=== PATIENT | female | born 1960 | race Caucasian/White ===

== ENCOUNTER 2024-07-17 12:40 | Inpatient (IN) ==
[2024-07-17 14:30] LABS: Basophils # (auto) 0.03 K/uL (0.00-0.20); Basophils % (auto) 0.3 %; Hemoglobin 14.8 g/dl (12.0-16.0); Immature Granulocytes # (auto) 0.02 K/uL (0.01-0.20); Immature Granulocytes % (auto) 0.2 %; Lymphocytes # (auto) 1.39 K/uL (1.20-3.40); Lymphocytes % (auto) 16.1 %; Mean Corpuscular Hemoglobin 29.5 pg (25.0-34.0); Mean Corpuscular Hgb Conc 34.4 g/dL (32.0-36.0); Mean Corpuscular Volume 85.8 fL (80.0-100.0); Mean Platelet Volume 9.4 fL (9.4-12.4); Monocytes # (auto) 0.54 K/uL (0.11-0.59); Monocytes % (auto) 6.3 %; Neutrophils # (auto) 6.66 K/uL (1.40-6.50); Neutrophils % (auto) 77.1 %; Platelet Count 350 K/uL (130-400); RDW Coefficient of Variation 13.4 % (11.5-14.5); RDW Standard Deviation 41.5 fL (36.4-46.3); Red Blood Count 5.01 M/uL (4.20-5.40); White Blood Count 8.64 K/ul (4.8-10.8)
[2024-07-17 14:49] LABS: Albumin Globulin Ratio 1.5 (0.9-2); Albumin Level 4.5 gm/dl (3.4-5.0); BUN Creatinine Ratio 22.4 (10-20); Bilirubin,Total 0.5 mg/dl (0.2-1.0); Calcium 9.6 mg/dl (8.6-10.3); Creatinine Clr Calc Pharmacy 56.3 ml/min; Total Protein 7.5 gm/dl (6.0-8.3)
[2024-07-17] MEDS: cefTRIAXone SODIUM 2,000 MG/50 ML BAG IV STA (14:57)
--- NOTE | 2024-07-17 15:07 | History & Physical Report ---
Date of Service July 17, 2024 Assessment & Plan (1) Confusion: (2) UTI (urinary tract infection): Plan: Ester Khalil is 63y/o F with PMHx significant for mild intellectual disability, hypothyroidism, HLD, intermittent asthma, osteoarthritis of R knee, GERD without esophagitis and allergic rhinitis who is being admitted under our service due to confusion which is likely secondary to her acute underlying UTI with preliminary urine culture growing Citrobacter koseri. Check head CT given increasing confusion/altered mentation level. Underlying intellectual disability however patient is typically A&Ox4. Now mostly A&O to self. S/p dose of IV Rocephin in the ED. Continue IV Rocephin pending urine culture sensitivities. Obtain PT/OT evaluations. (3) Hypothyroidism: Plan: Continue levothyroxine. Other Chronic Medical Conditions: Asthma - Continue Singulair. DVT Prophylaxis: SCDs/TEDs for now pending head CT results. Code Status: FULL CODE PCP: KRAIG Floyd Disposition: Admit to med/surg for further inpatient evaluation and management. Patient seen in collaboration with Dr. Alvarez. Please see addendum. I spent a total of 40 minutes coordinating, documenting, and providing care for this patient excluding time spent in the performance of separately billed services or time spent by another provider/QHP. This included personally reviewing all current laboratories and imaging studies, medical reconciliation, outpatient chart review and discussion with specialists. This chart was completed in part utilizing Speech Voice Recognition Software. Grammatical errors, random word insertions, pronoun errors, and incomplete sentences are an occasional consequence of this system due to software limitations, ambient noise, and hardware issues. Any formal questions or concerns about the content, text, or information contained within the body of this dictation should be directly addressed to the provider for clarification. History of Present Illness Chief Complaint: Confusion Primary Care Provider: KRAIG Floyd Ester Khalil is 63y/o F with PMHx significant for mild intellectual disability, hypothyroidism, HLD, intermittent asthma, GERD without esophagitis and allergic rhinitis who presented to the ED via EMS from home as her caregivers were concerned about increased confusion. Majority of history obtained from discussion with patient's caregiver through [facility]. Additional history obtained via chart review. Patient previously seen and evaluated in the ED yesterday due to confusion. Diagnosed with a UTI and discharged home on a course of Keflex. Preliminary urine culture growing Citrobacter koseri, sensitivities pending. Patient initially quite somnolent upon entry into her room in the ED however she was able to be aroused with tactile stimulation. Patient mostly A&O to self however does respond appropriately to direct questioning. Per her caregivers at bedside, patient is usually A&Ox4. She lives at home alone however is visited daily by her caregivers through [facility]. Yesterday patient would not allow her caregivers to enter her apartment which is very unusual. Patient was reportedly experiencing visual hallucinations yesterday. Upon caregiver arrival at her apartment today, patient was found sitting in a room with the lights off. Patient again was visually hallucinating and believed that her apartment was on fire. This has never happened before per discussion with her caregivers. Patient usually handles her own medications and performs ADLs independently. She does not drive. Patient's brother lives locally per her caregivers and he was the one who brought her into the ED yesterday. Patient did not take any of her prescribed Keflex from yesterday. Patient offers no complaints. Denies any SOB, chest pain, abdominal pain, dysuria, hematuria or increased urinary frequency with direct questioning. Endorses that she is feeling hungry. Did reportedly breakfast this morning. Patient is not oriented to time or place however is able to recall her caregivers' names whom are at bedside. Home Medications Medication Instructions Recorded Confirmed Type levothyroxine 125 mcg tablet 125 mcg PO DAILY #0 tabs 04/15/13 07/17/24 History olopatadine 0.1 % eye drops 1 drp OPB UD PRN Dry Eyes #0 BTLS 04/15/13 07/17/24 History cephalexin 500 mg capsule 500 mg PO TID 7 days #21 caps 07/16/24 07/17/24 Rx montelukast 10 mg tablet 10 mg PO DAILY 07/16/24 07/17/24 History omeprazole 20 mg capsule,delayed 20 mg PO DAILY 07/16/24 07/17/24 History release Past Med/Surg History Problem List Hypothyroidism Confusion UTI (urinary tract infection) (Acute) Thyroid dysfunction (Chronic) Syncope (Acute) Syncope (Acute) Social History Smoking Status: Never smoker Preferred Language: Yemeni Feels Safe at Home: Yes Review of Systems Review of Systems: Patient does well with direct yes/no questioning. At least ten systems reviewed and negative, except as noted in the HPI. Physical Exam Physical Exam: General/Neurologic: F. Nontoxic appearance. NAD. Sitting up in bed. Caregivers from [facility] at bedside. Initially somnolent however easily aroused with both tactile and verbal stimulation. A&O mostly to self however does well with direct questioning. HEENT: Normocephalic, atraumatic. Conjunctivae normal. External ear and nose normal. Moist mucous membranes. Respiratory: Normal respiratory effort. Decreased lung sounds throughout. On RA. No accessory muscle use. Cardiovascular: Regular rate and rhythm. Normal peripheral pulses. + BLE edema. Abdomen/GI: Normal bowel sounds, soft, nondistended, nontender to palpation in all quadrants. Extremities/Musculoskeletal: No cyanosis or clubbing. Actively moves all extremities. + chronic R-sided limp. Results & Data Results & Data Vital Signs (Past 12 Hours) Vital Signs Temp Pulse Resp BP Pulse Ox O2 Del Method 07/17/24 14:30 137/62 07/17/24 14:20 59 L 12 98 07/17/24 14:02 62 13 07/17/24 14:01 125/54 L 07/17/24 13:30 114/60 07/17/24 13:12 73 16 95 07/17/24 13:06 83 18 96 07/17/24 13:01 112/51 L 07/17/24 12:58 65 07/17/24 12:55 36.1 C L 68 18 109/62 97 Room Air 07/17/24 12:54 62 18 97 07/17/24 12:49 109/62 Laboratory Results Short CBC 07/17/24 Range/Units 14:15 WBC 8.64 (4.8-10.8) K/ul Hgb 14.8 (12.0-16.0) g/dl Hct 43.0 (37.0-47.0) % Plt Count 350 (130-400) K/uL BMP 07/17/24 14:15 Sodium 141 Potassium 4.0 Chloride 104 Carbon Dioxide 30 BUN 22 Creatinine 0.98 Glucose 107 H Calcium 9.6 Liver Function 07/17/24 Range/Units 14:15 Total Bilirubin 0.5 (0.2-1.0) mg/dl AST 14 (13-39) U/L ALT 16 (7-52) U/L Alkaline Phosphatase 87 (34-104) U/L Albumin 4.5 (3.4-5.0) gm/dl Medications Administered Ceftriaxone Sodium (Rocephin) 2,000 mg in 50 mls @ 100 mls/hr IV NOW STA Stop: 07/17/24 15:14 Last Admin: 07/17/24 14:57 Dose: 100 mls/hr Documented By: VME Code Status & VTE Plan Code Status FULL CODE Supervising Physician Co-Signing Physician Notes Attending addendum: The patient was seen and examined in the emergency room in presence of the caregivers She was brought in with increasing confusion and hallucination likely secondary to ongoing UTI She was in the ER yesterday and was noted to have a UTI was given Keflex and was sent home She was noted to be very confused this morning by the caregivers and she was hallucinating at the point she was brought into emergency room No documented fever, nausea vomiting fall or loss of consciousness On examination Has been feeling much better and communicating normally Remains hemodynamically stable and is afebrile Chestoccasional crackles at the bases HeartS1-S2, regular Abdomenbenign Extremities- has 1+ bilateral leg edema CNSalert, awake and oriented x 3, generally weak but no focal neurodeficit Her admission labs and medications reviewed Urine culture is growing Citrobacter koseri , sensitivities pending Started on intravenous ceftriaxone and will be continued Advised to drink more fluid Will get PT OT evaluation prior to discharge Agree with assessment and plan as outlined above by dilan Harvey PA-C and take the full responsible care in the hospital Total time taken to document all this was [address] Carey Alvarez (2) UTI (urinary tract infection) Hematuria presence: without hematuria Urinary tract infection type: site unspecified Qualified Code(s): N39.0 - Urinary tract infection, site not specified (3) Hypothyroidism Hypothyroidism type: unspecified Qualified Code(s): E03.9 - Hypothyroidism, unspecified
--- NOTE | 2024-07-17 15:23 | Emergency Department Note ---
Impression & Plan UTI (urinary tract infection), Confusion, Delirium due to general medical condition ED Provider Note NAME: KALEE RYAN AGE: 63 SEX: F : 1960 ARRIVES VIA: Ambulance INFORMANT: [Patient], ED PROVIDER(S): Francy Rivas MD CHIEF COMPLAINT: Hallucinations, confusion HPI: This is a 63-year-old female presenting for confusion. Patient is with 2 staff members from the [facility] who state that patient was seen here yesterday. Brother said it was okay for her to be discharged at this morning when they arrived to help her she was hallucinating. She thought that the house was on fire. Yesterday she would not let anyone into the house. Today she seems to be smiling /waving to people that are not there . ROS: See above HPI for pertinent positives & negatives. A total of 10 systems reviewed and were otherwise negative. PAST MEDICAL HISTORY: See Below PAST SURGICAL HISTORY: See Below FAMILY HISTORY: See Below SOCIAL HISTORY: See Below HOME MEDICATIONS: See Below ALLERGIES: See Below VITALS: See Below PHYSICAL EXAMINATION: General: resting comfortably in no acute distress Head: Normocephalic and atraumatic Eyes: Normal inspection, extraocular muscles intact Ear, nose, throat: Normal external exam Neck: Normal range of motion Respiratory: lungs clear to auscultation bilaterally Cardiovascular: Regular rate/rhythm, no murmur GI: soft, nontender, no guarding or rebound Extremities: nontender, moves all extremities Neuro: The patient awake and alert, appropriately conversive, no focal deficits, symmetric faces, no motor dysfunction Skin: Warm, dry, and intact, MEDICAL DECISION MAKING: This is a 63-year-old female presenting for confusion. Patient seen here yesterday basic blood work, urinalysis. Does reveal signs of UTI without other abnormalities. Patient sent home and returns due to confusion persistent. - Will admit for UTI, given ceftriaxone IV here. - Urine culture positive for Citrobacter Differential diagnosis: UTI, cystitis, pyelonephritis, stroke Independent History obtained from: Staff members at [facility] Diagnostics interpreted by me: ECG: None Cardiac Monitoring: An order was placed for continuous cardiac monitoring. The monitor shows a rate of 78 with sinus rhythm. Past Med/Surg History Problem List (Updated 07/17/24 @ 18:59 by Francy Rivas MD) Delirium due to general medical condition (Acute) Hypothyroidism Confusion (Acute) UTI (urinary tract infection) (Acute) Thyroid dysfunction (Chronic) Syncope (Acute) Syncope (Acute) Social History Smoking Status: Never smoker Preferred Language: [place] Feels Safe at Home: Yes Allergies Allergies Allergy/AdvReac Type Severity Reaction Status Date / Time No Known Allergies Allergy Unverified 07/17/24 17:49 Home Meds Home Medications Medication Instructions Recorded Confirmed levothyroxine 125 mcg tablet 125 mcg PO DAILY #0 tabs 04/15/13 07/17/24 olopatadine 0.1 % eye drops 1 drp OPB UD PRN Dry Eyes #0 BTLS 04/15/13 07/17/24 montelukast 10 mg tablet 10 mg PO DAILY 07/16/24 07/17/24 omeprazole 20 mg capsule,delayed 20 mg PO DAILY 07/16/24 07/17/24 release Previous Rx's Medication Instructions Recorded cephalexin 500 mg capsule 500 mg PO TID 7 days #21 caps 07/16/24 Results & Data (ED) Vital Signs Vital Signs - 24 hr 07/17/24 12:49 07/17/24 12:54 07/17/24 12:55 Temperature 36.1 C L Temperature Source Oral Pulse Rate 62 68 Pulse Rate from SpO2 Sensor 63 Pulse Rhythm Regular Pulse Strength Normal Respiratory Rate 18 18 Respiratory Effort / Characteristics Non-Labored Respiratory Depth Normal Respiratory Pattern Regular Blood Pressure 109/62 109/62 Blood Pressure Mean 90 77 Blood Pressure Position Lying Pulse Oximetry 97 97 Oxygen Delivery Method Room Air Sepsis Recent Fever Within 48 Hours No Sepsis New/Unexplained Change in Mental Status No Sepsis Action Taken by Nursing No Action Required 07/17/24 12:58 07/17/24 13:01 07/17/24 13:06 Temperature Temperature Source Pulse Rate 65 83 Pulse Rate from SpO2 Sensor 82 Pulse Rhythm Pulse Strength Respiratory Rate 18 Respiratory Effort / Characteristics Respiratory Depth Respiratory Pattern Blood Pressure 112/51 L Blood Pressure Mean 92 Blood Pressure Position Pulse Oximetry 96 Oxygen Delivery Method Sepsis Recent Fever Within 48 Hours Sepsis New/Unexplained Change in Mental Status Sepsis Action Taken by Nursing 07/17/24 13:12 07/17/24 13:30 07/17/24 14:01 Temperature Temperature Source Pulse Rate 73 Pulse Rate from SpO2 Sensor 72 Pulse Rhythm Pulse Strength Respiratory Rate 16 Respiratory Effort / Characteristics Respiratory Depth Respiratory Pattern Blood Pressure 114/60 125/54 L Blood Pressure Mean 83 78 Blood Pressure Position Pulse Oximetry 95 Oxygen Delivery Method Sepsis Recent Fever Within 48 Hours Sepsis New/Unexplained Change in Mental Status Sepsis Action Taken by Nursing 07/17/24 14:02 07/17/24 14:20 07/17/24 14:30 Temperature Temperature Source Pulse Rate 62 59 L Pulse Rate from SpO2 Sensor 59 L Pulse Rhythm Pulse Strength Respiratory Rate 13 12 Respiratory Effort / Characteristics Respiratory Depth Respiratory Pattern Blood Pressure 137/62 Blood Pressure Mean 98 Blood Pressure Position Pulse Oximetry 98 Oxygen Delivery Method Sepsis Recent Fever Within 48 Hours Sepsis New/Unexplained Change in Mental Status Sepsis Action Taken by Nursing Laboratory Data 07/17/24 14:15 07/17/24 14:15 Lab Results 07/17/24 Range/Units 14:15 WBC 8.64 (4.8-10.8) K/ul RBC 5.01 (4.20-5.40) M/uL Hgb 14.8 (12.0-16.0) g/dl Hct 43.0 (37.0-47.0) % MCV 85.8 (80.0-100.0) fL MCH 29.5 (25.0-34.0) pg MCHC 34.4 (32.0-36.0) g/dL RDW Std Deviation 41.5 (36.4-46.3) fL RDW Coeff of Yann 13.4 (11.5-14.5) % Plt Count 350 (130-400) K/uL MPV 9.4 (9.4-12.4) fL Immature Gran % (Auto) 0.2 % Neut % (Auto) 77.1 % Lymph % (Auto) 16.1 % [place] % (Auto) 6.3 % Eos % (Auto) 0.0 % Baso % (Auto) 0.3 % Neut # (Auto) 6.66 H (1.40-6.50) K/uL Lymph # (Auto) 1.39 (1.20-3.40) K/uL [place] # (Auto) 0.54 (0.11-0.59) K/uL Eos # (Auto) 0.00 (0.00-0.50) K/uL Baso # (Auto) 0.03 (0.00-0.20) K/uL Immature Gran # (Auto) 0.02 (0.01-0.20) K/uL Sodium 141 (136-145) mmol/L Potassium 4.0 (3.5-5.1) mmol/L Chloride 104 (98-107) mmol/L Carbon Dioxide 30 (21-32) mmol/L Anion Gap 7 (3-11) BUN 22 (6-23) mg/dl Creatinine 0.98 (0.6-1.2) mg/dl Est Cr Clr Drug Dosing 56.3 ml/min eGFR 65.67 BUN/Creatinine Ratio 22.4 H (10-20) Glucose 107 H (70-99(Fasting)) mg/dl Calcium 9.6 (8.6-10.3) mg/dl Total Bilirubin 0.5 (0.2-1.0) mg/dl AST 14 (13-39) U/L ALT 16 (7-52) U/L Alkaline Phosphatase 87 (34-104) U/L Total Protein 7.5 (6.0-8.3) gm/dl Albumin 4.5 (3.4-5.0) gm/dl Globulin 3.0 (2.5-4.0) gm/dl Albumin/Globulin Ratio 1.5 (0.9-2) Administered Medications Discontinued Medications Ceftriaxone Sodium (Rocephin) 2,000 mg in 50 mls @ 100 mls/hr IV NOW STA Stop: 07/17/24 15:14 Last Infusion: 07/17/24 15:20 Dose: Infused Documented By: Admin: 07/17/24 14:57 Dose: 100 mls/hr Documented By: NANETTE Miscellaneous Information (Patient's Allergy Info Needs Entered) 1 each N/A Q10M [facility] Stop: 08/16/24 17:44 Last Admin: 07/17/24 18:47 Dose: Not Given Documented By: NICOLASA Discharge Plan Visit Data Chief Complaint: Confusion ED Provider: Francy Rivas Discharge Problem: UTI (urinary tract infection), Confusion, Delirium due to general medical condition Patient Disposition: Admitted As Inpatient Discharge Instructions Interventions: ED Discharge Assessment Last Done: 07/17/24 17:34
--- NOTE | 2024-07-17 17:00 | CT Scan Report ---
Clinical History: Altered mental status Technique: Axial computed tomography images were obtained of the brain from the vertex to the skull base without intravenous contrast. Findings: There is no sign of intracranial hemorrhage. There is normal hansen-white matter differentiation with no sign of acute or old infarction. No midline shift or other form of herniation is identified. There is no hydrocephalus. No obvious mass lesion is seen on this noncontrast examination. The visualized portions of the orbits and paranasal sinuses appear unremarkable. The mastoid air cells appear clear Impression: Unremarkable noncontrast CT of the brain Electronically signed by Krunal Tariq 07-17-2024 5:00 PM
[2024-07-17] MEDS ORDERED: ONDANSETRON INJ 2 MG/ML 2 ML VIAL IV PRN (17:34)
[2024-07-17] MEDS ORDERED: POLYETHYLENE (MIRALAX) 17 GM PACK PO PRN (17:34)
[2024-07-17] MEDS ORDERED: MAGNESIUM HYDROXIDE SUSP 30 ML UDC PO PRN (17:34)
[2024-07-17] MEDS ORDERED: ARTIFICIAL TEARS OP PRN (17:51)
[2024-07-17] MEDS: Patient's ALLERGY Info needs ENTERED SCH (18:47)
[2024-07-18] MEDS: LEVOTHYROXINE SODIUM 125 MCG TABLET PO SCH (05:45)
[2024-07-18 06:57] LABS: Hematocrit (blood only) 41.7 % (37.0-47.0); Hemoglobin 14.2 g/dl (12.0-16.0); Mean Corpuscular Hemoglobin 29.3 pg (25.0-34.0); Mean Corpuscular Hgb Conc 34.1 g/dL (32.0-36.0); Mean Corpuscular Volume 86.2 fL (80.0-100.0); Platelet Count 310 K/uL (130-400); RDW Coefficient of Variation 13.2 % (11.5-14.5); RDW Standard Deviation 41.1 fL (36.4-46.3); Red Blood Count 4.84 M/uL (4.20-5.40); White Blood Count 6.36 K/ul (4.8-10.8)
[2024-07-18 07:17] LABS: BUN Creatinine Ratio 30.1 (10-20); Calcium 8.8 mg/dl (8.6-10.3); Creatinine Clr Calc Pharmacy 68.5 ml/min; Magnesium 2.1 mg/dl (1.7-2.4); Potassium 3.7 mmol/L (3.5-5.1)
--- NOTE | 2024-07-18 07:50 | Hospitalist Progress Note ---
Date of Service July 18, 2024 Assessment & Plan (1) Confusion: (2) UTI (urinary tract infection): Plan: Ester Khalil is 63y/o F with PMHx significant for mild intellectual disability, hypothyroidism, HLD, intermittent asthma, osteoarthritis of R knee, GERD without esophagitis and allergic rhinitis who is being admitted under our service due to confusion which is likely secondary to her acute underlying UTI with preliminary urine culture growing Citrobacter koseri. -Head CT obtained 07/17; unremarkable and no signs of ICH, SDH, or midline shift. -IV Rocephin started in the ED; culture and sensitivities have returned and sensitive to Rocephin; will continue for now. -Underlying intellectual disability; however patient is AO x 3 ; however, now reliable regarding her medical ailments and not able to participate in a meaningful conversation regarding her hospital stay.; -Lengthy conversation held with Joe who is the director at [facility] who indicated that this is not her baseline and he anticipates that at her baseline she would be able to answer these questions. -She, at baseline, is relatively sharp cognitively and is able to live independently for the past numerous years. She does have people check in on her from [facility] numerous times throughout the week and they drive her to appointments. -Suspect patient will return more to baseline functional cognitive status over next 24 to 48 hours with IV antibiotic infusing. -Anticipate patient to be hospitalized throughout the weekend. -PT OT evals pending. (3) Hypothyroidism: Plan: Continue levothyroxine. Other Chronic Medical Conditions: Asthma - Continue Singulair. Disposition: DVT Prophylaxis: SCDs/TEDs for now pending head CT results. Code Status: FULL CODE PCP: KRAIG Floyd I spent a total of 56 minutes coordinating, documenting, and providing care for this patient excluding time spent in the performance of separately billed services or time spent by another provider/QHP. This included personally rev iewing all current laboratories and imaging studies, medical reconciliation, outpatient chart review and discussion with specialists. Admission and Anticipated Discharge Date Admission Date: July 17, 2024 Supervising Physician Co-Signing Physician Notes I have reviewed the advanced practitioner's documentation, and I agree with, and take responsibility for the plan of care Subjective Patient sitting in her hospital bed in no apparent distress - she is focal and able to answer simple questions; AAO x 2. She is able to state her birthday, what year it is and that she is in the hospital however is unsure of why she is in the hospital. I asked her directly a few specific questions including what kind of animal Cira and [place] are from [employer] and she was unable to answer this. Lengthy conversation held with Joe who is the director at [facility] who indicated that this is not her baseline and he anticipates that at her baseline she would be able to answer these questions. She, at baseline, is relatively sharp cognitively and is able to live independently for the past numerous years. She does have people check in on her from [facility] numerous times throughout the week and they drive her to appointments. Limited ROS due to intellectual disability. See A/P for further details. Review of Systems Review of Systems: Unobtainable due to cognitive status Limited ROS due to intellectual disability. Patient denies pain, shortness of breath, chest pain. Physical Exam Physical Exam: Neuro: AAOx4, PERRLA, no aphagia, memory changes, CNII-XII grossly intact HEENT: head normocephalic, moist mucus membranes CV: S1/S2, (-) M/G/R, (-) edema, cap refill < 3 seconds Resp: Lungs CTA in all [place]. On RA GI: Abdomen S/NT/ND, Ax4 bowel sounds, (-) CVA tenderness Musculoskeletal: 5/5 B/L UE strength, 5/5 B/L LE strength. No gait disturbance Skin: (-) rashes , (-) erythema. Psych: euthymic mood Results & Data Results & Data Vital Signs (Past 12 Hours) Vital Signs Temp Pulse Resp BP Pulse Ox O2 Del Method 07/18/24 07:42 36.5 C 70 16 113/72 97 Room Air 07/17/24 20:45 36.3 C L 86 16 128/81 95 Room Air Laboratory Results Short CBC 07/17/24 07/18/24 Range/Units 14:15 05:59 WBC 8.64 6.36 (4.8-10.8) K/ul Hgb 14.8 14.2 (12.0-16.0) g/dl Hct 43.0 41.7 (37.0-47.0) % Plt Count 350 310 (130-400) K/uL BMP 07/17/24 07/18/24 14:15 05:59 Sodium 141 139 Potassium 4.0 3.7 Chloride 104 105 Carbon Dioxide 30 28 BUN 22 25 H Creatinine 0.98 0.83 Glucose 107 H 90 Calcium 9.6 8.8 Liver Function 07/17/24 Range/Units 14:15 Total Bilirubin 0.5 (0.2-1.0) mg/dl AST 14 (13-39) U/L ALT 16 (7-52) U/L Alkaline Phosphatase 87 (34-104) U/L Albumin 4.5 (3.4-5.0) gm/dl (3) Hypothyroidism Hypothyroidism type: unspecified Qualified Code(s): E03.9 - Hypothyroidism, unspecified
[2024-07-18] MEDS: ADVANCED PROBIOTIC 625 MG CAPSULE PO SCH (08:31)
[2024-07-18] MEDS: MONTELUKAST SODIUM 10 MG TABLET PO SCH (08:31)
[2024-07-18] MEDS: PANTOprazole 40 MG TAB PO SCH (08:31)
[2024-07-18] MEDS: cefTRIAXone SODIUM 2,000 MG/50 ML BAG IV SCH (14:58)
[2024-07-19 06:25] LABS: Hematocrit (blood only) 40.2 % (37.0-47.0); Hemoglobin 13.7 g/dl (12.0-16.0); Mean Corpuscular Hemoglobin 29.5 pg (25.0-34.0); Mean Corpuscular Hgb Conc 34.1 g/dL (32.0-36.0); Mean Corpuscular Volume 86.5 fL (80.0-100.0); Mean Platelet Volume 9.6 fL (9.4-12.4); Platelet Count 310 K/uL (130-400); RDW Coefficient of Variation 13.3 % (11.5-14.5); RDW Standard Deviation 41.4 fL (36.4-46.3); Red Blood Count 4.65 M/uL (4.20-5.40); White Blood Count 6.49 K/ul (4.8-10.8)
[2024-07-19 06:54] LABS: BUN Creatinine Ratio 32.1 (10-20); Calcium 8.9 mg/dl (8.6-10.3); Creatinine Clr Calc Pharmacy 72.8 ml/min; Potassium 3.9 mmol/L (3.5-5.1)
--- NOTE | 2024-07-19 07:49 | Hospitalist Progress Note ---
Date of Service July 19, 2024 Assessment & Plan (1) Confusion: (2) UTI (urinary tract infection): Plan: Ester Khalil is 63y/o F with PMHx significant for mild intellectual disability, hypothyroidism, HLD, intermittent asthma, osteoarthritis of R knee, GERD without esophagitis and allergic rhinitis who is being admitted under our service due to confusion which is likely secondary to her acute underlying UTI with preliminary urine culture growing Citrobacter koseri. -Head CT 07/17; unremarkable -IV Rocephin started in the ED; culture and sensitivities have returned and sensitive to Rocephin; continue -Underlying intellectual disability; however patient is AO x 3 ; improving and able to participate in a meaningful conversation regarding her hospital stay. -07/18 s/w Joe, director at [facility], who indicated that this is not her baseline and he anticipates that at her baseline she would be able to answer these questions. -She, at baseline, is relatively sharp cognitively and is able to live independently for the past numerous years. She does have people check in on her from [facility] numerous times throughout the week and they drive her to appointments. -Suspect pt is reaching baseline functional cognitive status -Anticipate patient can possibly be discharged tomorrow 07/20 with transition to PO abx -PT OT evals recc return home with assistance from caregivers throughout the week (3) Hypothyroidism: Plan: Continue levothyroxine. Other Chronic Medical Conditions: Asthma - Continue Singulair. Disposition: DVT Prophylaxis: SCDs/TEDs for now pending head CT results. Code Status: FULL CODE PCP: KRAIG Floyd Anticipate return to [facility] independent living 07/20 I spent a total of 55 minutes coordinating, documenting, and providing care for this patient excluding time spent in the performance of separately billed services or time spent by another provider/QHP. This included personally reviewing all current laboratories and imaging studies, medical reconciliation, outpatient chart review and discussion with specialists. Admission and Anticipated Discharge Date Admission Date: July 17, 2024 Supervising Physician Co-Signing Physician Notes Attending addendum The patient was seen and examined in medical floor She has been feeling much better today and seems to be mentally lot clear Denies any significant symptoms On examination Lying in bed without any apparent distress Remains hemodynamically stable Physical examination remains unremarkable Her labs and medications reviewed Has Citrobacter Koseri UTI which is pansensitive and has been getting intraveno us antibiotic with ceftriaxone Her confusion with history of mild intellectual impairment has improved a lot Agree with assessment and plan as outlined above by KRAIG Hill and take the full responsibility of care in the hospital Total time taken to document all this was [address] Carey Alvarez Subjective Patient sitting in her hospital bed in no apparent distress - her mental status has significantly improved from yesterday. She is able to answer all questions appropriately; AO x 3. Per discussion with Joe who is the director of [facility] yesterday her baseline is relatively sharp which appears that she is entering more near her baseline. She is able to deny chest pain, dizziness, shortness of breath. Appreciate Limited ROS due to intellectual disability but does appear pretty appropriate. Patient on day 3 of IV antibiotics; anticipate possible discharge for Thursday 07/20 with transition to oral. See A/P for further details. Review of Systems Review of Systems: Limited ROS due to intellectual disability. Patient denies pain, shortness of breath, chest pain, abdominal pain. Physical Exam Physical Exam: Neuro: AAOx4, PERRLA, no aphagia, memory changes, CNII-XII grossly intact HEENT: head normocephalic, moist mucus membranes CV: S1/S2, (-) M/G/R, (-) edema, cap refill < 3 seconds Resp: Lungs CTA in all hidalgo. On RA GI: Abdomen S/NT/ND, Ax4 bowel sounds, (-) CVA tenderness Musculoskeletal: 5/5 B/L UE strength, 5/5 B/L LE strength. No gait disturbance Skin: (-) rashes , (-) erythema. Psych: euthymic mood Results & Data Results & Data Laboratory Results Short CBC 07/19/24 Range/Units 06:02 WBC 6.49 (4.8-10.8) K/ul Hgb 13.7 (12.0-16.0) g/dl Hct 40.2 (37.0-47.0) % Plt Count 310 (130-400) K/uL BMP 07/19/24 06:02 Sodium 140 Potassium 3.9 Chloride 108 H Carbon Dioxide 26 BUN 25 H Creatinine 0.78 Glucose 103 H Calcium 8.9 (3) Hypothyroidism Hypothyroidism type: unspecified Qualified Code(s): E03.9 - Hypothyroidism, unspecified
[2024-07-19] MEDS: ACETAMINOPHEN 325 MG TAB PO PRN (08:31)
[2024-07-19 15:21] VITALS: RESP 16
[2024-07-20 07:29] VITALS: BP 137/77; PULSE 60; TEMP 97.7; O2SAT 96
[2024-07-20 07:35] LABS: Hematocrit (blood only) 40.9 % (37.0-47.0); Hemoglobin 13.6 g/dl (12.0-16.0); Mean Corpuscular Hgb Conc 33.3 g/dL (32.0-36.0); Mean Corpuscular Volume 87.2 fL (80.0-100.0); Mean Platelet Volume 9.8 fL (9.4-12.4); Platelet Count 303 K/uL (130-400); RDW Coefficient of Variation 13.3 % (11.5-14.5); RDW Standard Deviation 41.4 fL (36.4-46.3); Red Blood Count 4.69 M/uL (4.20-5.40); White Blood Count 7.45 K/ul (4.8-10.8)
[2024-07-20 07:56] LABS: BUN Creatinine Ratio 22.7 (10-20); Calcium 8.8 mg/dl (8.6-10.3); Creatinine Clr Calc Pharmacy 64.6 ml/min; Potassium 4.2 mmol/L (3.5-5.1)
--- NOTE | 2024-07-20 13:30 | Discharge Summary ---
Date of Service July 20, 2024 Admission HPI Per Admitting Provider Ester Khalil is 63y/o F with PMHx significant for mild intellectual disability, hypothyroidism, HLD, intermittent asthma, GERD without esophagitis and allergic rhinitis who presented to the ED via EMS from home as her caregivers were concerned about increased confusion. Majority of history obtained from discussion with patient's caregiver through [facility]. Additional history obtained via chart review. Patient previously seen and evaluated in the ED yesterday due to confusion. Diagnosed with a UTI and discharged home on a course of Keflex. Preliminary urine culture growing Citrobacter koseri, sensitivities pending. Patient initially quite somnolent upon entry into her room in the ED however she was able to be aroused with tactile stimulation. Patient mostly A&O to self however does respond appropriately to direct questioning. Per her caregivers at bedside, patient is usually A&Ox4. She lives at home alone however is visited daily by her caregivers through [facility]. Yesterday patient would not allow her caregivers to enter her apartment which is very unusual. Patient was reportedly experiencing visual hallucinations yesterday. Upon caregiver arrival at her apartment today, patient was found sitting in a room with the lights off. Patient again was visually hallucinating and believed that her apartment was on fire. This has never happened before per discussion with her caregivers. Patient usually handles her own medications and performs ADLs independently. She does not drive. Patient's brother lives locally per her caregivers and he was the one who brought her into the ED yesterday. Patient did not take any of her prescribed Keflex from yesterday. Patient offers no complaints. Denies any SOB, chest pain, abdominal pain, dysuria, hematuria or increased urinary frequency with direct questioning. Endorses that she is feeling hungry. Did reportedly breakfast this morning. Patient is not oriented to time or place however is able to recall her caregivers' names whom are at bedside. Admission Exam Per Admitting Provider General/Neurologic: F. Nontoxic appearance. NAD. Sitting up in bed. Caregivers from [facility] at bedside. Initially somnolent however easily aroused with both tactile and verbal stimulation. A&O mostly to self however does well with direct questioning. HEENT: Normocephalic, atraumatic. Conjunctivae normal. External ear and nose normal. Moist mucous membranes. Respiratory: Normal respiratory effort. Decreased lung sounds throughout. On RA. No accessory muscle use. Cardiovascular: Regular rate and rhythm. Normal peripheral pulses. + BLE edema. Abdomen/GI: Normal bowel sounds, soft, nondistended, nontender to palpation in all quadrants. Extremities/Musculoskeletal: No cyanosis or clubbing. Actively moves all extremities. + chronic R-sided limp. Principal Diagnosis complicated UTI Discharge Exam Neuro: AAOx3 (back to baseline), PERRLA, no aphagia, memory changes, CNII-XII grossly intact HEENT: head normocephalic, moist mucus membranes CV: S1/S2, (-) M/G/R, (-) edema, cap refill < 3 seconds Resp: Lungs CTA in all hidalgo. On RA GI: Abdomen S/NT/ND, Ax4 bowel sounds, (-) CVA tenderness (+) some incontinence Musculoskeletal: 5/5 B/L UE strength, 5/5 B/L LE strength. has a light limp on left side Skin: (-) rashes , (-) erythema. Psych: euthymic mood Discharge Data Allergies Allergy/AdvReac Type Severity Reaction Status Date / Time No Known Allergies Allergy Unverified 07/17/24 17:49 Consultations 07/17/24 15:11 ED Decision to Admit Stat Ordered Studies 07/17/24: Head CT: Findings: There is no sign of intracranial hemorrhage. There is normal hansen-white matter differentiation with no sign of acute or old infarction. No midline shift or other form of herniation is identified. There is no hydrocephalus. No obvious mass lesion is seen on this noncontrast examination. The visualized portions of the orbits and paranasal sinuses appear unremarkable. The mastoid air cells appear clear Impression: Unremarkable noncontrast CT of the brain Hospital Course (1) Delirium due to general medical condition: (2) Hypothyroidism: Continue levothyroxine. Other Chronic Medical Conditions: Asthma - Continue Singulair. Disposition: DVT Prophylaxis: SCDs/TEDs for now pending head CT results. Code Status: FULL CODE PCP: KRAIG Floyd Anticipate return to [facility] independent living 07/20 I spent a total of 55 minutes coordinating, documenting, and providing care for this patient excluding time spent in the performance of separately billed services or time spent by another provider/QHP. This included personally reviewing all current laboratories and imaging studies, medical reconciliation, outpatient chart review and discussion with specialists. (3) Confusion: (4) UTI (urinary tract infection): Ester Khalil is 63y/o F with PMHx significant for mild intellectual disability, hypothyroidism, HLD, intermittent asthma, osteoarthritis of R knee, GERD without esophagitis and allergic rhinitis who is being admitted under our service due to confusion which is likely secondary to her acute underlying UTI with preliminary urine culture growing Citrobacter koseri. -Head CT 07/17; unremarkable -IV Rocephin started in the ED; culture and sensitivities have returned and sensitive to Rocephin; continue -Underlying intellectual disability; however patient is AO x 3 ; improving and able to participate in a meaningful conversation regarding her hospital stay. -07/18 s/w Joe, director at [facility], who indicated that this is not her baseline and he anticipates that at her baseline she would be able to answer these questions. -She, at baseline, is relatively sharp cognitively and is able to live independently for the past numerous years. She does have people check in on her from [facility] numerous times throughout the week and they drive her to appointments. -Suspect pt is reaching baseline functional cognitive status -Anticipate patient can possibly be discharged tomorrow 07/20 with transition to PO abx -[facility] with assistance from caregivers throughout the week Plan Ester Khalil is 63 year old female with a PMH that includes mild intellectual disability, hypothyroidism, HLD, intermittent asthma, osteoarthritis of R knee, GERD without esophagitis and allergic rhinitis who was admitted due to altered mental status which deemed secondary to her acute underlying UTI. A urine culture was obtained in the emergency room and grew Citrobacter koseri. A head CT was performed on 07/17 and unremarkable. She was started on IV antibiotics in the ED. Culture and sensitivities returned pansensitive to Rocephin. No leukocytosis was identified on labs. Otherwise her lab work was unremarkable. Each day over the weekend the patient continued to improve with her mental status and was able to participate in a meaningful conversation. I spoke with Joe the director at [facility] on Saturday and in person today, Thursday 07/20. Confirmed that she does live independently at baseline. Discussed that she does receive support regarding outpatient outings and staff does drive her to her appointments. There are concerns that she will not be able to keep track of her medications when she returns home. Her brother has recently returned home from [place] and is able to stay with her for a few days. [facility] will work on paperwork to increase the amount of supportive living that she has which can take a few days. Would support her receiving additional support at [facility] and even move towards a more personal-longterm setting within [facility] to meet her needs. OT did evaluate the patient and recommends that Returns home with extra support from caregivers. Patient did have a brief on and had an episode of incontinence. This was discussed with [facility] and they are receptive to her being discharged from the hospital and is in stable condition. She will receive 1 more dose of IV antibiotics prior to discharge today. Total Time Total Time Spent Total Time Spent (In Minutes): I spent a total of 46 minutes coordinating, documenting, and providing care for this patient excluding time spent inthe performance of separately billed services or time spent by another provider/QHP. Discharge Plan Discharge Items Patient Disposition: Home - Self-Care Reason For Visit: UTI, CONFUSION Discharge Diagnosis: complicated UTI Activity: Resume your previous activity Non-emergency contact: Primary Care Provider Call non-emergency contact if: your pain is unusual for you and your temperature is above 101.5 Follow-up/Referrals: Valorie Fowler CRNP [Primary Care Provider] - (Date & Time 07/24/2024 10:00 AM Provider: Valorie Fowler CRNP Family Practice [facility], [place] ) Diet: Regular Addtl Attending Provider Instructions: Ben Norman are a 63 year old presented to the [facility] with altered mental status which was deemed to be because you were having a urinary tract infection. We obtained a urine culture that was able to determine which bacteria you had in your urine. It is called "Citrobacter koseri" Blood work and a head CAT scan were obtained in the emergency room and normal. You were started on intravenous antibiotics. Each day over the weekend you continued to improve with her mental status and was able to participate in a meaningful conversation. Joe, from the [facility], has been involved with your improvement and we discussed that you have returned to your baseline cognitive status. Per Joe, your brother has recently returned home from [place] and is able to stay with you for a few days to ensure you are taking your medications. In the coming days, they will work on your getting additional support as well. We wish you well with your recovery. Please see below for medication changes and recommendations. MEDICATION CHANGES: 1. Please moss picker and take your oral antibiotic, Keflex 500 mg by mouth twice daily; starting on Friday 07/21 and continuing daily for four days, completing your antibiotic on SaturdayJuly 24. 2. Please take a daily probiotic while you are taking antibiotics and take them daily for one week after completing your antibiotics. SUMMARY OF TEST RESULTS: 1. 07/17/24: Head CT: FINDINGS: There is no sign of intracranial hemorrhage. There is normal hansen-white matter differentiation with no sign of acute or old infarction. No midline shift or other form of herniation is identified. There is no hydrocephalus. No obvious mass lesion is seen on this noncontrast examination. The visualized portions of the orbits and paranasal sinuses appear unremarkable. The mastoid air cells appear clear Impression: Unremarkable noncontrast CT of the brain RECOMMENDATIONS FOR FOLLOW-UP: 1. You have a follow up appointment for you to attend on SaturdayJuly 24 @ 10:00 AM with Valorie CORNELL at Family Practice in [facility], [place] OTHER INSTRUCTIONS: Seek medical attention if you have: * temperature above 101 * chest pain or trouble breathing * abdominal pain, nausea, vomiting * diarrhea, dark stools or bloody stools * any unanswered questions or concerns Call 911 if symptoms are severe. Please take good care of yourself. It has been a pleasure taking care of you. Please take care of yourself. If you have any questions regarding your recent hospitalization please contact [facility] and request Gonzalez Russoist @ [phone]. Pending Studies at Discharge: No Stand-Alone Forms: My [facility], Smoking Cessation Medications and DC Order Prescriptions: New Advanced Probiotic 625 mg (10 billion cell) Capsule 1 cap PO DAILY Qty: 30 0RF Continued levothyroxine 125 mcg Tablet 125 mcg PO DAILY Qty: 0 olopatadine 0.1 % Drops 1 drp OPB UD PRN (Reason: Dry Eyes) Qty: 0 Rx Instructions: 07/17-otc/no fill history unable to verify omeprazole 20 mg capsule,delayed release(DR/EC) 20 mg PO DAILY Rx Instructions: last filled 04/06/23 90 day supply montelukast 10 mg tablet 10 mg PO DAILY Changed cephalexin 500 mg capsule 500 mg PO BID 4 Days Qty: 8 0RF Admission Data Admit Date/Time: 07/17/24 15:11 Attending Provider: Migdalia Alvarez Admit Provider: Migdalia Alvarez Primary Care Provider: Valorie Fowler Other Providers: Migdalia Alvarez; Aric Pickett Supervising Physician Co-Signing Physician Notes Attending addendum The patient was seen and examined in medical floor She has been feeling much better today and seems to be mentally lot clear Denies any significant symptoms 07/12/2024 The patient was seen and examined in medical floor She has been feeling much better and seems to be at her baseline Denies any symptoms except noted to have incontinence of bowel this morning Has had physical therapy and recommended she can go back On examination Lying in bed without any apparent distress Remains hemodynamically stable Physical examination remains unremarkable Her labs and medications reviewed Has Citrobacter Koseri UTI which is pansensitive and she will be discharged on oral Keflex to finish the course of 7 days in total Her confusion with history of mild intellectual impairment has improved a lot Agree with assessment and plan as outlined above by KRAIG Hill and take the full responsibility of care in the hospital Total time taken to document all this was [address] Carey Alvarez
== END 2024-07-20 16:51 | disposition home or self-care (01) | DRG 690 ==
LOC: ED 12:40 → EDINP 15:11 → SUATTDRO 15:11 → 3W 17:34

== ENCOUNTER 2024-07-21 12:22 | Inpatient (IN) ==
--- NOTE | 2024-07-21 13:26 | Emergency Department Note ---
History of Present Illness General Chief complaint: Altered Mental Status Stated complaint: ALTERED MENTAL STATUS, HALLUCINATIONS Time Seen by Provider: 07/21/24 13:13 History of Present Illness This is a 63-year-old female who presents to the emergency department via private vehicle accompanied by 3 [employer] employees with complaints of "altered mental status, hallucinations". Majority of history obtained from [facility] employees at bedside. They note that the patient does live independently, alone. The [facility] does provide some services for the patient. Normally she is able to care for herself. However as of recent they note alteration in her mental status. She seems more confused. They note that today she did not know the present was, was confused about her pet, and did not know her birthdate. They also note auditory hallucinations. She went to picker/puller the antibiotics that was prescribed at time of discharge yesterday, however ran out of the store which is very unusual for her. She has been crying/emotionally labile. Staff at bedside is concerned about this change in her mental status and notes it has been ongoing now for about a week. No reported fevers but do note that she is currently on oral cephalexin for treatment of UTI. She had 1 dose thus far. [facility] employees at bedside note that the patient did stay at her brother's house last evening more from a safety standpoint as she had altered mental status, and they note that her brother was in agreement to have the patient present today for further evaluation and management. Home Medications Medication Instructions Recorded Confirmed Type levothyroxine 125 mcg tablet 125 mcg PO DAILY #0 tabs 04/15/13 07/21/24 History montelukast 10 mg tablet 10 mg PO DAILY 07/16/24 07/21/24 History omeprazole 20 mg capsule,delayed 20 mg PO DAILY 07/16/24 07/21/24 History release L.acidop,casei,lactis,rham-B.lact,moriah 1 cap PO DAILY #30 caps 07/20/24 07/21/24 Rx 625 mg (10 billion cell) capsule (Advanced Probiotic) cephalexin 500 mg capsule 500 mg PO BID 4 days #8 caps 07/20/24 07/21/24 Rx Allergies Allergy/AdvReac Type Severity Reaction Status Date / Time No Known Allergies Allergy Verified 07/21/24 15:11 Past Med/Surg History Problem List (Updated 07/21/24 @ 15:54 by KRAIG Angulo) History of UTI Altered mental status (Acute) Confusion (Acute) Medical History (Updated 07/21/24 @ 15:54 by KRAIG Angulo) Allergic rhinitis GERD (gastroesophageal reflux disease) Hypothyroidism Surgical History (Updated 07/21/24 @ 15:52 by KRAIG Angulo) No pertinent past surgical history Social History Smoking Status: Never smoker Tobacco Type: Declines Second Hand Exposure: No; Do You Dip or Chew Tobacco: No; Hx Alcohol Use: No Hx Substance Use: No Preferred Language: Bulgarian Communication Ability: Effective Fire Prevention Inspector Required: No Beliefs That Will Affect Care: None Current Living Situation: Alone Feels Safe at Home: Yes Assistive Devices: None Review of Systems A total of 10 systems reviewed and were otherwise negative Physical Exam Vital Signs Vital Signs - 24 hr 07/21/24 12:25 07/21/24 13:36 07/21/24 15:06 Temperature 36.7 C Temperature Source Temporal Artery Scan Pulse Rate 80 71 Pulse Rate [Apical] Pulse Rhythm Regular Pulse Rhythm [Apical] Pulse Strength Normal Respiratory Rate 20 Respiratory Effort / Characteristics Non-Labored Spontaneous Respiratory Depth Normal Respiratory Pattern Blood Pressure 125/82 Blood Pressure [Right Arm] Blood Pressure Mean 96 Blood Pressure Mean [Right Arm] Blood Pressure Position Sitting Blood Pressure Position [Right Arm] Pulse Oximetry 99 98 Oxygen Delivery Method Room Air Room Air Sepsis Recent Fever Within 48 Hours No Sepsis New/Unexplained Change in Mental Status N/A Sepsis Action Taken by Nursing No Action Required 07/21/24 15:06 Temperature Temperature Source Pulse Rate Pulse Rate [Apical] 63 Pulse Rhythm Pulse Rhythm [Apical] Regular Pulse Strength Respiratory Rate 18 Respiratory Effort / Characteristics Non-Labored Spontaneous Respiratory Depth Normal Respiratory Pattern Regular Blood Pressure Blood Pressure [Right Arm] 114/66 Blood Pressure Mean Blood Pressure Mean [Right Arm] 82 Blood Pressure Position Blood Pressure Position [Right Arm] Lying Pulse Oximetry 100 Oxygen Delivery Method Room Air Sepsis Recent Fever Within 48 Hours Sepsis New/Unexplained Change in Mental Status Sepsis Action Taken by Nursing VITAL SIGNS - Vital signs and nursing notes were reviewed. Stable and afebrile. GENERAL -[id number]-year-old female appearing her stated age who is in no acute distress. Communicates well with provider and answers questions appropriately. Patient is quite quiet in the exam room, has the eyes closed and unless I say her name, she does not respond to my questions. However, when I say her name and then asked the question she will respond. She is able to tell me her birthdate, where she is located today and her name. SKIN - Without rashes. No meningeal or petechial rash. HEAD - NC/AT. EYES - PERRL with EOMI bilaterally. Sclera anicteric. EARS - No deformities of external structures noted on gross examination bilaterally. External auditory canals without discharge or otorrhea. Tympanic membranes pearly harrell without retraction or bulging. No fluid or purulent material visualized behind the TM. Handle of malleus, umbo, cone of light, pars tensa/flaccid all easily visualized. NOSE - Midline and without cyanosis. No epistaxis or purulent drainage noted. Septum midline without deviation or septal hematoma noted. MOUTH/OROPHARYNX - Without perioral cyanosis. Buccal mucosa pink and moist and without leukoplakia. Tongue midline with equal elevation of palate bilaterally. No tonsillar hypertrophy, erythema, or exudates noted. Good dentition noted. NECK - Neck with FROM. Supple to palpation. No lymphadenopathy noted. No nuchal rigidity. LUNGS - Chest wall symmetric without accessory muscle use, intercostals retractions, or central cyanosis. Normal vesicular breath sounds CTA B/L. No wheezes, rales, or rhonchi appreciated. CARDIAC - RRR ABDOMEN - Abdominal contour normal without pulsations or visible masses. BS normoactive all four quadrants. No tenderness, palpable masses, hepatosplenomegaly, or ascites noted. EXTREMITIES - No clubbing or peripheral cyanosis. +5/5 strength noted in UE/LE bilaterally. NEUROLOGIC - Cranial nerves II through XII grossly intact. PSYCH -patient overall quiet, but is alert and somewhat oriented Course Administered Medications Discontinued Medications Ceftriaxone Sodium (Rocephin) 2,000 mg in 50 mls @ 100 mls/hr IV NOW STA Stop: 07/21/24 15:18 Last Infusion: 07/21/24 15:46 Dose: Infused Documented By: Admin: 07/21/24 15:11 Dose: 100 mls/hr Documented By: GUILLE Medical Decision Making Laboratory Data 07/21/24 13:20 07/21/24 13:20 Lab Results 07/21/24 07/21/2425 Range/Units 13:20 13:48 14:27 WBC 8.75 (4.8-10.8) K/ul RBC 5.05 (4.20-5.40) M/uL Hgb 14.8 (12.0-16.0) g/dl Hct 43.3 (37.0-47.0) % MCV 85.7 (80.0-100.0) fL MCH 29.3 (25.0-34.0) pg MCHC 34.2 (32.0-36.0) g/dL RDW Std Deviation 41.6 (36.4-46.3) fL RDW Coeff of Yann 13.5 (11.5-14.5) % Plt Count 290 (130-400) K/uL MPV 9.9 (9.4-12.4) fL Immature Gran % (Auto) 0.3 % Neut % (Auto) 72.2 % Lymph % (Auto) 15.7 % [place] % (Auto) 8.1 % Eos % (Auto) 2.9 % Baso % (Auto) 0.8 % Neut # (Auto) 6.32 (1.40-6.50) K/uL Lymph # (Auto) 1.37 (1.20-3.40) K/uL [place] # (Auto) 0.71 H (0.11-0.59) K/uL Eos # (Auto) 0.25 (0.00-0.50) K/uL Baso # (Auto) 0.07 (0.00-0.20) K/uL Immature Gran # (Auto) 0.03 (0.01-0.20) K/uL PT 10.4 (9.0-12.0) Seconds INR 1.0 (0.9-1.1) APTT 26 (21-31) Seconds PTT Ratio 1.0 Sodium 139 (136-145) mmol/L Potassium 3.8 (3.5-5.1) mmol/L Chloride 104 (98-107) mmol/L Carbon Dioxide 27 (21-32) mmol/L Anion Gap 8 (3-11) BUN 16 (6-23) mg/dl Creatinine 0.79 (0.6-1.2) mg/dl Est Cr Clr Drug Dosing 71.5 ml/min eGFR 85.05 BUN/Creatinine Ratio 20.3 H (10-20) Glucose 85 (70-99(Fasting)) mg/dl Lactate 1.1 (0.4-2.0) mmol/L Calcium 9.3 (8.6-10.3) mg/dl Magnesium 2.1 (1.7-2.4) mg/dl Total Bilirubin 0.4 (0.2-1.0) mg/dl AST 13 (13-39) U/L ALT 12 (7-52) U/L Alkaline Phosphatase 85 (34-104) U/L Troponin I High Sens 2.8 (0-14) pg/ml Total Protein 7.2 (6.0-8.3) gm/dl Albumin 4.3 (3.4-5.0) gm/dl Globulin 2.9 (2.5-4.0) gm/dl Albumin/Globulin Ratio 1.5 (0.9-2) Procalcitonin 0.02 (0-0.5) ng/ml TSH 17.437 H (0.300-4.500) uIu/ml Free T4 1.15 (0.61-1.60) ng/dl Adenovirus (PCR) (NotDetected) B. pertussis DNA (PCR) (NotDetected) B.parapertussis DNA PCR (NotDetected) Lyme Disease Screen Positive H (Negative) Lyme Tier 2 IgG Confirm Negative (Negative) Lyme Tier 2 IgM Confirm Negative (Negative) C. pneumoniae DNA (PCR) (NotDetected) Coronavirus OC43 (PCR) (NotDetected) Coronavirus HKU1 (PCR) (NotDetected) Coronavirus 229E (PCR) (NotDetected) SARS-CoV-2 (PCR) (NotDetected) Coronavirus NL63 (PCR) (NotDetected) Human Metapneumovir PCR (NotDetected) Influenza Type A (PCR) (NotDetected) Influenza Type B (PCR) (NotDetected) M. pneumoniae (PCR) (NotDetected) Parainfluenza 1 (PCR) (NotDetected) Parainfluenza 2 (PCR) (NotDetected) Parainfluenza 3 (PCR) (NotDetected) Parainfluenza 4 (PCR) (NotDetected) RSV (PCR) (NotDetected) Entero/Rhino (PCR) (NotDetected) 07/21/24 Range/Units 15:13 WBC (4.8-10.8) K/ul RBC (4.20-5.40) M/uL Hgb (12.0-16.0) g/dl Hct (37.0-47.0) % MCV (80.0-100.0) fL MCH (25.0-34.0) pg MCHC (32.0-36.0) g/dL RDW Std Deviation (36.4-46.3) fL RDW Coeff of Yann (11.5-14.5) % Plt Count (130-400) K/uL MPV (9.4-12.4) fL Immature Gran % (Auto) % Neut % (Auto) % Lymph % (Auto) % [place] % (Auto) % Eos % (Auto) % Baso % (Auto) % Neut # (Auto) (1.40-6.50) K/uL Lymph # (Auto) (1.20-3.40) K/uL [place] # (Auto) (0.11-0.59) K/uL Eos # (Auto) (0.00-0.50) K/uL Baso # (Auto) (0.00-0.20) K/uL Immature Gran # (Auto) (0.01-0.20) K/uL PT (9.0-12.0) Seconds INR (0.9-1.1) APTT (21-31) Seconds PTT Ratio Sodium (136-145) mmol/L Potassium (3.5-5.1) mmol/L Chloride (98-107) mmol/L Carbon Dioxide (21-32) mmol/L Anion Gap (3-11) BUN (6-23) mg/dl Creatinine (0.6-1.2) mg/dl Est Cr Clr Drug Dosing ml/min eGFR BUN/Creatinine Ratio (10-20) Glucose (70-99(Fasting)) mg/dl Lactate (0.4-2.0) mmol/L Calcium (8.6-10.3) mg/dl Magnesium (1.7-2.4) mg/dl Total Bilirubin (0.2-1.0) mg/dl AST (13-39) U/L ALT (7-52) U/L Alkaline Phosphatase (34-104) U/L Troponin I High Sens (0-14) pg/ml Total Protein (6.0-8.3) gm/dl Albumin (3.4-5.0) gm/dl Globulin (2.5-4.0) gm/dl Albumin/Globulin Ratio (0.9-2) Procalcitonin (0-0.5) ng/ml TSH (0.300-4.500) uIu/ml Free T4 (0.61-1.60) ng/dl Adenovirus (PCR) Not Detected (NotDetected) B. pertussis DNA (PCR) Not Detected (NotDetected) B.parapertussis DNA PCR Not Detected (NotDetected) Lyme Disease Screen (Negative) Lyme Tier 2 IgG Confirm (Negative) Lyme Tier 2 IgM Confirm (Negative) C. pneumoniae DNA (PCR) Not Detected (NotDetected) Coronavirus OC43 (PCR) Not Detected (NotDetected) Coronavirus HKU1 (PCR) Not Detected (NotDetected) Coronavirus 229E (PCR) Not Detected (NotDetected) SARS-CoV-2 (PCR) Not Detected (NotDetected) Coronavirus NL63 (PCR) Not Detected (NotDetected) Human Metapneumovir PCR Not Detected (NotDetected) Influenza Type A (PCR) Not Detected (NotDetected) Influenza Type B (PCR) Not Detected (NotDetected) M. pneumoniae (PCR) Not Detected (NotDetected) Parainfluenza 1 (PCR) Not Detected (NotDetected) Parainfluenza 2 (PCR) Not Detected (NotDetected) Parainfluenza 3 (PCR) Not Detected (NotDetected) Parainfluenza 4 (PCR) Not Detected (NotDetected) RSV (PCR) Not Detected (NotDetected) Entero/Rhino (PCR) Not Detected (NotDetected) Imaging Data Radiologist's Impression: Chest X-Ray 07/21/24 13:22 XR chest 1V portable CLINICAL HISTORY: altered mental status COMPARISON STUDY: Chest radiograph April 15, 2013. FINDINGS: Lung volumes are unchanged. There is no pneumothorax or pleural effusion opacity at the right cardiophrenic angle is likely due to epicardial fat pad.. Cardiomegaly is unchanged. There is no evidence for overt pulmonary edema. IMPRESSION: Hypoventilatory study. Low lung findings, unchanged. No definite acute cardiopulmonary findings. ACT 112: Negative or not required by law. Electronically signed by: Sanford Menon M.D. 07/21/2024 2:[address] 07/21/24 13:22 CT SCAN OF THE BRAIN WITHOUT IV CONTRAST CLINICAL HISTORY: Altered mental status. COMPARISON STUDY: Head CT July 17, 2024. TECHNIQUE: Unenhanced axial CT scan of the brain was performed from the vertex to the skull base. A dose lowering technique was utilized adhering to the principles of ALARA. CT DOSE: 625.8 mGy.cm FINDINGS: Brain parenchyma: No acute intracranial hemorrhage, midline shift or mass effect is present. Harrell-white matter differentiation is preserved. There are no extra- axial fluid collections. There are no findings to suggest acute dural sinus thrombosis or acute territorial infarct. White matter hypodensities suggest mild small vessel disease. Ventricles, sulci, cisterns: There is no hydrocephalus. The basal cisterns are patent. Calvarium: Unremarkable. Sinuses and mastoids: The visualized paranasal sinuses are clear. The mastoid air cells are well pneumatized. Orbits: The bony orbits are grossly intact. IMPRESSION: No acute intracranial findings. ACT 112: Negative or not required by law. Electronically signed by: Sanford Menon M.D. 07/21/2024 2:13 PM MDM Narrative Patient was seen and evaluated as above in room B06. Review was performed of triage nursing notes and vital signs. I did review pertinent previous visits and patient history. After obtaining a thorough history and physical examination the above work up was performed. Patient presents to us today for continuation of altered mental status. She is accompanied by 3 [employer] [employer] employees. On my examination she does answer questions but only if I say her name first. She will move her head in all directions. No nuchal rigidity. There is no fever. No focal neurologic deficit. No extremity weakness. EKG per my interpretation reveals normal sinus rhythm at a rate of 66 bpm. QTc 413. QRS 66. No ST elevation Options of care were discussed with the patient/ [facility] employees at bedside. IV access was established. Labs were drawn. No leukocytosis or concerning anemia. No emergent metabolic disturbance. Lyme screen positive. TSH elevated with free T4 pending. Procalcitonin detectable but within normal range at 0.02. Lactate is within normal range. IV ceftriaxone was ordered for coverage of Lyme plus suspected UTI noted on previous visit. I do believe that further evaluation and management in the inpatient setting is warranted. Case discussed with the hospitalist service. Please refer to further documentation regarding her stay. GCS: 15 In the evaluation and treatment of this patient the following differential diagnoses were entertained: UTI, bacteremia, sepsis, meningitis, encephalitis, electrolyte disturbance, CVA/TIA, among others Impression & Plan Altered mental status Discharge Plan Visit Data Chief Complaint: Altered Mental Status Stated Complaint: ALTERED MENTAL STATUS, HALLUCINATIONS ED Provider: Francy Rivas ED Midlevel Provider: Rj Villasenor Discharge Problem: Altered mental status Patient Disposition: Admitted As Inpatient Condition: Good Forms Stand Alone Forms: My [facility] [place] [facility] Prescriptions Prescriptions: No Action levothyroxine 125 mcg Tablet 125 mcg PO DAILY Qty: 0 omeprazole 20 mg capsule,delayed release(DR/EC) 20 mg PO DAILY montelukast 10 mg tablet 10 mg PO DAILY Advanced Probiotic 625 mg (10 billion cell) Capsule 1 cap PO DAILY Qty: 30 0RF Rx Instructions: NEVER STARTED PER FAMILY cephalexin 500 mg capsule 500 mg PO BID 4 Days Qty: 8 0RF Rx Instructions: STARTED 07/20/24 FOR 4 DAYS Referrals Referrals: Valorie Fowler CRNP [Primary Care Provider] -
[2024-07-21 13:36] LABS: Basophils # (auto) 0.07 K/uL (0.00-0.20); Basophils % (auto) 0.8 %; Eosinophils # (auto) 0.25 K/uL (0.00-0.50); Eosinophils % (auto) 2.9 %; Hematocrit (blood only) 43.3 % (37.0-47.0); Hemoglobin 14.8 g/dl (12.0-16.0); Immature Granulocytes # (auto) 0.03 K/uL (0.01-0.20); Immature Granulocytes % (auto) 0.3 %; Lymphocytes # (auto) 1.37 K/uL (1.20-3.40); Lymphocytes % (auto) 15.7 %; Mean Corpuscular Hemoglobin 29.3 pg (25.0-34.0); Mean Corpuscular Hgb Conc 34.2 g/dL (32.0-36.0); Mean Corpuscular Volume 85.7 fL (80.0-100.0); Mean Platelet Volume 9.9 fL (9.4-12.4); Monocytes # (auto) 0.71 K/uL (0.11-0.59); Monocytes % (auto) 8.1 %; Neutrophils # (auto) 6.32 K/uL (1.40-6.50); Neutrophils % (auto) 72.2 %; Platelet Count 290 K/uL (130-400); RDW Coefficient of Variation 13.5 % (11.5-14.5); RDW Standard Deviation 41.6 fL (36.4-46.3); Red Blood Count 5.05 M/uL (4.20-5.40); White Blood Count 8.75 K/ul (4.8-10.8)
[2024-07-21 13:59] LABS: Procalcitonin 0.02 ng/ml (0-0.5)
--- NOTE | 2024-07-21 14:14 | CT Scan Report ---
CT SCAN OF THE BRAIN WITHOUT IV CONTRAST CLINICAL HISTORY: Altered mental status. COMPARISON STUDY: Head CT July 17, 2024. TECHNIQUE: Unenhanced axial CT scan of the brain was performed from the vertex to the skull base. A dose lowering technique was utilized adhering to the principles of ALARA. CT DOSE: 625.8 mGy.cm FINDINGS: Brain parenchyma: No acute intracranial hemorrhage, midline shift or mass effect is present. Harrell-whi te matter differentiation is preserved. There are no extra-axial fluid collections. There are no find ings to suggest acute dural sinus thrombosis or acute territorial infarct. White matter hypodensities suggest mild small vessel disease. Ventricles, sulci, cisterns: There is no hydrocephalus. The basal cisterns are patent. Calvarium: Unremarkable. Sinuses and mastoids: The visualized paranasal sinuses are clear. The mastoid air cells are well pneu matized. Orbits: The bony orbits are grossly intact. IMPRESSION: No acute intracranial findings. ACT 112: Negative or not required by law. Electronically signed by: Sanford Menon M.D. 07/21/2024 2:13 PM
[2024-07-21 14:24] LABS: Lyme Screen Rflx Confirmation Positive (Negative)
[2024-07-21 14:36] LABS: Albumin Level 4.3 gm/dl (3.4-5.0); Bilirubin,Total 0.4 mg/dl (0.2-1.0); Calcium 9.3 mg/dl (8.6-10.3); Magnesium 2.1 mg/dl (1.7-2.4); Potassium 3.8 mmol/L (3.5-5.1)
--- NOTE | 2024-07-21 14:39 | XRay Report ---
XR chest 1V portable CLINICAL HISTORY: altered mental status COMPARISON STUDY: Chest radiograph April 15, 2013. FINDINGS: Lung volumes are unchanged. There is no pneumothorax or pleural effusion opacity at the rig ht cardiophrenic angle is likely due to epicardial fat pad.. Cardiomegaly is unchanged. There is no e vidence for overt pulmonary edema. IMPRESSION: Hypoventilatory study. Low lung findings, unchanged. No definite acute cardiopulmonary fi ndings. ACT 112: Negative or not required by law. Electronically signed by: Sanford Menon M.D. 07/21/2024 2:38 PM
[2024-07-21 14:40] LABS: Troponin I High Sensitivity 2.8 pg/ml (0-14)
[2024-07-21 14:42] LABS: Albumin Globulin Ratio 1.5 (0.9-2); BUN Creatinine Ratio 20.3 (10-20); Creatinine Clr Calc Pharmacy 71.5 ml/min; Globulin 2.9 gm/dl (2.5-4.0); Total Protein 7.2 gm/dl (6.0-8.3)
[2024-07-21 14:49] LABS: Thyroid Stimulating Hormone 17.437 uIu/ml (0.300-4.500)
[2024-07-21] MEDS: cefTRIAXone SODIUM 2,000 MG/50 ML BAG IV STA (15:11)
[2024-07-21 15:13] LABS: Lyme Ab IgG 2nd Tier Confirm Negative (Negative)
[2024-07-21 15:14] LABS: Lyme Ab IgM 2nd Tier Confirm Negative (Negative)
[2024-07-21 15:14] LABS: Partial Thromboplastin Time 26 Seconds (21-31); Prothrombin Time 10.4 Seconds (9.0-12.0)
[2024-07-21 15:22] LABS: T4 Free Thyroxine 1.15 ng/dl (0.61-1.60)
--- NOTE | 2024-07-21 16:07 | History & Physical Report ---
Date of Service July 21, 2024 Assessment & Plan (1) History of UTI: (2) Altered mental status: (3) Confusion: Plan: Admit to med/surg with tele Patient presenting from home for evaluation of altered mental status. Patient recently admitted to [facility] 07/17 - 07/20 for UTI. Urine culture grew pansensitive Citrobacter. Patient received IV ceftriaxone while admitted and was discharged on a course of cephalexin. Patient returning for evaluation of altered mental status including confusion and hallucinations. Etiology not entirely clear however may be due to ongoing delirium from recent UTI Lyme screen positive however IgG and IgM negative TSH is 17.4 however with normal free T4 Head CT negative for acute findings IV ceftriaxone for continued treatment of UTI Psychiatry consult due to hallucinations. Noted no prior psych history. 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 At baseline, patient is fairly independent and lives alone in an apartment. (4) Hypothyroidism: Plan: TSH 14 with normal free T4 Continue [employer] levothyroxine (5) GERD (gastroesophageal reflux disease): Plan: Continue [employer] PPI (6) Allergic rhinitis: Plan: Continue [employer] Singulair DVT PROPHYLAXIS SQ Lovenox Patient seen in collaboration with Dr. Pickett. I spent a total of 75 minutes coordinating, documenting, and providing care for this patient excluding time spent in the performance of separately billed services. This included personally reviewing all current laboratories and imaging studies, medication reconciliation, outpatient chart review, and discussion with specialists. History of Present Illness Chief Complaint: Altered mental status Primary Care Provider: KRAIG Floyd 63-year-old female with PMH mild intellectual disability, hypothyroidism, GERD, allergic rhinitis, and other problem listed below who presents to the ED for evaluation of altered mental status. Patient recently admitted to [facility] 07/17 through 07/20 for UTI. Urine culture grew pansensitive Citrobacter. Patient received IV ceftriaxone while admitted and was discharged on a course of cephalexin. Patient receives services through the [facility]. 4 staff members are present at the bedside along with patient's brother. Staff members report that patient was not at her previous baseline at the time she was discharged from the hospital yesterday. Patient was taken to [facility] [employer] to picking tech her prescriptions and was having auditory hallucinations of sirens and stated that the police were coming to get her. There were several attempts to take the patient into [facility] [employer] to picking tech her prescriptions however she kept running out of the store. Patient stayed at her brother's house last night and he said that throughout the night she was saying there were people outside in his yard. When patient was taken back to her apartment, she did not recognize her cat which is very unusual for her. At baseline, patient is fairly independent in her apartment living alone. She receives about 20 hours/week of support from [facility], mostly for transportation to appointments and shopping. At the time of my exam, patient is resting in bed. She is able to identify all [facility] staff members and her brother who are at the bedside. She states that she is at [facility] however is unsure of why she is here. Patient complains of left knee pain which has been present for some time. Staff state that they have noticed some increased difficulty walking over the past couple of weeks. Patient is hemodynamically stable And without leukocytosis. Lyme screen is positive however IgG and IgM are negative. TSH 17.4 with normal free T4 1.15. Head CT unremarkable for acute findings. Patient was given IV ceftriaxone. Allergies Allergy/AdvReac Type Severity Reaction Status Date / Time No Known Allergies Allergy Verified 07/21/24 15:11 Home Medications Medication Instructions Recorded Confirmed Type levothyroxine 125 mcg tablet 125 mcg PO DAILY #0 tabs 04/15/13 07/21/24 History montelukast 10 mg tablet 10 mg PO DAILY 07/16/24 07/21/24 History omeprazole 20 mg capsule,delayed 20 mg PO DAILY 07/16/24 07/21/24 History release L.acidop,casei,lactis,rham-B.lact,moriah 1 cap PO DAILY #30 caps 07/20/24 07/21/24 Rx 625 mg (10 billion cell) capsule (Advanced Probiotic) cephalexin 500 mg capsule 500 mg PO BID 4 days #8 caps 07/20/24 07/21/24 Rx Past Med/Surg History Problem List (Updated 07/21/24 @ 15:54 by KRAIG Angulo) History of UTI Altered mental status (Acute) Confusion (Acute) Medical History (Updated 07/21/24 @ 15:54 by KRAIG Angulo) Allergic rhinitis GERD (gastroesophageal reflux disease) Hypothyroidism Surgical History (Updated 07/21/24 @ 15:52 by KRAIG Angulo) No pertinent past surgical history Social History Smoking Status: Never smoker Tobacco Type: Declines Second Hand Exposure: No; Do You Dip or Chew Tobacco: No; Hx Alcohol Use: No Hx Substance Use: No Preferred Language: Romansh Communication Ability: Effective Family Services Assistant Required: No Beliefs That Will Affect Care: None Current Living Situation: Alone Current Living Situation Comment: [facility] helps at home Other Information That Helps Us Care for You: No Feels Safe at Home: Yes Safety Concerns: Feels Safe At This Time Assistive Devices: Glasses Review of Systems Review of Systems: ROS per HPI, all other systems reviewed and negative Physical Exam Constitutional: WD/WN, vitals as above no acute distress ENMT: external ear and nose normal, oropharynx normal Respiratory: normal respiratory effort, lungs clear to auscultation Cardiovascular: Rate/Rhythm: regular rate and regular rhythm Vessels: normal peripheral pulses Extremities: no edema Gastrointestinal (Abdomen): normal bowel sounds, soft, nontender, no hepatosplenomegaly Skin: no rashes, warm and dry Neurologic: no focal motor deficits Psychiatric: Orientation: alert, oriented to person and oriented to place follows commands but does not seem to be oriented to situation Results & Data Results & Data Vital Signs (Past 12 Hours) Vital Signs Temp Pulse Pulse Resp BP BP Pulse Ox 07/21/24 15:06 63 18 114/66 100 07/21/24 15:06 98 07/21/24 13:36 71 07/21/24 12:25 36.7 C 80 20 125/82 99 O2 Del Method 07/21/24 15:06 Room Air 07/21/24 15:06 Room Air 07/21/24 13:36 07/21/24 12:25 Room Air Laboratory Results Short CBC 07/21/24 Range/Units 13:20 WBC 8.75 (4.8-10.8) K/ul Hgb 14.8 (12.0-16.0) g/dl Hct 43.3 (37.0-47.0) % Plt Count 290 (130-400) K/uL BMP 07/21/24 13:20 Sodium 139 Potassium 3.8 Chloride 104 Carbon Dioxide 27 BUN 16 Creatinine 0.79 Glucose 85 Calcium 9.3 Liver Function 07/21/24 Range/Units 13:20 Total Bilirubin 0.4 (0.2-1.0) mg/dl AST 13 (13-39) U/L ALT 12 (7-52) U/L Alkaline Phosphatase 85 (34-104) U/L Albumin 4.3 (3.4-5.0) gm/dl Diagnostic Findings Short CBC 07/21/24 Range/Units 13:20 WBC 8.75 (4.8-10.8) K/ul Hgb 14.8 (12.0-16.0) g/dl Hct 43.3 (37.0-47.0) % Plt Count 290 (130-400) K/uL BMP 07/21/24 13:20 Sodium 139 Potassium 3.8 Chloride 104 Carbon Dioxide 27 BUN 16 Creatinine 0.79 Glucose 85 Calcium 9.3 Liver Function 07/21/24 Range/Units 13:20 Total Bilirubin 0.4 (0.2-1.0) mg/dl AST 13 (13-39) U/L ALT 12 (7-52) U/L Alkaline Phosphatase 85 (34-104) U/L Albumin 4.3 (3.4-5.0) gm/dl Supervising Physician Co-Signing Physician Notes Patient seen and examined independently. Discussed with above provider. Patient presents to the hospital with concern for altered mentation; recently hospitalized for UTI. Will continue treatment for UTI with ceftriaxone. Continue ceftriaxone; psychiatry consulted for hallucinations. Delirium precautions. I have reviewed the advanced practitioner's documentation, and I agree with, and take responsibility for the plan of care I spent a total of 30 minutes coordinating, documenting, and providing care for this patient excluding time spent in the performance of separately billed services. All of the aforementioned completed while collaborating with the assigned advanced practitioner for a full treatment plan (4) Hypothyroidism Hypothyroidism type: unspecified Qualified Code(s): E03.9 - Hypothyroidism, unspecified
[2024-07-21 16:09] LABS: Adenovirus PCR Not Detected (NotDetected); Bordetella parapertussis PCR Not Detected (NotDetected); Bordetella pertussis PCR Not Detected (NotDetected); Chlamydia pneumoniae PCR Not Detected (NotDetected); Coronavirus 229E PCR Not Detected (NotDetected); Coronavirus CoV-2 (COVID19)PCR Not Detected (NotDetected); Coronavirus HKU1 PCR Not Detected (NotDetected); Coronavirus NL63 PCR Not Detected (NotDetected); Coronavirus OC43PCR Not Detected (NotDetected); Human Metapneumovirus PCR Not Detected (NotDetected); Influenza A PCR Not Detected (NotDetected); Influenza B PCR Not Detected (NotDetected); Mycoplasma pneumoniae PCR Not Detected (NotDetected); Parainfluenza Virus 1 PCR Not Detected (NotDetected); Parainfluenza Virus 2 PCR Not Detected (NotDetected); Parainfluenza Virus 3 PCR Not Detected (NotDetected); Parainfluenza Virus 4 PCR Not Detected (NotDetected); Respiratory Syncytial VirusPCR Not Detected (NotDetected); Rhinovirus/Enterovirus PCR Not Detected (NotDetected)
[2024-07-21] MEDS: ENOXAPARIN INJ 40 MG/0.4 ML SYR SQ SCH (20:55)
[2024-07-22] MEDS: LEVOTHYROXINE SODIUM 125 MCG TABLET PO SCH (05:38)
[2024-07-22 06:13] LABS: Appearance Urine Clear (Clear); Bilirubin Urine Negative (Negative); Blood Urine Negative (Negative); Color Urine Yellow; Glucose Urine UA Negative (Negative); Ketones Urine Negative (Negative); Leukocyte Esterase Urine Negative (Negative); Nitrite Urine Negative (Negative); Protein Urine Negative (Negative); Specific Gravity Urine 1.011 (1.000-1.030); Urobilinogen Urine Negative (Negative); pH Urine 5.5 (4.5-7.5)
[2024-07-22 07:17] LABS: Amphetamines+Metham, Urine Neg (Neg); Barbiturates, Urine Neg (Neg); Benzodiazepine, Urine Neg (Neg); Cocaine, Urine Neg (Neg); Fentanyl, Urine Neg (Neg); MDMA (Ecstacy), Urine Neg (Neg); Marijuana, Urine Neg (Neg); Methadone, Urine Neg (Neg); Opiate, Urine Neg (Neg); Phencyclidine, Urine Neg (Neg)
[2024-07-22] MEDS: MONTELUKAST SODIUM 10 MG TABLET PO SCH (08:55)
[2024-07-22] MEDS: PANTOprazole 40 MG TAB PO SCH (08:55)
[2024-07-22 09:13] LABS: Hematocrit (blood only) 42.7 % (37.0-47.0); Hemoglobin 14.5 g/dl (12.0-16.0); Mean Corpuscular Hemoglobin 29.7 pg (25.0-34.0); Mean Corpuscular Volume 87.3 fL (80.0-100.0); Mean Platelet Volume 9.7 fL (9.4-12.4); Platelet Count 271 K/uL (130-400); RDW Coefficient of Variation 13.5 % (11.5-14.5); RDW Standard Deviation 42.5 fL (36.4-46.3); Red Blood Count 4.89 M/uL (4.20-5.40); White Blood Count 7.01 K/ul (4.8-10.8)
[2024-07-22 09:31] LABS: BUN Creatinine Ratio 20.9 (10-20); Calcium 9.1 mg/dl (8.6-10.3); Creatinine Clr Calc Pharmacy 84.7 ml/min; Potassium 4.4 mmol/L (3.5-5.1)
--- NOTE | 2024-07-22 10:32 | Hospitalist Progress Note ---
Date of Service July 22, 2024 Assessment & Plan (1) Delirium due to another medical condition: (2) Hypothyroidism: (3) UTI (urinary tract infection): Plan: Completed treatment Plan Suspect patient is having acute delirium due to recent treatment of UTI, possibly antibiotics, possibly due to subtherapeutic treatment of her hypothyroidism with an increased TSH. Patient has completed a full course of antibiotics for her UTI, discontinue all antibiotics at this time Increase Synthroid dose, recheck TSH in approximate 4 to 6 weeks Discontinue telemetry Encourage activity and ambulation Continue to monitor mental status throughout the day Anticipated no recurrent hallucinations or delirium anticipate discharge tomorrow. Discontinue psych consultation, patient's hallucinations due to delirium associated with medical condition. Phone conversation with patient's brother, updated Admission and Anticipated Discharge Date Admission Date: July 21, 2024 Subjective No acute issues overnight. Nursing reports no signs that the patient is having hallucinations. Patient declined hallucinations this morning. Physical Exam Physical Exam: Constitutional: Alert HEENT: Mucous membranes moist. Lungs: Clear to auscultation, decreased, no wheezes rales or rhonchi CV: S1-S2, regular Abdomen: Soft, nontender, nondistended Extremities: No significant edema Neuro: No focal deficits, baseline deficits Psych: Cooperative, normal mood Results & Data Results & Data Vital Signs (Past 12 Hours) Vital Signs Temp Pulse Pulse Resp BP Pulse Ox O2 Del Method 07/22/24 07:29 36.4 C L 55 L 18 125/75 99 Room Air 07/22/24 04:31 36.4 C L 65 18 153/82 H 99 Room Air 07/21/24 23:26 36.6 C 68 18 149/84 H 97 Room Air Diagnostic Findings Reviewed imaging, laboratory and diagnostic studies. Pertinent findings as below. Glucose reviewed, 114 CBC BMP within normal ranges (2) Hypothyroidism Hypothyroidism type: unspecified Qualified Code(s): E03.9 - Hypothyroidism, unspecified
[2024-07-22] MEDS: ACETAMINOPHEN 325 MG TAB PO PRN (14:13)
[2024-07-22] MEDS ORDERED: cefTRIAXone SODIUM 1,000 MG/50 ML BAG IV SCH (15:00)
--- NOTE | 2024-07-22 22:44 | Electrocardiogram Report ---
Test Reason : Blood Pressure : */* mmHG Vent. Rate : 66 BPM Atrial Rate : 66 BPM P-R Int : 164 ms QRS Dur : 66 ms QT Int : 394 ms P-R-T Axes : 23 3 17 degrees QTcB Int : 413 ms Normal sinus rhythm Poor R wave progression, consider anterior AR vs. lead placement vs. LVH T wave abnormality, consider anterior ischemia Abnormal ECG When compared with ECG of 15-Apr-2013 15:25, T wave inversion now evident in Anterior leads Confirmed by Sinan Otero ([id number]) on 07/22/2024 10:44:16 PM Referred By: Confirmed By: Sinan Otero
[2024-07-23] MEDS: LEVOTHYROXINE SODIUM 150 MCG TABLET PO SCH (06:05)
--- NOTE | 2024-07-23 15:16 | Discharge Summary ---
Discharge Summary Date of Service July 23, 2024 Principal Dx & Hospital Course #1 = Principal Diagnosis (1) Delirium due to another medical condition: (2) Hypothyroidism: (3) UTI (urinary tract infection): Completed treatment Plan Patient 63-year-old female with known cognitive disability. Was just recently discharged from the hospital after being treated for UTI. During that hospitalization there was some delirium noted. She was discharged on Keflex. She was brought back to the hospital by her caregivers concerned that she was having ongoing delirium with reported hallucinations. Evaluation in the emergency room was unremarkable for significant laboratory or imaging findings. She was mated to the hospital for ongoing observation. She was given additional Rocephin in the ED. On review of her antibiotic treatment she has received at minimum 5 days of treatment for her UTI. This is more than adequate and subsequently all antibiotics were discontinued. There is concern that the antibiotic some cells may have been causing some of her delirium and confusion. Patient continued to be observed. Her TSH was elevated even though she had a normal free T4 concerned that may be undertreated hypothyroidism was contributing to her confusion and her dose was increased. Through the course of the rest of her hospitalization there was no reports of hallucinations. She seemed back to her usual mental status. And on the day of discharge patient felt that she was ready to return home. Staff reported no significant concerns or alterations in her mental status. Patient will be discharged home to resume her usual home care. Her brother was notified of the day of discharge of the plan of care. She will continue the higher dose Synthroid with recommendation of outpatient TSH monitoring through her PCP. Continue her other home care. Notes For Next Care Provider Recommend checking TSH in approximate 4 to 6 weeks Medication Changes From Visit Synthroid dose increased to 150 mcg Admission HPI Per Admitting Provider 63-year-old female with PMH mild intellectual disability, hypothyroidism, GERD, allergic rhinitis, and other problem listed below who presents to the ED for evaluation of altered mental status. Patient recently admitted to [facility] 07/17 through 07/20 for UTI. Urine culture grew pansensitive Citrobacter. Patient received IV ceftriaxone while admitted and was discharged on a course of cepha lexin. Patient receives services through the [facility]. 4 staff members are present at the bedside along with patient's brother. Staff members report that patient was not at her previous baseline at the time she was discharged from the hospital yesterday. Patient was taken to [facility] to crab picker her prescriptions and was having auditory hallucinations of sirens and stated that the police were coming to get her. There were several attempts to take the patient into [facility] to crab picker her prescriptions however she kept running out of the store. Patient stayed at her brother's house last night and he said that throughout the night she was saying there were people outside in his yard. When patient was taken back to her apartment, she did not recognize her cat which is very unusual for her. At baseline, patient is fairly independent in her apartment living alone. She receives about 20 hours/week of support from [facility], mostly for transportation to appointments and shopping. At the time of my exam, patient is resting in bed. She is able to identify all [facility] staff members and her brother who are at the bedside. She states that she is at [facility] however is unsure of why she is here. Patient complains of left knee pain which has been present for some time. Staff state that they have noticed some increased difficulty walking over the past couple of weeks. Patient is hemodynamically stable And without leukocytosis. Lyme screen is positive however IgG and IgM are negative. TSH 17.4 with normal free T4 1.15. Head CT unremarkable for acute findings. Patient was given IV ceftriaxone. Admission Exam Per Admitting Provider See H&P Discharge Exam Constitutional: Alert, nontoxic HEENT: Mucous membranes moist. Lungs: Clear to auscultation, decreased, no wheezes rales or rhonchi CV: S1-S2, regular Abdomen: Soft, nontender, nondistended Extremities: No significant edema Neuro: No focal deficits, Psych: Cooperative, normal mood, baseline cognitive abilities Updated Medication List Medication Instructions Recorded Confirmed Type levothyroxine 125 mcg tablet 125 mcg PO DAILY #0 tabs 04/15/13 07/21/24 History montelukast 10 mg tablet 10 mg PO DAILY 07/16/24 07/21/24 History omeprazole 20 mg capsule,delayed 20 mg PO DAILY 07/16/24 07/21/24 History release L.acidop,casei,lactis,rham-B.lact,moriah 1 cap PO DAILY #30 caps 07/20/24 07/21/24 Rx 625 mg (10 billion cell) capsule (Advanced Probiotic) cephalexin 500 mg capsule 500 mg PO BID 4 days #8 caps 07/20/24 07/21/24 Rx levothyroxine 150 mcg tablet 150 mcg PO DAILYBB #30 tabs 07/23/24 Rx (Synthroid) Hospital Stay Data Consultations 07/21/24 15:01 ED Decision to Admit Stat Diagnostic Imagining Performed 07/21/24 13:22 CT head/brain wo con Stat Reviewed imaging, laboratory and diagnostic studies. Pertinent findings as belo w. CBC completely within normal range BMP within normal range TSH 17.43 Free T41.5 Urinalysis completely normal Urine drug screen negative Screen for Lyme was positive however confirmation testing negative, low suspicion for any type of tickborne disease Pending Results Patient Have Any Pending Studies at Discharge: No Discharge Instructions Given to Patient (Per Discharging Provider) Continue with your home care as previous You received all the antibiotics you need for your urinary tract infection here in the hospital Home Health Attestation I certify that this patient is under my care and that I, or a physicians assistant clinical nurse manager working with me, had a face to-face encounter that meets the home health [id number] encounter requirements with this patient. The encounter with the patient was in whole, or in part, for the following medical condition, which is the primary reason for home health care (list medical condition): I certify that, based on my findings, the following services are medically necessary home health services: My clinical findings support the need for the above services because: Further, I certify that my clinical findings support that this patient is homebound (i.e. absences from home require considerable and taxing effort and are for medical reasons or baptism services or infrequently or of short dura tion when for other reasons) because: Certification for Home Health Services: Based on the above findings, I certify that this patient is confined to the home and needs intermittent half-way care, physical therapy and/or speech therapy or continues to need occupational therapy. The patient is under my care, and I have initiated the establishment of the plan of care. This patient will be followed by a physician who will periodically review the plan of care. Total Time Total Time Spent Total Time Spent (In Minutes): 36
--- NOTE | 2024-07-23 15:31 | Hospitalist Progress Note ---
Date of Service July 23, 2024 Assessment & Plan (1) Delirium due to another medical condition: (2) Hypothyroidism: (3) UTI (urinary tract infection): Plan: Completed treatment Plan Patient appears to be at her baseline. Phone conversation with patient's brother. Agreeable to plans for discharge today. Updated by rn case mgr, apparently patient's home health caregivers unable to arrange transportation or care today and patient unable to be discharged today due to coordination of care on their side. Will attempt to coordinate discharge and transportation early tomorrow morning. Admission and Anticipated Discharge Date Admission Date: July 21, 2024 Subjective No hallucinations, no acute issues. Physical Exam Physical Exam: Constitutional: Alert, nontoxic HEENT: Mucous membranes moist. Lungs: Clear to auscultation, decreased, no wheezes rales or rhonchi CV: S1-S2, regular Abdomen: Soft, nontender, nondistended Extremities: No significant edema Neuro: No focal deficits, Psych: Cooperative, normal mood, baseline cognitive abilities Results & Data Results & Data Vital Signs (Past 12 Hours) Vital Signs Temp Pulse Pulse Resp BP BP Pulse Ox 07/23/24 15:15 36.6 C 68 63 16 126/71 132/84 92 07/23/24 07:09 36.6 C 63 126/71 92 O2 Del Method 07/23/24 15:15 07/23/24 07:09 Room Air Diagnostic Findings Reviewed imaging, laboratory and diagnostic studies. Pertinent findings as below. (2) Hypothyroidism Hypothyroidism type: unspecified Qualified Code(s): E03.9 - Hypothyroidism, unspecified
[2024-07-23 23:58] VITALS: RESP 18
[2024-07-24 08:05] VITALS: BP 151/80; PULSE 60; TEMP 97.5; O2SAT 96
== END 2024-07-24 08:49 | disposition home or self-care (01) | DRG 644 ==
LOC: ED 12:22 → 2N 15:13 → SUATTDRO 15:13 → 2N 16:39

== ENCOUNTER 2024-10-09 10:32 | Inpatient (IN) ==
--- NOTE | 2024-10-09 11:07 | Emergency Department Note ---
Impression & Plan Hallucinations, Leg swelling ED Provider Note Provider: Carmelo Morrissey MD CHIEF COMPLAINT: Increased confusion fatigue HISTORY OF PRESENT ILLNESS: Patient is a 63-year-old female past medical history of UTIs and some cognitive impairment presenting here today via ambulance from [place]. Went over with her caregiver today and caregiver noted the patient was increasingly confused and fatigued. Did have a UTI several weeks ago and completed antibiotics for this. No falls or trauma reported. Patient herself denies pain to me. Does report some fatigue. Denies urinary burning or frequency with me. No new focal numbness or weakness. Does have a little bit of tenderness with bilateral leg swelling which she is unable to tell me if it is new or old. Keenly alert to time and place. PAST MEDICAL HISTORY: As noted above MEDICATIONS: Reviewed home medications SOCIAL HISTORY: Resides at home PHYSICAL EXAM: GENERAL: alert and oriented in no acute distress on stretcher resting on bed Head: normocephalic and atraumatic EYES: No injection, discharge or icterus. PERRL, EOMI. NECK: Trachea midline. Supple. ENT: Mucous membranes pink and moist. Pharynx without erythema or exudate. LUNGS: Airway patent. No retractions. Breath sounds clear with good air entry bilaterally. HEART: Regular rate and rhythm. No chest wall tenderness ABDOMEN: Soft and non-tender, without guarding or rebound. SKIN: Acyanotic, warm, dry, without rashes EXTREMITIES: Without deformity with 1-2+ edema the bilateral lower legs. Little bit erythema but no large open wounds noted. NEUROLOGICAL: No focal deficits. No aphasia. No facial droop or slurred speech. Ambulatory. EK beats per minute. Sinus rhythm. No PVC or PAC. No acute ST segment elevation or depression with a QTc of 430. CONTINUOUS CARDIAC MONITORING: was ordered and showed a heart rate of 50s to 70s bpm in normal sinus rhythm to sinus bradycardia Patient's laboratory studies and imaging reviewed. Differential includes Infection, dehydration, metabolic abnormality, hypo/hyperglycemia, electrolyte disturbance, anemia, hypoxia, cardiac sources, intracerebral event, toxicologic, neurologic, as well as other pathologies. IMPRESSION/MEDICAL DECISION MAKING: Patient awake and alert and fully knows where she is at what day and year it is. Does not appear altered at this time maybe a little bit fatigued. No focal numbness or weakness and low suspicion for CVA. Doubt meningitis. Denies significant pain and no traumas reported. Does have some swelling of the bilateral lower legs with mild tenderness. History of UTI. Will check urine and basic labs. Will obtain head CT exclude occult intracranial abnormality given the fatigue report. Benign abdomen on exam and I doubt acute intra- abdominal pathology. Not hypoxic or febrile and lower suspicion for sepsis or pneumonia. Blood work here today without significant anemia or leukocytosis. No skin electrolyte abnormality signs of renal dysfunction. No transaminitis. Normal BNP and troponin. Negative COVID testing. TSH somewhat low but free T4 is normal. Negative COVID testing. CT of the head and chest x-ray per radiology without acute findings. On reassessment patient's brother as well as caregiver are present. States since 2 months ago when she had a UTI she is never totally recovered is been having increasing loose [place] over the last 2 weeks. They have noticed in the past week increased work of the lower legs. They are concerned that she does not drink so well. Discussed with him and she reported she was sleeping on the couch and that there were visitors in her home. They report that she lives by herself and she has been sleeping on the couch and that the visitors are actually hallucinations. They have concerns about ability to function well at home and are unsure if she is taken to complete course of oral antibiotics for her UTI. They question if UTI still be present. Discussed the patient and will try to avoid additional fluids given her swelling but we will see if she can provide me a urine sample. With loose nations and new significant increase of lower extremity swelling, discussed further care here at the hospital. Hospitalist team was consulted. Urinalysis later returns without evidence of infection or blood. DIAGNOSIS: Hallucinations, lower extremity swelling DISPOSITION: Hospitalist will evaluate Patient was agreeable with this plan. Past Med/Surg History Problem List (Updated 10/09/24 @ 14:35 by Carmelo Morrissey M.D.) Leg swelling (Acute) Hallucinations (Acute) Delirium due to another medical condition History of UTI Altered mental status (Acute) Medical History (Updated 10/09/24 @ 14:35 by Carmelo Morrissey M.D.) Confusion Allergic rhinitis GERD (gastroesophageal reflux disease) Hypothyroidism Surgical History (Updated 07/21/24 @ 15:52 by KRAIG Angulo) No pertinent past surgical history Social History Smoking Status: Never smoker Tobacco Type: Declines Second Hand Exposure: No; Do You Dip or Chew Tobacco: No; Hx Alcohol Use: No Hx Substance Use: No Preferred Language: Stateless Communication Ability: Impaired Mastic Worker Required: No Beliefs That Will Affect Care: None Current Living Situation: Alone Current Living Situation Comment: [facility] helps at home Feels Safe at Home: Yes Assistive Devices: None Allergies Allergies Allergy/AdvReac Type Severity Reaction Status Date / Time No Known Allergies Allergy Verified 07/21/24 15:11 Home Meds Home Medications Medication Instructions Recorded Confirmed montelukast 10 mg tablet 10 mg PO DAILY 07/16/24 10/09/24 omeprazole 20 mg capsule,delayed 20 mg PO DAILY 07/16/24 10/09/24 release estradiol 0.01% (0.1 mg/gram) 1 applic vaginal DIRECTED 10/09/24 10/09/24 vaginal cream levothyroxine 150 mcg tablet 100 mcg PO DAILYBB 10/09/24 10/09/24 (Synthroid) Previous Rx's Medication Instructions Recorded L.acidop,casei,lactis,rham-B.lact,moriah 1 cap PO DAILY #30 caps 07/20/24 625 mg (10 billion cell) capsule (Advanced Probiotic) Results & Data (ED) Vital Signs Vital Signs - 24 hr 10/09/24 10:23 10/09/24 10:23 10/09/24 10:23 Temperature 36.8 C 36.8 C Temperature Source Oral Oral Pulse Rate 69 Pulse Rate [Apical] 69 Pulse Rhythm Regular Pulse Rhythm [Apical] Regular Pulse Strength Normal Pulse Strength [Apical] Normal Respiratory Rate 18 18 Respiratory Effort / Characteristics Non-Labored Spontaneous Non-Labored Spontaneous Respiratory Depth Normal Normal Respiratory Pattern Regular Regular Blood Pressure 122/98 Blood Pressure [Right Arm] 122/98 Blood Pressure Mean 106 Blood Pressure Mean [Right Arm] 106 Blood Pressure Position Sitting Blood Pressure Position [Right Arm] Sitting Pulse Oximetry 99 99 99 Oxygen Delivery Method Room Air Room Air Room Air Sepsis Recent Fever Within 48 Hours No Sepsis New/Unexplained Change in Mental Status Yes Sepsis Action Taken by Nursing No Action Required 10/09/24 10:46 10/09/24 10:49 10/09/24 12:23 Temperature Temperature Source Pulse Rate 83 69 Pulse Rate [Apical] 60 Pulse Rhythm Regular Pulse Rhythm [Apical] Regular Pulse Strength Pulse Strength [Apical] Normal Respiratory Rate 18 14 Respiratory Effort / Characteristics Non-Labored Spontaneous Respiratory Depth Normal Respiratory Pattern Regular Blood Pressure Blood Pressure [Right Arm] 112/56 L Blood Pressure Mean Blood Pressure Mean [Right Arm] 74 Blood Pressure Position Blood Pressure Position [Right Arm] Sitting Pulse Oximetry 99 99 Oxygen Delivery Method Room Air Room Air Sepsis Recent Fever Within 48 Hours Sepsis New/Unexplained Change in Mental Status Sepsis Action Taken by Nursing 10/09/24 14:00 Temperature Temperature Source Pulse Rate Pulse Rate [Apical] 61 Pulse Rhythm Pulse Rhythm [Apical] Pulse Strength Pulse Strength [Apical] Respiratory Rate 17 Respiratory Effort / Characteristics Non-Labored Spontaneous Respiratory Depth Normal Respiratory Pattern Regular Blood Pressure Blood Pressure [Right Arm] 107/59 L Blood Pressure Mean Blood Pressure Mean [Right Arm] 75 Blood Pressure Position Blood Pressure Position [Right Arm] Pulse Oximetry 98 Oxygen Delivery Method Room Air Sepsis Recent Fever Within 48 Hours Sepsis New/Unexplained Change in Mental Status Sepsis Action Taken by Nursing Laboratory Data 10/09/24 10:50 10/09/24 10:50 Lab Results 10/09/24 10/09/24 10/09/24 Range/Units 10:50 11:52 14:10 WBC 5.80 (4.8-10.8) K/ul RBC 4.94 (4.20-5.40) M/uL Hgb 14.2 (12.0-16.0) g/dl Hct 42.8 (37.0-47.0) % MCV 86.6 (80.0-100.0) fL MCH 28.7 (25.0-34.0) pg MCHC 33.2 (32.0-36.0) g/dL RDW Std Deviation 41.9 (36.4-46.3) fL RDW Coeff of Yann 13.5 (11.5-14.5) % Plt Count 290 (130-400) K/uL MPV 9.8 (9.4-12.4) fL Immature Gran % (Auto) 0.2 % Neut % (Auto) 62.2 % Lymph % (Auto) 24.0 % Stewart % (Auto) 8.3 % Eos % (Auto) 4.3 % Baso % (Auto) 1.0 % Neut # (Auto) 3.61 (1.40-6.50) K/uL Lymph # (Auto) 1.39 (1.20-3.40) K/uL Stewart # (Auto) 0.48 (0.11-0.59) K/uL Eos # (Auto) 0.25 (0.00-0.50) K/uL Baso # (Auto) 0.06 (0.00-0.20) K/uL Immature Gran # (Auto) 0.01 (0.01-0.20) K/uL Sodium 140 (136-145) mmol/L Potassium 4.1 (3.5-5.1) mmol/L Chloride 103 (98-107) mmol/L Carbon Dioxide 32 (21-32) mmol/L Anion Gap 5 (3-11) BUN 16 (6-23) mg/dl Creatinine 0.75 (0.6-1.2) mg/dl Est Cr Clr Drug Dosing 74.3 ml/min eGFR 90.52 BUN/Creatinine Ratio 21.3 H (10-20) Glucose 110 H (70-99(Fasting)) mg/dl Calcium 9.8 (8.6-10.3) mg/dl Magnesium 2.2 (1.7-2.4) mg/dl Total Bilirubin 0.4 (0.2-1.0) mg/dl AST 16 (13-39) U/L ALT 18 (7-52) U/L Alkaline Phosphatase 94 (34-104) U/L Troponin I High Sens 3.0 (0-14) pg/ml B-Natriuretic Peptide 17 (0-100) pg/ml Total Protein 7.2 (6.0-8.3) gm/dl Albumin 3.9 (3.4-5.0) gm/dl Globulin 3.3 (2.5-4.0) gm/dl Albumin/Globulin Ratio 1.2 (0.9-2) TSH 0.064 L (0.300-4.500) uIu/ml Free T4 1.49 (0.61-1.60) ng/dl Urine Color Yellow Urine Appearance Clear (Clear) Urine pH 8.0 H (4.5-7.5) Ur Specific [place] 1.007 (1.000-1.030) Urine Protein Negative (Negative) Urine Glucose (UA) Negative (Negative) Urine Ketones Negative (Negative) Urine Blood Negative (Negative) Urine Nitrite Negative (Negative) Urine Bilirubin Negative (Negative) Urine Urobilinogen Negative (Negative) Ur Leukocyte Esterase Negative (Negative) Urine Comment SARS-CoV-2, RNA, NAAT NEGATIVE (NEGATIVE) Imaging Data Radiologist's Impression: Chest X-Ray 10/09/24 10:49 XR chest 1V portable CLINICAL HISTORY: swelling COMPARISON STUDY: 07/21/2024 FINDINGS: Stable mild cardiomegaly without pulmonary vascular congestion. No consolidation or pleural effusion. No pneumothorax. IMPRESSION: No acute findings. ACT 112: Negative or not required by law. Electronically signed by: Ankit Stahl M.D. 10/09/2024 12:[address] 10/09/24 10:49 CT head/brain wo con CLINICAL HISTORY: confusion. TECHNIQUE: Multiple axial CT images of the head were obtained without contrast. A dose lowering technique was utilized adhering to the principles of ALARA. CT DOSE: 580.53 mGy.cm COMPARISON: 07/21/2024 FINDINGS: No intracranial hemorrhage seen. No mass effect, midline shift, or hydrocephalus. No skull fracture seen. There are mild chronic small vessel ischemic changes. IMPRESSION: No acute findings. ACT 112: Negative or not required by law. The above report was generated using voice recognition software. It may contain grammatical, syntax or spelling errors. Electronically signed by: Ankit Stahl M.D. 10/09/2024 12:23 PM Discharge Plan Visit Data Chief Complaint: Confusion ED Provider: Carmelo Morrissey Discharge Problem: Hallucinations, Leg swelling Patient Disposition: Being Evaluated by Hospitalist Condition: Good Forms Stand Alone Forms: My [facility] Prescriptions Prescriptions: No Action omeprazole 20 mg capsule,delayed release(DR/EC) 20 mg PO DAILY montelukast 10 mg tablet 10 mg PO DAILY Advanced Probiotic 625 mg (10 billion cell) Capsule 1 cap PO DAILY Qty: 30 0RF estradiol 0.01 % (0.1 mg/gram) cream 1 applic VAGINAL DIRECTED levothyroxine [Synthroid] 150 mcg tablet 100 mcg PO DAILYBB Referrals Referrals: Valorie Fowler CRNP [Primary Care Provider] -
[2024-10-09 11:16] LABS: Hematocrit (blood only) 42.8 % (37.0-47.0); Hemoglobin 14.2 g/dl (12.0-16.0); Immature Granulocytes # (auto) 0.01 K/uL (0.01-0.20); Immature Granulocytes % (auto) 0.2 %; Mean Corpuscular Hemoglobin 28.7 pg (25.0-34.0); Mean Corpuscular Volume 86.6 fL (80.0-100.0); Platelet Count 290 K/uL (130-400); RDW Standard Deviation 41.9 fL (36.4-46.3); Red Blood Count 4.94 M/uL (4.20-5.40); White Blood Count 5.80 K/ul (4.8-10.8)
[2024-10-09 11:32] LABS: Alanine Aminotransferase 18.0 U/L (7-52); Albumin Globulin Ratio 1.2 (0.9-2); Alkaline Phosphatase 94.0 U/L (34-104); Anion Gap 5.0 (3-11); Bilirubin,Total 0.4 mg/dl (0.2-1.0); Blood Urea Nitrogen 16.0 mg/dl (6-23); Calcium 9.8 mg/dl (8.6-10.3); Carbon Dioxide 32.0 mmol/L (21-32); Chloride 103.0 mmol/L (98-107); Creatinine Clr Calc Pharmacy 74.3 ml/min; Globulin 3.3 gm/dl (2.5-4.0); Glucose 110.0 mg/dl (70-99(Fasting)); Magnesium 2.2 mg/dl (1.7-2.4); Potassium 4.1 mmol/L (3.5-5.1); Sodium 140.0 mmol/L (136-145); Total Protein 7.2 gm/dl (6.0-8.3)
[2024-10-09 11:47] LABS: Thyroid Stimulating Hormone 0.064 uIu/ml (0.300-4.500)
--- NOTE | 2024-10-09 12:02 | Electrocardiogram Report ---
Test Reason : Blood Pressure : */* mmHG Vent. Rate : 77 BPM Atrial Rate : 77 BPM P-R Int : 184 ms QRS Dur : 66 ms QT Int : 380 ms P-R-T Axes : 114 12 25 degrees QTcB Int : 430 ms Normal sinus rhythm Poor R wave progression, consider anterior AL vs. lead placement vs. LVH Abnormal ECG When compared with ECG of 21-Jul-2024 13:49, Nonspecific T wave abnormality no longer evident in Lateral leads Confirmed by Bryce Ruffin ([id number]) on 10/09/2024 12:02:21 PM Referred By: Confirmed By: Bryce Ruffin
--- NOTE | 2024-10-09 12:24 | CT Scan Report ---
CT head/brain wo con CLINICAL HISTORY: confusion. TECHNIQUE: Multiple axial CT images of the head were obtained without contrast. A dose lowering tech nique was utilized adhering to the principles of ALARA. CT DOSE: 580.53 mGy.cm COMPARISON: 07/21/2024 FINDINGS: No intracranial hemorrhage seen. No mass effect, midline shift, or hydrocephalus. No skull fracture seen. There are mild chronic small vessel ischemic changes. IMPRESSION: No acute findings. ACT 112: Negative or not required by law. The above report was generated using voice recognition software. It may contain grammatical, syntax o r spelling errors. Electronically signed by: Ankit Stahl M.D. 10/09/2024 12:23 PM
--- NOTE | 2024-10-09 12:41 | XRay Report ---
XR chest 1V portable CLINICAL HISTORY: swelling COMPARISON STUDY: 07/21/2024 FINDINGS: Stable mild cardiomegaly without pulmonary vascular congestion. No consolidation or pleural effusion. No pneumothorax. IMPRESSION: No acute findings. ACT 112: Negative or not required by law. Electronically signed by: Ankit Stahl M.D. 10/09/2024 12:40 PM
[2024-10-09 14:28] LABS: Appearance Urine Clear (Clear); Glucose Urine UA Negative (Negative)
--- NOTE | 2024-10-09 15:02 | History & Physical Report ---
Date of Service October 09, 2024 Assessment & Plan (1) Hallucinations: (2) Leg swelling: Plan This is a 63-year-old female who has significant past medical history of intellectual disability, hypothyroidism, HLD, intermittent asthma, GERD and allergic rhinitis who presents to ED secondary to auditory hallucinations. #Auditory Hallucinations #Intellectual disability admit pt to medical no clear evidence of UTI, UA completely benign pt does have a neuropsych referral as outpt - but has not had formal eval will obtain B12, NH3, VBG, UDS, ETOH ? if in setting of possible b/l cellulitis vs undiagnosed cognitive decline #Bilateral lower extremity swelling #Possible bilateral cellulitis obtain venous dopplers, afebrile, no leukocytosis possible dependent edema given heat/humidity and pt having legs dangling encourage leg elevation obtain echo, BNP is normal, LFTS normal empirically tx with IV ceftriaxone #Hypothyroidism outpt providers have decreased levothyroxine dose from 150mcg down to 100mcg they are following closely and repeating TSH #DVT ppx: SQ Lovenox FULL CODE PCP: KRAIG Freitas Dispo: admit to med/surg, PT/OT ordered, pt may benefit from LTC PT was seen and examined in collaboration with Dr. Win, please see addendum I spent a total of 50 minutes coordinating, documenting and providing care for this patient excluding time spent in the performance of separately billed services or time spent by another provider/QHP. History of Present Illness Chief Complaint: Hallucinations. Primary Care Provider: KRAIG Floyd This is a 63-year-old female who has significant past medical history of intellectual disability, hypothyroidism, HLD, intermittent asthma, GERD and allergic rhinitis who presents to ED secondary to auditory hallucinations. Patient's brother and caregiver are at bedside. She has caregivers from the [facility] coming throughout the week. Caregiver notes increase in auditory hallucinations. This been ongoing for the past 2 months. She was initially admitted here approximately in June with similar symptoms. At that point in time she was diagnosed with a urinary tract infection. Since then she has had recurrent urinary tract infections which seemingly go [id number] with increasing auditory hallucinations. She recently completed a course of oral Macrobid from an infection in early September. Brother at bedside notes that she will come running [facility] of [facility] due to her hallucinations. She also has been sleeping on the couch due to thinking she has, "visitors." She is currently being worked up as an outpatient and has a referral to neuropsychiatry but has yet to be evaluated. According to caregivers and family member at bedside her hallucinations have been constant over the last 2 months and have never really went away despite treatment of the urinary tract infections. They feel she has been more confused and are concerned with her living alone at home. She does live by herself and ambulates without assistance. Caregiver notes increasing lower extremity swelling and redness over the last 2 days. In ED patient remained hemodynamically stable. Her lab work and urinalysis were relatively unremarkable. She is being admitted for further workup as well as inability to live at home safely at this current time. Allergies Allergy/AdvReac Type Severity Reaction Status Date / Time No Known Allergies Allergy Verified 07/21/24 15:11 Home Medications Medication Instructions Recorded Confirmed Type montelukast 10 mg tablet 10 mg PO DAILY 07/16/24 10/09/24 History omeprazole 20 mg capsule,delayed 20 mg PO DAILY 07/16/24 10/09/24 History release L.acidop,casei,lactis,rham-B.lact,moriah 1 cap PO DAILY #30 caps 07/20/24 10/09/24 Rx 625 mg (10 billion cell) capsule (Advanced Probiotic) estradiol 0.01% (0.1 mg/gram) 1 applic vaginal DIRECTED 10/09/24 10/09/24 History vaginal cream levothyroxine 150 mcg tablet 100 mcg PO DAILYBB 10/09/24 10/09/24 History (Synthroid) Past Med/Surg History Problem List Leg swelling (Acute) Hallucinations (Acute) Delirium due to another medical condition History of UTI Altered mental status (Acute) Medical History Confusion Allergic rhinitis GERD (gastroesophageal reflux disease) Hypothyroidism Surgical History No pertinent past surgical history Social History Smoking Status: Never smoker Tobacco Type: Declines Second Hand Exposure: No; Do You Dip or Chew Tobacco: No; Hx Alcohol Use: No Hx Substance Use: No Preferred Language: Pashto Communication Ability: Impaired Webbing Seamer Pound Net Required: No Beliefs That Will Affect Care: None Current Living Situation: Alone Current Living Situation Comment: [facility] helps at home Feels Safe at Home: Yes Assistive Devices: None Review of Systems Review of Systems: All systems reviewed & are unremarkable except as noted in HPI & below Physical Exam Physical Exam: please refer to Dr. Win addendum for physical exam findings. Results & Data Results & Data Vital Signs (Past 12 Hours) Vital Signs Temp Pulse Pulse Resp BP BP Pulse Ox 10/09/24 14:53 61 10/09/24 14:00 61 17 107/59 L 98 10/09/24 12:23 60 14 112/56 L 99 10/09/24 10:49 69 18 99 10/09/24 10:46 83 10/09/24 10:23 36.8 C 69 18 122/98 99 10/09/24 10:23 99 10/09/24 10:23 36.8 C 69 18 122/98 99 O2 Del Method 10/09/24 14:53 10/09/24 14:00 Room Air 10/09/24 12:23 Room Air 10/09/24 10:49 Room Air 10/09/24 10:46 10/09/24 10:23 Room Air 10/09/24 10:23 Room Air 10/09/24 10:23 Room Air Laboratory Results I have independently reviewed and interpreted patient's admitting labs including CBC, CMP, tsh/t4, UA, mag and troponin. Diagnostic Findings Chest X-Ray 10/09/24 10:49 XR chest 1V portable CLINICAL HISTORY: swelling COMPARISON STUDY: 07/21/2024 FINDINGS: Stable mild cardiomegaly without pulmonary vascular congestion. No consolidation or pleural effusion. No pneumothorax. IMPRESSION: No acute findings. ACT 112: Negative or not required by law. Electronically signed by: Ankit Stahl M.D. 10/09/2024 12:[address] 10/09/24 10:49 CT head/brain wo con CLINICAL HISTORY: confusion. TECHNIQUE: Multiple axial CT images of the head were obtained without contrast. A dose lowering technique was utilized adhering to the principles of ALARA. CT DOSE: 580.53 mGy.cm COMPARISON: 07/21/2024 FINDINGS: No intracranial hemorrhage seen. No mass effect, midline shift, or hydrocephalus. No skull fracture seen. There are mild chronic small vessel ischemic changes. IMPRESSION: No acute findings. ACT 112: Negative or not required by law. The above report was generated using voice recognition software. It may contain grammatical, syntax or spelling errors. Electronically signed by: Ankit Stahl M.D. 10/09/2024 12:23 PM ECG Additional Comments: I have independently reviewed and interpreted patient's admitting EKG which revealed: 77 NSR, V1/V2 t wave inversion which is similar to previous COVID-19 Results Results COVID-19 Adm Lab Results: RBC 4.94 M/uL (4.20-5.40) 10/09/24 WBC 5.80 K/ul (4.8-10.8) 10/09/24 Hgb 14.2 g/dl (12.0-16.0) 10/09/24 Hct 42.8 % (37.0-47.0) 10/09/24 Plt Count 290 K/uL (130-400) 10/09/24 Neutrophils (%) (Auto) 62.2 % 10/09/24 Lymphocytes (%) (Auto) 24.0 % 10/09/24 Monocytes # (Auto) 0.48 K/uL (0.11-0.59) 10/09/24 Eosinophils # (Auto) 0.25 K/uL (0.00-0.50) 10/09/24 Immature Granulocyte % (Auto) 0.2 % 10/09/24 Neutrophils # (Auto) 3.61 K/uL (1.40-6.50) 10/09/24 Lymphocytes # (Auto) 1.39 K/uL (1.20-3.40) 10/09/24 Monocytes # (Auto) 0.48 K/uL (0.11-0.59) 10/09/24 Eosinophils # (Auto) 0.25 K/uL (0.00-0.50) 10/09/24 Basophils # (Auto) 0.06 K/uL (0.00-0.20) 10/09/24 Immature Granulocyte # (Auto) 0.01 K/uL (0.01-0.20) 5 Na 140 mmol/L (136-145) 10/09/24 K 4.1 mmol/L (3.5-5.1) 10/09/24 Cl 103 mmol/L (98-107) 10/09/24 CO2 32 mmol/L (21-32) 10/09/24 Anion Gap 5 (3-11) 10/09/24 BUN 16 mg/dl (6-23) 10/09/24 Creatinine 0.75 mg/dl (0.6-1.2) 10/09/24 BUN/Creatinine Ratio 21.3 (10-20) H 10/09/24 Glucose Level 110 mg/dl (70-99(Fasting)) H 10/09/24 Ca 9.8 mg/dl (8.6-10.3) 10/09/24 Total Bilirubin 0.4 mg/dl (0.2-1.0) 10/09/24 AST/SGOT 16 U/L (13-39) 10/09/24 ALT/SGPT 18 U/L (7-52) 10/09/24 Alkaline Phosphatase 94 U/L (34-104) 10/09/24 Total Protein 7.2 gm/dl (6.0-8.3) 10/09/24 Albumin 3.9 gm/dl (3.4-5.0) 10/09/24 Globulin 3.3 gm/dl (2.5-4.0) 10/09/24 Albumin/Globulin Ratio 1.2 (0.9-2) 10/09/24 SARS-CoV-2, RNA, NAAT NEGATIVE (NEGATIVE) 10/09/24 Chest X-Ray 10/09/24 Code Status & VTE Plan Code Status FULL CODE VTE Prophylaxis Plan VTE Prophylaxis will be ordered: Yes Supervising Physician Co-Signing Physician Notes Patient is a 63-year-old female with intellectual disability, hypothyroidism, asthma, GERD and other medical problems presents for evaluation of auditory hallucinations and bilateral leg swelling. History is also obtained from caregivers at bedside. She has been having hallucinations over the past 2 months. Patient had multiple UTIs in the past per caregivers. Given abnormal thyroid function test as outpatient, patient's levothyroxine dose was recently decreased. Patient currently is not on any sedative hypnotics, antipsychotics and denies any [id number] medication use. Please review HPI for complete details of presentation. I personally reviewed blood work and imaging studies. CT head, chest x-ray showed no acute process. Noted abnormal thyroid function test with low TSH, normal free T4. Venous Doppler showed no DVT. Urinalysis within normal limits. Physical Exam: Vitals signs as noted above General Appearance:Overweight, no apparent distress Head: normocephalic, Atraumatic Eyes: normal inspection, EOMI Neck: supple, Trachea midline Respiratory/Chest: Normal breath sounds, CTA, No accessory muscle use Cardiovascular: S1, S2, No murmur Abdomen/GI:Soft, Non tender, Bowel sounds present Extremities/Musculoskeletal:normal inspection, B/L LE edema Neurologic/Psych:AAOX3, grossly no focal neurological deficits Skin: normal color, warm Auditory hallucinations Intellectual disability Unclear etiology Agree with workup as above Reorient frequently to minimize delirium Will consult psychiatry Bilateral lower extremity swelling Suspected cellulitis/venous insufficiency Empirically started on IV Rocephin Echo pending Hypothyroidism Abnormal thyroid function test Needs repeat testing as outpatient I personally interviewed and examined the patient at bedside. I have reviewed the advanced practitioner's documentation on the date of service referred in note and agree with plan. Patient's care is coordinated with Korin Frazier. Please refer to the documentation above for details of patient's presentation and for discussion of other issues. I spent a total [id number] coordinating, documenting, and providing care for this patient excluding time spent in the performance of separately billed services or time spent by another provider/QHP.
[2024-10-09 16:33] LABS: Base Excess VBG 7.2 mEq/L; HCO3 VBG 33 mmol/L; Oxygen Saturation VBG < 60.0 %; PCO2 VBG 48 mmHg (38-50); PO2 VBG 30 mmHg; pH VBG 7.44 (7.36-7.41)
[2024-10-09] MEDS: cefTRIAXone SODIUM 2,000 MG/50 ML BAG IV SCH (17:02)
[2024-10-09] MEDS ORDERED: MELATONIN 3 MG TAB PO PRN (17:15)
[2024-10-09] MEDS ORDERED: ONDANSETRON INJ 2 MG/ML 2 ML VIAL IV PRN (17:15)
[2024-10-09] MEDS ORDERED: FAMOTIDINE 20 MG TAB PO PRN (17:15)
--- NOTE | 2024-10-09 18:10 | Ultrasound Report ---
EXAM: US venous doppler LE BI CLINICAL HISTORY: edema TECHNIQUE: Ultrasound examination of bilateral lower extremity veins was performed in real time and duplex. One or more of the following were performed- spectral analysis, resistive index, waveform analysis, and pulsed Doppler. COMPARISON: None. FINDINGS: Normal phasic, non-pulsatile, and spontaneous flow is noted in the bilateral common femoral, the great saphenous, the Profunda femoris, the femoral, the popliteal, the Anterior and posterior tibial, and the peroneal veins. Visualized veins of both lower extremities demonstrate normal compressibility. No sonographic evidence of acute deep vein thrombosis (DVT) is detected in the visualized veins of both lower extremities. Compression and Augmentation: All evaluated veins compress fully with applied transducer pressure. Augmentation of venous flow is noted with distal compression. Additional Findings: Subcutaneous edema was noted at the knee level and distally. IMPRESSION: No sonographic evidence of acute DVT was detected in bilaterally visualized veins at the time of examination. Disclaimer: DVT could be missed early in the disease when clot burden is minimal. For patients with moderate and high pretest probability of DVT and negative ultrasound, the [employer] clinical guidelines recommend testing with a D-dimer assay or repeat ultrasound in 5-7 days. If symptoms worsen, the Society of radiologists in ultrasound recommends repeating ultrasound even earlier. Electronically signed by Dav Eaton 10-09-2024 6:10 PM
[2024-10-09] MEDS: ACETAMINOPHEN 325 MG TAB PO PRN (18:42)
[2024-10-09] MEDS: ENOXAPARIN INJ 40 MG/0.4 ML SYR SQ SCH (22:01)
[2024-10-09 22:47] LABS: Amphetamines+Metham, Urine Neg (Neg); MDMA (Ecstacy), Urine Neg (Neg); Marijuana, Urine Neg (Neg)
[2024-10-10] MEDS: LEVOTHYROXINE SODIUM 100 MCG TABLET PO SCH (05:11)
[2024-10-10 07:05] LABS: Hematocrit (blood only) 37.2 % (37.0-47.0); Hemoglobin 12.8 g/dl (12.0-16.0); Immature Granulocytes # (auto) 0.02 K/uL (0.01-0.20); Immature Granulocytes % (auto) 0.5 %; Mean Corpuscular Hemoglobin 29.4 pg (25.0-34.0); Mean Corpuscular Volume 85.3 fL (80.0-100.0); Platelet Count 254 K/uL (130-400); RDW Standard Deviation 40.7 fL (36.4-46.3); Red Blood Count 4.36 M/uL (4.20-5.40); White Blood Count 4.07 K/ul (4.8-10.8)
[2024-10-10 07:22] LABS: Alanine Aminotransferase 14.0 U/L (7-52); Albumin Globulin Ratio 1.4 (0.9-2); Alkaline Phosphatase 78.0 U/L (34-104); Anion Gap 5.0 (3-11); Bilirubin,Total 0.3 mg/dl (0.2-1.0); Blood Urea Nitrogen 13.0 mg/dl (6-23); Calcium 8.8 mg/dl (8.6-10.3); Carbon Dioxide 28.0 mmol/L (21-32); Chloride 107.0 mmol/L (98-107); Creatinine Clr Calc Pharmacy 98.7 ml/min; Globulin 2.4 gm/dl (2.5-4.0); Glucose 99.0 mg/dl (70-99(Fasting)); Magnesium 2.0 mg/dl (1.7-2.4); Potassium 4.1 mmol/L (3.5-5.1); Sodium 140.0 mmol/L (136-145); Total Protein 5.8 gm/dl (6.0-8.3)
--- NOTE | 2024-10-10 07:31 | Hospitalist Progress Note ---
Date of Service October 10, 2024 Assessment & Plan (1) Hallucinations: (2) Leg swelling: Plan This is a 63-year-old female who has significant past medical history of intellectual disability, hypothyroidism, HLD, intermittent asthma, GERD and allergic rhinitis who presents to ED secondary to auditory hallucinations. She has a mild intellectual disability but lives independently and has staff from the [facility] help her manage her care for a few hours during the week but they do not provide 24 hour care. Auditory Hallucinations: Intellectual disability: admit pt to medical no clear evidence of UTI, UA negative pt does have a neuropsych referral as outpt - but has not had formal eval; psych consult while inpt B12 normal 265 BNP 17, UDS and UA negative VBG normal Appears to be near or at her baseline from previous encounters; could possibly be worsening cognitive decline; may need repeat neurocognitive testing Bilateral lower extremity swelling, non pitting: Possible lymphedema afebrile, no leukocytosis Venous doppler US: negative for DVT possible dependent edema given heat/humidity and pt having legs dangling encourage leg elevation No transaminitis, BNP normal ECHO EF 60-65%, LVWMN, G1DDx empirically tx with IV ceftriaxone; urine culture pending Appears euvolemic on examination Hypothyroidism: outpt providers have decreased levothyroxine dose from 150mcg down to 100mcg between August and September 2024; closer to 7/3 TSH 0.064 here in ED Reduce Synthroid to 75 mcg daily starting today Ensure on discharge instructions that TSH level to be checked six weeks Disposition: PCP: KRAIG Freitas Code Status: Full Code Dispo: admit to med/surg, PT/OT ordered, pt may benefit from LTC in the future; per review of opt records: Brother is starting process of looking to care homes for her (Mary) I spent a total of 56 minutes coordinating, documenting and providing care for this patient excluding time spent in the performance of separately billed services or time spent by another provider/QHP. Admission and Anticipated Discharge Date Admission Date: October 09, 2024 Supervising Physician Co-Signing Physician Notes Attending addendum: The patient was seen and examined in medical floor in presence of the family member She has been stable and denies to have any more hallucinations Complains ankle pain On examination Lying in bed without any discomfort Remains hemodynamically stable Chest was clear to auscultation bilaterally HeartS1-S2, regular Abdomenbenign Extremitiesbilateral leg swelling due to lymphedema with minimal edema CNSdenies any hallucination His labs, imaging studies and medications reviewed Has been getting ceftriaxone for possible leg cellulitis.No evidence of DVT and/or significant echo abnormality Has severe intellectual disability Hypothyroid medication will be adjusted depending on TSH Agree with assessment and plan as outlined above by Leticia CORNELL and take the full responsibility of care in the hospital Dr Carey Alvarez Subjective Pt sitting in her hospital bed, just finishing breakfast in no apparent distress She denies MICHAEL, dizziness, SOB, CP, N/V/D. Does report she hears auditory hallucinations, none this morning. This is not uncommon for her. She was able to tell me she was at the hospital and why she was brought in for examination. See A/P for further details. Review of Systems Review of Systems: Neuro: (-) Falls, trauma, slurred speech HEENT: (-) MICHAEL, dizziness, dysphagia, visual or auditory changes CV: (-) CP, palpitations, swelling Resp: (-) SOB GI: (-) appetite changes, N/V/D, bowel changes : (-) urinary changes Skin: (-) rashes Psych: (-) anxiety, depression Physical Exam Physical Exam: Neuro: AAOx4, PERRLA, no aphagia, memory changes, CNII-XII grossly intact HEENT: head normocephalic, moist mucus membranes CV: S1/S2, (-) M/G/R, (-) edema, cap refill < 3 seconds Resp: Lungs CTA in all hidal[place]. On RA GI: Abdomen S/NT/ND, Ax4 bowel sounds, (-) CVA tenderness Musculoskeletal: 5/5 B/L UE strength, 5/5 B/L LE strength. Uses a walker intermittently Skin: (-) rashes , (-) erythema. Psych: euthymic mood Results & Data Results & Data Vital Signs (Past 12 Hours) Vital Signs Temp Pulse Resp BP Pulse Ox O2 Del Method 10/10/24 07:27 36.6 C 72 16 118/73 95 Room Air 10/09/24 22:00 Room Air 10/09/24 22:00 36.8 C 67 16 134/76 98 Room Air 10/09/24 22:00 Room Air Laboratory Results Short CBC 10/10/24 Range/Units 06:43 WBC 4.07 L (4.8-10.8) K/ul Hgb 12.8 (12.0-16.0) g/dl Hct 37.2 (37.0-47.0) % Plt Count 254 (130-400) K/uL BMP 10/10/24 06:43 Sodium 140 Potassium 4.1 Chloride 107 Carbon Dioxide 28 BUN 13 Creatinine 0.63 Glucose 99 Calcium 8.8 Liver Function 10/10/24 Range/Units 06:43 Total Bilirubin 0.3 (0.2-1.0) mg/dl AST 13 (13-39) U/L ALT 14 (7-52) U/L Alkaline Phosphatase 78 (34-104) U/L Albumin 3.4 (3.4-5.0) gm/dl Urine 10/09/24 Range/Units 14:10 Urine Color Yellow Urine Appearance Clear (Clear) Urine pH 8.0 H (4.5-7.5) Ur Specific [place] 1.007 (1.000-1.030) Urine Protein Negative (Negative) Urine Glucose (UA) Negative (Negative)
[2024-10-10] MEDS: MONTELUKAST SODIUM 10 MG TABLET PO SCH (07:37)
[2024-10-10] MEDS: ADVANCED PROBIOTIC 625 MG CAPSULE PO SCH (07:37)
--- NOTE | 2024-10-10 15:03 | Psychiatric Consultation ---
Date of Consultation October 10, 2024 Impression / Recommendations Impression Diagnostically unclear, assessment limited by her somnolence. No evidence so far today that she is responding to any internal stimuli. Hallucinations can be seen in intellectual disabilities or could represent a psychotic disorder (this seems less likely given historical and current presentation and no reported evidence for disorganization). Individuals with intellectual disabilities can also have onset of cognitive impairment at a younger age and hallucinations can be associated with cognitive impairment and dementia. Overall, I spent a total of 60 minutes with this case including review of chart records, review of labwork, direct evaluation of the patient at bedside, counseling the patient, discussion of the patient with the Nurse and with the hospitalist provider, discussion with the psychiatric liason during clinical rounds and documentation in the electronic health record. (1) Altered mental status: Plan -Do not recommend any antipsychotic medication at this time given her significant sedation and lack of notable distress today from any hallucinations nor evidence of acute psychosis -In the future could consider low dose abilify 2.5mg daily if hallucinations worsen or cause impairment/distress Psych History Identifying Data Ester is a 63-year-old female who has significant past medical history of intellectual disability, hypothyroidism, HLD, intermittent asthma, GERD and allergic rhinitis who presents to ED secondary to auditory hallucinations. Psyc hiatry consulted for hallucinations. Chief Complaint "Just resting my eyes". History of Present Illness Admitted due to reported increasing auditory hallucinations. Today is very somnolent and wakes briefly but falls back asleep and is unable to participate in any prolonged interview. Tells me that "I don't know" in regards to hallucinations. Per discussion with RN she's been sleeping all day. She was previously seen by psych liason RN in June 2024 and at that time she had some confusion and was having some visual hallucinations of seeing people in the yard at her brother's home and hearing sirens. Allergies Allergy/AdvReac Type Severity Reaction Status Date / Time No Known Allergies Allergy Verified 07/21/24 15:11 Home Medications Medication Instructions Recorded Confirmed Type montelukast 10 mg tablet 10 mg PO DAILY 07/16/24 10/09/24 History omeprazole 20 mg capsule,delayed 20 mg PO DAILY 07/16/24 10/09/24 History release L.acidop,casei,lactis,rham-B.lact,moriah 1 cap PO DAILY #30 caps 07/20/24 10/09/24 Rx 625 mg (10 billion cell) capsule (Advanced Probiotic) estradiol 0.01% (0.1 mg/gram) 1 applic vaginal DIRECTED 10/09/24 10/09/24 History vaginal cream levothyroxine 150 mcg tablet 100 mcg PO DAILYBB 10/09/24 10/09/24 History (Synthroid) Patient History Medical History Confusion Allergic rhinitis GERD (gastroesophageal reflux disease) Hypothyroidism Surgical History No pertinent past surgical history Social History Smoking Status: Never smoker Tobacco Type: Declines Second Hand Exposure: No; Do You Dip or Chew Tobacco: No; Hx Alcohol Use: No Hx Substance Use: No Preferred Language: Lithuanian Communication Ability: Impaired Communication Ability Comment: Pt is unable to anwer questions appropriately Auto Damage Trainee Required: No Beliefs That Will Affect Care: None Current Living Situation: Alone and Personal Care Facility Current Living Situation Comment: lives alone, ambulates independently Feels Safe at Home: No Is there a partner from a previous relationship who is making you feel unsafe now?: No Assistive Devices: None Physical Exam Vital Signs (Past 24 Hours): Last Vital Signs Temp 36.6 C 10/10/24 07:27 Pulse 72 10/10/24 07:27 Resp 16 10/10/24 07:27 BP 118/73 10/10/24 07:27 Pulse Ox 95 10/10/24 07:27 O2 Del Method Room Air 10/10/24 07:30 Results & Data (PSY) Medications Administered Acetaminophen (Acetaminophen 325 Mg Tab) 650 mg PO Q4H PRN PRN Reason: pain/fever Stop: 11/08/24 17:14 Last Admin: 10/09/24 18:42 Dose: 650 mg Documented By: KATTY Enoxaparin Sodium (Enoxaparin Inj 40 Mg/0.4 Ml Syr) 40 mg SQ HS MEL Stop: 11/08/24 20:59 Last Admin: 10/09/24 22:01 Dose: 40 mg Documented By: [id number] Ceftriaxone Sodium (Rocephin) 2,000 mg in 50 mls @ 100 mls/hr IV Q24H MEL Stop: 10/16/24 16:59 Last Infusion: 10/09/24 17:59 Dose: Infused Documented By: Admin: 10/09/24 17:02 Dose: 100 mls/hr Documented By: KATTY Lactobacillus Acidophilus (Advanced Probiotic 625 Mg Capsule) 1,250 mg PO DAILY MEL Stop: 11/09/24 08:59 Last Admin: 10/10/24 07:37 Dose: 1,250 mg Documented By: ANTHONY Montelukast Sodium (Montelukast Sodium 10 Mg Tablet) 10 mg PO DAILY MEL Stop: 11/09/24 08:59 Last Admin: 10/10/24 07:37 Dose: 10 mg Documented By: ANTHONY Pantoprazole Sodium (Pantoprazole 40 Mg Tab) 40 mg PO DAILY [facility] Stop: 11/09/24 08:59 Last Admin: 10/10/24 07:37 Dose: 40 mg Documented By: ANTHONY Coding Level of Care Code 68406 IN/OBS CONSULT LVL 4,60M Diagnoses Altered mental status R41.82
[2024-10-11 05:46] LABS: Hematocrit (blood only) 39.2 % (37.0-47.0); Hemoglobin 13.2 g/dl (12.0-16.0); Mean Corpuscular Hemoglobin 29.1 pg (25.0-34.0); Mean Corpuscular Volume 86.3 fL (80.0-100.0); Platelet Count 265 K/uL (130-400); RDW Standard Deviation 42.0 fL (36.4-46.3); Red Blood Count 4.54 M/uL (4.20-5.40); White Blood Count 5.23 K/ul (4.8-10.8)
[2024-10-11] MEDS: LEVOTHYROXINE SODIUM 75 MCG TABLET PO SCH (05:55)
[2024-10-11 06:00] LABS: Anion Gap 4.0 (3-11); Blood Urea Nitrogen 16.0 mg/dl (6-23); Calcium 9.1 mg/dl (8.6-10.3); Carbon Dioxide 30.0 mmol/L (21-32); Chloride 106.0 mmol/L (98-107); Creatinine Clr Calc Pharmacy 77.7 ml/min; Glucose 99.0 mg/dl (70-99(Fasting)); Potassium 4.7 mmol/L (3.5-5.1); Sodium 140.0 mmol/L (136-145)
--- NOTE | 2024-10-11 07:23 | Hospitalist Progress Note ---
Date of Service October 11, 2024 Assessment & Plan (1) Hallucinations: (2) Leg swelling: Plan This is a 63-year-old female who has significant past medical history of intellectual disability, hypothyroidism, HLD, intermittent asthma, GERD and allergic rhinitis who presents to ED secondary to auditory hallucinations. She has a mild intellectual disability but lives independently and has staff from the [facility] help her manage her care for a few hours during the week but they do not provide 24 hour care. Auditory Hallucinations: Intellectual disability: admit pt to medical no clear evidence of UTI, UA negative pt does have a neuropsych referral as outpt - but has not had formal eval; scheduled for 11/2024 Psych evaluated while here; appreciate reccs- patient was pretty somnolent when she saw her yesterday. Pt does have auditory hallucinations; trial abilify 2.5 mg QHS per psych reccs. B12 normal B12 normal, VBG normal, BNP 17, UDS and UA negative. Appears to be near or at her baseline from previous encounters; although this could possibly be general worsening of cognitive decline; may need repeat neurocognitive testing. Bilateral lower extremity swelling, non pitting: Possible lymphedema afebrile, no leukocytosis Venous doppler US: (-) DVT possible dependent edema given heat/humidity and pt having legs dangling encourage leg elevation No transaminitis, BNP normal ECHO EF 60-65%, LVWMN, G1DDx Empirically treated with IV Rocephin; last dose 10/11 Appears euvolemic on examination Hypothyroidism: OPT providers have decreased levothyroxine dose from 150mcg down to 100mcg between August and September 2024; closer to 09/24 TSH 0.064 here in ED Reduce Synthroid to 75 mcg daily starting 10/10 Ensure on discharge instructions that TSH level to be checked six weeks Disposition: PCP: KRAIG Freitas Code Status: Full Code Dispo: admit to med/surg, PT/OT ordered, pt may benefit from LTC in the future; per review of opt records: Brother is starting process of looking to care homes for her (Mary) I spent a total of 57 minutes coordinating, documenting and providing care for this patient excluding time spent in the performance of separately billed services or time spent by another provider/QHP. Admission and Anticipated Discharge Date Admission Date: October 09, 2024 Supervising Physician Co-Signing Physician Notes Attending addendum: The patient was seen and examined in medical floor in presence of the family member She has been stable and denies to have any more hallucinations Complains ankle pain On examination Lying in bed without any discomfort Remains hemodynamically stable Chest was clear to auscultation bilaterally HeartS1-S2, regular Abdomenbenign Extremitiesbilateral leg swelling due to lymphedema with minimal edema CNSdenies any hallucination His labs, imaging studies and medications reviewed Has been getting ceftriaxone for possible leg cellulitis.No evidence of DVT and/or significant echo abnormality Has severe intellectual disability Hypothyroid medication will be adjusted depending on TSH Agree with assessment and plan as outlined above by Leticia CORNELL and take the full responsibility of care in the hospital Dr Carey Alvarez 10/11/2024 The patient was seen and examined in medical floor She is totally awake, alert and conversing normally Denies any hallucinations in the form of auditory or Visual Her general examinations remain unremarkable and hemodynamically stable Medications and psychiatric input noted Agree with assessment plan as outlined above by KRAIG Montes take the full responsibility of care in the hospital DR Carey Alvarez Subjective Pt sitting in her hospital bed in no apparent distress. She denies MICHAEL, dizziness, SOB, CP, N/V/D. Does report she hears auditory hallucinations, none this morning. This is not uncommon for her; see note. Pt brother updated via phone Andreina [phone] Goal for DC Mon or See A/P for further details. Review of Systems Review of Systems: Neuro: (-) Falls, trauma, slurred speech HEENT: (-) MICHAEL, dizziness, dysphagia, visual or auditory changes CV: (-) CP, palpitations, swelling Resp: (-) SOB GI: (-) appetite changes, N/V/D, bowel changes : (-) urinary changes Skin: (-) rashes Psych: (-) anxiety, depression; intermittently tearful Physical Exam Physical Exam: Neuro: AAOx4, PERRLA, no aphagia, memory changes, CNII-XII grossly intact HEENT: head normocephalic, moist mucus membranes CV: S1/S2, (-) M/G/R, (-) edema, cap refill < 3 seconds Resp: Lungs CTA in all hidalgo. On RA GI: Abdomen S/NT/ND, Ax4 bowel sounds, (-) CVA tenderness Musculoskeletal: 5/5 B/L UE strength, 5/5 B/L LE strength. Uses a walker intermittently Skin: (-) rashes , (-) erythema. Psych: tearful intermittently, otherwise euthemic mood Results & Data Results & Data Vital Signs (Past 12 Hours) Vital Signs Temp Pulse Resp BP Pulse Ox O2 Del Method 10/10/24 19:29 36.8 C 71 18 102/67 93 Room Air Laboratory Results Short CBC 10/11/24 Range/Units 05:13 WBC 5.23 (4.8-10.8) K/ul Hgb 13.2 (12.0-16.0) g/dl Hct 39.2 (37.0-47.0) % Plt Count 265 (130-400) K/uL BMP 10/11/24 05:13 Sodium 140 Potassium 4.7 Chloride 106 Carbon Dioxide 30 BUN 16 Creatinine 0.80 Glucose 99 Calcium 9.1
--- NOTE | 2024-10-11 11:59 | Psychiatric Progress Note ---
Date of Service October 11, 2024 Impression / Recommendations Impression Diagnostically suspect auditory hallucinations in setting of anxiety and intellectual disability. Given that the hallucinations are interfering with her sleep and no excessive sedation today reasonable to consider use of low dose abilify. Suspect some of her fears about being placed in a more structured environment may be contributing to the voices as a manifestation of her anxiety. If this persists would then consider use of an SSRI medication if abilify is ineffective or causes side effects. Acute risk of self-harm is low given denial of SI, denial of depressive symptoms, denial of command hallucinations and future-oriented. Overall, I spent a total of 45 minutes with this case including review of chart records, review of labwork, direct evaluation of the patient at bedside, counseling the patient, discussion of the patient with the Nurse and with the hospitalist provider, discussion with the psychiatric liason during clinical rounds and documentation in the electronic health record. (1) Hallucinations: Plan -Start abilify 2.5mg HS -If ineffective or not well tolerated consider discontinuing abilify and trial of sertraline 25mg daily Interval History Identifying Information Ester is a 63-year-old female who has significant past medical history of intellectual disability, hypothyroidism, HLD, intermittent asthma, GERD and allergic rhinitis who presents to ED secondary to auditory hallucinations. Psychiatry consulted for hallucinations. Chief Complaint "I was hearing things". Subjective Subjective Patient was seen & assessed and interval progress reviewed. States her mood is "good" today but reports sleeping poorly due to hearing voices. Also heard the voices a bit this morning, denies currently. Denies SI nor HI. Denies depression nor anxiety. States voices sound like people who were in her home before coming to the hospital and last night were saying "we're coming to get you". Denies that the voices ever tell her to do anything. Sometimes they are nice. Thinks she recognizes the voices as people who were "from the [employer] and trying to get me to [employer] or to go to [facility]". Physical Exam Vital Signs (Past 24 Hours) Last Vital Signs Temp 36.5 C 10/11/24 08:01 Pulse 58 L 10/11/24 08:01 Resp 16 10/11/24 08:01 BP 119/73 10/11/24 08:01 Pulse Ox 94 10/11/24 08:01 O2 Del Method Room Air 10/11/24 08:01 Results & Data ([facility]) Laboratory Results Laboratory Results - last 24 hr 10/11/24 05:13 WBC 5.23 RBC 4.54 Hgb 13.2 Hct 39.2 MCV 86.3 MCH 29.1 MCHC 33.7 RDW Std Deviation 42.0 RDW Coeff of Yann 13.3 Plt Count 265 MPV 9.8 Sodium 140 Potassium 4.7 Chloride 106 Carbon Dioxide 30 Anion Gap 4 BUN 16 Creatinine 0.80 Est Cr Clr Drug Dosing 77.7 eGFR 83.78 BUN/Creatinine Ratio 20.0 Glucose 99 Calcium 9.1 Current Inpatient Medications Current Inpatient Medications: Current Inpatient Medications Acetaminophen (Acetaminophen 325 Mg Tab) 650 mg PO Q4H PRN PRN Reason: pain/fever Stop: 11/08/24 17:14 Last Admin: 10/09/24 18:42 Dose: 650 mg Enoxaparin Sodium (Enoxaparin Inj 40 Mg/0.4 Ml Syr) 40 mg SQ HS MEL Stop: 11/08/24 20:59 Last Admin: 10/10/24 20:21 Dose: 40 mg Famotidine (Famotidine 20 Mg Tab) 20 mg PO DAILY PRN PRN Reason: Heartburn Stop: 11/08/24 17:14 Ceftriaxone Sodium (Rocephin) 2,000 mg in 50 mls @ 100 mls/hr IV Q24H MEL Stop: 10/16/24 16:59 Last Infusion: 10/10/24 18:02 Dose: Infused Lactobacillus Acidophilus (Advanced Probiotic 625 Mg Capsule) 1,250 mg PO DAILY MEL Stop: 11/09/24 08:59 Last Admin: 10/11/24 09:45 Dose: 1,250 mg Levothyroxine Sodium (Levothyroxine Sodium 75 Mcg Tablet) 75 mcg PO DAILYBB MEL Stop: 11/10/24 06:29 Last Admin: 10/11/24 05:55 Dose: 75 mcg Melatonin (Melatonin 3 Mg Tab) 3 mg PO HS PRN PRN Reason: Insomnia Stop: 11/08/24 17:14 Montelukast Sodium (Montelukast Sodium 10 Mg Tablet) 10 mg PO DAILY MEL Stop: 11/09/24 08:59 Last Admin: 10/11/24 09:45 Dose: 10 mg Ondansetron HCl (Ondansetron Inj 2 Mg/Ml 2 Ml Vial) 4 mg IV Q6H PRN PRN Reason: Nausea Stop: 11/08/24 17:14 Pantoprazole Sodium (Pantoprazole 40 Mg Tab) 40 mg PO DAILY MEL Stop: 11/09/24 08:59 Last Admin: 10/11/24 09:45 Dose: 40 mg Polyethylene Glycol (Polyethylene (Miralax) 17 Gm Pack) 17 gm PO DAILY PRN PRN Reason: Constipation Stop: 11/08/24 17:14
[2024-10-11] MEDS: ARIPiprazole 5 MG TAB PO SCH (20:32)
[2024-10-12 06:51] LABS: Hematocrit (blood only) 38.3 % (37.0-47.0); Hemoglobin 12.6 g/dl (12.0-16.0); Mean Corpuscular Hemoglobin 28.2 pg (25.0-34.0); Mean Corpuscular Volume 85.7 fL (80.0-100.0); Platelet Count 248 K/uL (130-400); RDW Standard Deviation 41.1 fL (36.4-46.3); Red Blood Count 4.47 M/uL (4.20-5.40); White Blood Count 5.34 K/ul (4.8-10.8)
[2024-10-12 07:18] LABS: Anion Gap 5.0 (3-11); Blood Urea Nitrogen 16.0 mg/dl (6-23); Calcium 8.9 mg/dl (8.6-10.3); Carbon Dioxide 28.0 mmol/L (21-32); Chloride 106.0 mmol/L (98-107); Creatinine Clr Calc Pharmacy 90.1 ml/min; Glucose 103.0 mg/dl (70-99(Fasting)); Potassium 4.0 mmol/L (3.5-5.1); Sodium 139.0 mmol/L (136-145)
[2024-10-12 07:58] LABS: Hemoglobin A1C 5.9 % (4.5-5.6)
--- NOTE | 2024-10-12 10:55 | Hospitalist Progress Note ---
Date of Service October 12, 2024 Assessment & Plan (1) Hallucinations: (2) Leg swelling: Plan This is a 63-year-old female who has significant past medical history of intellectual disability, hypothyroidism, HLD, intermittent asthma, GERD and allergic rhinitis who presents to ED secondary to auditory hallucinations. Patient has a mild intellectual disability but lives independently and has staff from [facility] help her manage her care for a few hours during the week but they do not provide 24 hour care. Auditory Hallucinations: Intellectual disability: No clear evidence of UTI, UA negative Has a neuropsych referral as outpt - but has not had formal eval; scheduled for 11/2024 Psych evaluated while here; appreciate reccs- patient was pretty somnolent when she saw her yesterday Pt does have auditory hallucinations; trial Abilify 2.5 mg QHS per psych recs B12 normal B12 normal, VBG normal, BNP 17, UDS and UA negative. Appears to be near or at her baseline from previous encounters; although this could possibly be general worsening of cognitive decline; may need repeat neurocognitive testing Bilateral lower extremity swelling, non pitting Possible lymphedema afebrile, no leukocytosis Venous doppler US: (-) DVT Possible dependent edema given heat/humidity, encourage leg elevation No transaminitis, BNP normal ECHO EF 60-65%, LVWMN, G1DDx Empirically treated with IV Rocephin; last dose 10/11 Appears euvolemic on examination Hypothyroidism: OPT providers have decreased levothyroxine dose from 150mcg down to 100mcg between August and September 2024; closer to 09/24 TSH 0.064 here in ED Reduce Synthroid to 75 mcg daily starting 10/10 Ensure on discharge instructions that TSH level to be checked six weeks Disposition: PCP: KRAIG Freitas Code Status: Full Code Dispo: admit to med/surg, PT/OT ordered, brother looking for care homes, referral placed for [facility]. Per CM today, brother needs to complete paperwork and HH needs to eval patient at [facility] prior to acceptance - anticipated later this week Patient seen in collaboration with Dr. Alvarez. Please see addendum. I spent a total of 50 minutes coordinating, documenting, and providing care for this patient excluding time spent in the performance of separately billed services or time spent by another provider/QHP. Admission and Anticipated Discharge Date Admission Date: October 09, 2024 Supervising Physician Co-Signing Physician Notes Attending addendum: The patient was seen and examined in medical floor in presence of the family member She has been stable and denies to have any more hallucinations Complains ankle pain On examination Lying in bed without any discomfort Remains hemodynamically stable Chest was clear to auscultation bilaterally HeartS1-S2, regular Abdomenbenign Extremitiesbilateral leg swelling due to lymphedema with minimal edema CNSdenies any hallucination His labs, imaging studies and medications reviewed Has been getting ceftriaxone for possible leg cellulitis.No evidence of DVT and/or significant echo abnormality Has severe intellectual disability Hypothyroid medication will be adjusted depending on TSH Agree with assessment and plan as outlined above by Leticia CORNELL and take the full responsibility of care in the hospital Dr Carey Alvarez 10/11/2024 The patient was seen and examined in medical floor She is totally awake, alert and conversing normally Denies any hallucinations in the form of auditory or Visual Her general examinations remain unremarkable and hemodynamically stable Medications and psychiatric input noted Agree with assessment plan as outlined above by KRAIG Montes take the full responsibility of care in the hospital DR Carey Alvarez 10/12/2024 The patient was seen and examined in medical floor She has been stable and comfortable and denies any more hallucination and/or increasing confusion On examinationlying in bed without any acute distress and remains hemodynamically stable Appreciate psychiatric input and recommendation Her medications and labs reviewed Agree with assessment plan as outlined above by Heena Gorman PA-C and take the full responsibility of care in the hospital Dr Carey Alvarez Subjective Pt sitting in her hospital bed in no apparent distress. Had a bed bath by PICKER/PULLER this morning. No acute complaints. No F/C, Denies MICHAEL, dizziness, SOB, CP, N/V/D. Bowel movement yesterday 10/11 Review of Systems Review of Systems: At least ten systems reviewed and negative except as noted in the HPI. Physical Exam Physical Exam: Gen: WD/WN, NAD, sitting in bedside chair, A&Ox3, pleasant HEENT: Normocephalic, atraumatic,mucous membranes moist Lung: Clear to Auscultation bilaterally Heart: Regular rate, regular rhythm Abdomen: Soft, NT, ND +BS x 4 Extremities: trace BLE edema Skin: Warm, no rash Results & Data Results & Data Vital Signs (Past 12 Hours) Vital Signs Temp Pulse Pulse Resp BP Pulse Ox O2 Del Method 10/12/24 08:39 20 94 Room Air 10/12/24 08:03 36.9 C 80 64 12 118/74 90 Room Air Laboratory Results Short CBC 10/12/24 Range/Units 06:35 WBC 5.34 (4.8-10.8) K/ul Hgb 12.6 (12.0-16.0) g/dl Hct 38.3 (37.0-47.0) % Plt Count 248 (130-400) K/uL BMP 10/12/24 06:35 Sodium 139 Potassium 4.0 Chloride 106 Carbon Dioxide 28 BUN 16 Creatinine 0.69 Glucose 103 H Calcium 8.9 Diagnostic Findings Chest X-Ray 10/09/24 10:49 XR chest 1V portable CLINICAL HISTORY: swelling COMPARISON STUDY: 07/21/2024 FINDINGS: Stable mild cardiomegaly without pulmonary vascular congestion. No consolidation or pleural effusion. No pneumothorax. IMPRESSION: No acute findings. ACT 112: Negative or not required by law. Electronically signed by: Ankit Stahl M.D. 10/09/2024 12:[address] 10/09/24 10:49 CT head/brain wo con CLINICAL HISTORY: confusion. TECHNIQUE: Multiple axial CT images of the head were obtained without contrast. A dose lowering technique was utilized adhering to the principles of ALARA. CT DOSE: 580.53 mGy.cm COMPARISON: 07/21/2024 FINDINGS: No intracranial hemorrhage seen. No mass effect, midline shift, or hydrocephalus. No skull fracture seen. There are mild chronic small vessel ischemic changes. IMPRESSION: No acute findings. ACT 112: Negative or not required by law. The above report was generated using voice recognition software. It may contain grammatical, syntax or spelling errors. Electronically signed by: Ankit Stahl M.D. 10/09/2024 12:23 PM Venous Doppler Study 10/09/24 14:51 EXAM: US venous doppler LE BI CLINICAL HISTORY: edema TECHNIQUE: Ultrasound examination of bilateral lower extremity veins was performed in real time and duplex. One or more of the following were performed- spectral analysis, resistive index, waveform analysis, and pulsed Doppler. COMPARISON: None. FINDINGS: Normal phasic, non-pulsatile, and spontaneous flow is noted in the bilateral common femoral, the great saphenous, the Profunda femoris, the femoral, the popliteal, the Anterior and posterior tibial, and the peroneal veins. Visualized veins of both lower extremities demonstrate normal compressibility. No sonographic evidence of acute deep vein thrombosis (DVT) is detected in the visualized veins of both lower extremities. Compression and Augmentation: All evaluated veins compress fully with applied transducer pressure. Augmentation of venous flow is noted with distal compression. Additional Findings: Subcutaneous edema was noted at the knee level and distally. IMPRESSION: No sonographic evidence of acute DVT was detected in bilaterally visualized veins at the time of examination. Disclaimer: DVT could be missed early in the disease when clot burden is minimal. For patients with moderate and high pretest probability of DVT and negative ultrasound, the [employer] clinical guidelines recommend testing with a D-dimer assay or repeat ultrasound in 5-7 days. If symptoms worsen, the Society of radiologists in ultrasound recommends repeating ultrasound even earlier. Electronically signed by Dav Eaton 10-09-2024 6:10 PM
[2024-10-13 06:43] LABS: Hematocrit (blood only) 38.0 % (37.0-47.0); Hemoglobin 13.0 g/dl (12.0-16.0); Mean Corpuscular Hemoglobin 29.1 pg (25.0-34.0); Mean Corpuscular Volume 85.0 fL (80.0-100.0); Platelet Count 281 K/uL (130-400); RDW Standard Deviation 40.3 fL (36.4-46.3); Red Blood Count 4.47 M/uL (4.20-5.40); White Blood Count 6.64 K/ul (4.8-10.8)
[2024-10-13 07:12] LABS: Anion Gap 6.0 (3-11); Blood Urea Nitrogen 24.0 mg/dl (6-23); Calcium 8.8 mg/dl (8.6-10.3); Carbon Dioxide 26.0 mmol/L (21-32); Chloride 105.0 mmol/L (98-107); Creatinine Clr Calc Pharmacy 82.9 ml/min; Glucose 101.0 mg/dl (70-99(Fasting)); Potassium 4.2 mmol/L (3.5-5.1); Sodium 137.0 mmol/L (136-145)
--- NOTE | 2024-10-13 13:43 | Hospitalist Progress Note ---
Date of Service October 13, 2024 Assessment & Plan (1) Hallucinations: (2) Leg swelling: Plan This is a 63-year-old female who has significant past medical history of intellectual disability, hypothyroidism, HLD, intermittent asthma, GERD and allergic rhinitis who presents to ED secondary to auditory hallucinations. Patient has a mild intellectual disability but lives independently and has staff from [facility] help her manage her care for a few hours during the week but they do not provide 24 hour care. Auditory Hallucinations: Intellectual disability: No clear evidence of UTI, UA negative Has a neuropsych referral as outpt - but has not had formal eval; scheduled for 11/2024 Psych evaluated while here; appreciate reccs- patient was pretty somnolent when she saw her yesterday Pt does have auditory hallucinations; trial Abilify 2.5 mg QHS per psych recs - improved in last few days, per patient B12 normal B12 normal, VBG normal, BNP 17, UDS and UA negative. Appears to be near or at her baseline from previous encounters; although this could possibly be general worsening of cognitive decline; may need repeat neurocognitive testing Bilateral lower extremity swelling, non pitting Possible lymphedema afebrile, no leukocytosis Venous doppler US: (-) DVT Possible dependent edema given heat/humidity, encourage leg elevation No transaminitis, BNP normal ECHO EF 60-65%, LVWMN, G1DDx Empirically treated with IV Rocephin; last dose 10/11 Appears euvolemic on examination Hypothyroidism: OPT providers have decreased levothyroxine dose from 150mcg down to 100mcg between August and September 2024; closer to 09/24 TSH 0.064 here in ED Reduce Synthroid to 75 mcg daily starting 10/10 Ensure on discharge instructions that TSH level to be checked six weeks Disposition: PCP: KRAIG Freitas Code Status: Full Code Dispo: admit to med/surg, PT/OT ordered, brother looking for care homes, referral placed for [facility] however they feel patient is suited for a smaller facility. CM discussed with brother who is calling [facility] today. CM to follow Patient seen in collaboration with Dr. Win. Please see addendum. I spent a total of 45 minutes coordinating, documenting, and providing care for this patient excluding time spent in the performance of separately billed services or time spent by another provider/QHP. Admission and Anticipated Discharge Date Admission Date: October 09, 2024 Supervising Physician Co-Signing Physician Notes I have reviewed the advanced practitioner's documentation on the date of service referred in note and agree with plan. Patient's care is coordinated with Heena Gorman PA-C. Please refer to the documentation above for details of patient's presentation and for discussion of issues. I did not examine the patient. Subjective Pt sitting in her hospital bed in no apparent distress. No acute complaints. Denies any recent hallucinations. No F/C, Denies MICHAEL, dizziness, SOB, CP, N/V/D. Bowel movement yesterday 10/11 Review of Systems Review of Systems: At least ten systems reviewed and negative except as noted in the HPI. Physical Exam Physical Exam: Gen: WD/WN, NAD, sitting in bedside chair, A&Ox3, pleasant HEENT: Normocephalic, atraumatic, mucous membranes moist Lung: Clear to Auscultation bilaterally Heart: Regular rate, regular rhythm Abdomen: Soft, NT, ND +BS x 4 Extremities: trace BLE edema Skin: Warm, no rash Results & Data Results & Data Vital Signs (Past 12 Hours) Vital Signs Temp Pulse Resp BP Pulse Ox O2 Del Method 10/13/24 07:51 36.9 C 75 18 111/74 95 Room Air Laboratory Results Short CBC 10/13/24 Range/Units 06:11 WBC 6.64 (4.8-10.8) K/ul Hgb 13.0 (12.0-16.0) g/dl Hct 38.0 (37.0-47.0) % Plt Count 281 (130-400) K/uL [facility] 10/13/24 06:11 Sodium 137 Potassium 4.2 Chloride 105 Carbon Dioxide 26 BUN 24 H Creatinine 0.75 Glucose 101 H Calcium 8.8 Diagnostic Findings Chest X-Ray 10/09/24 10:49 XR chest 1V portable CLINICAL HISTORY: swelling COMPARISON STUDY: 07/21/2024 FINDINGS: Stable mild cardiomegaly without pulmonary vascular congestion. No consolidation or pleural effusion. No pneumothorax. IMPRESSION: No acute findings. ACT 112: Negative or not required by law. Electronically signed by: Ankit Stahl M.D. 10/09/2024 12:[address] 10/09/24 10:49 CT head/brain wo con CLINICAL HISTORY: confusion. TECHNIQUE: Multiple axial CT images of the head were obtained without contrast. A dose lowering technique was utilized adhering to the principles of ALARA. CT DOSE: 580.53 mGy.cm COMPARISON: 07/21/2024 FINDINGS: No intracranial hemorrhage seen. No mass effect, midline shift, or hydrocephalus. No skull fracture seen. There are mild chronic small vessel ischemic changes. IMPRESSION: No acute findings. ACT 112: Negative or not required by law. The above report was generated using voice recognition software. It may contain grammatical, syntax or spelling errors. Electronically signed by: Ankit Stahl M.D. 10/09/2024 12:23 PM Venous Doppler Study 10/09/24 14:51 EXAM: US venous doppler LE BI CLINICAL HISTORY: edema TECHNIQUE: Ultrasound examination of bilateral lower extremity veins was performed in real time and duplex. One or more of the following were performed- spectral analysis, resistive index, waveform analysis, and pulsed Doppler. COMPARISON: None. FINDINGS: Normal phasic, non-pulsatile, and spontaneous flow is noted in the bilateral common femoral, the great saphenous, the Profunda femoris, the femoral, the popliteal, the Anterior and posterior tibial, and the peroneal veins. Visualized veins of both lower extremities demonstrate normal compressibility. No sonographic evidence of acute deep vein thrombosis (DVT) is detected in the visualized veins of both lower extremities. Compression and Augmentation: All evaluated veins compress fully with applied transducer pressure. Augmentation of venous flow is noted with distal compression. Additional Findings: Subcutaneous edema was noted at the knee level and distally. IMPRESSION: No sonographic evidence of acute DVT was detected in bilaterally visualized veins at the time of examination. Disclaimer: DVT could be missed early in the disease when clot burden is minimal. For patients with moderate and high pretest probability of DVT and negative ultrasound, the [employer] clinical guidelines recommend testing with a D-dimer assay or repeat ultrasound in 5-7 days. If symptoms worsen, the Society of radiologists in ultrasound recommends repeating ultrasound even earlier. Electronically signed by Dav Eaton 10-09-2024 6:10 PM
[2024-10-14] MEDS: POLYETHYLENE (MIRALAX) 17 GM PACK PO PRN (15:08)
--- NOTE | 2024-10-14 15:19 | Hospitalist Progress Note ---
Date of Service October 14, 2024 Assessment & Plan (1) Hallucinations: (2) Leg swelling: Plan This is a 63-year-old female who has significant past medical history of intellectual disability, hypothyroidism, HLD, intermittent asthma, GERD and allergic rhinitis who presents to ED secondary to auditory hallucinations. Patient has a mild intellectual disability but lives independently and has staff from [facility] help her manage her care for a few hours during the week but they do not provide 24 hour care. Auditory Hallucinations: Intellectual disability: No clear evidence of UTI, UA negative Has a neuropsych referral as outpt - but has not had formal eval; scheduled for 11/2024 Appreciate psychiatry input Pt does have auditory hallucinations; trial Abilify 2.5 mg QHS per psych recs - improved in last few days, per patient B12 normal B12 normal, VBG normal, BNP 17, UDS and UA negative. Patient appears to be at near baseline Case management to help with discharge planning Will need neurocognitive testing as outpatient on discharge Bilateral lower extremity swelling, non pitting Possible lymphedema afebrile, no leukocytosis Venous doppler US: (-) DVT Possible dependent edema given heat/humidity, encourage leg elevation No transaminitis, BNP normal ECHO EF 60-65%, LVWMN, G1DDx Empirically treated with IV Rocephin; last dose 10/11 Appears euvolemic on examination Monitor volume status closely Hypothyroidism: OPT providers have decreased levothyroxine dose from 150mcg down to 100mcg between August and September 2024; closer to 09/24 TSH 0.064 here in ED Reduce Synthroid to 75 mcg daily starting 10/10 Ensure on discharge instructions that TSH level to be checked six weeks DVT Px: Lovenox SQ Code Status: Full Code Disposition Case management to help with discharge planning Admission and Anticipated Discharge Date Admission Date: October 09, 2024 Subjective Patient is seen and examined at bedside Offers no complaints today Denies any chest pain, dyspnea, nausea, vomiting, abdominal pain Waiting for placement Review of Systems Review of Systems: All systems reviewed & are unremarkable except as noted in Subjective Physical Exam Physical Exam: Physical Exam: Vitals signs as noted above General Appearance:Moderately built and nourished, no apparent distress Head: normocephalic, Atraumatic Eyes: normal inspection, EOMI Neck: supple, Trachea midline Respiratory/Chest: Normal breath sounds, CTA, No accessory muscle use Cardiovascular: S1, S2, +murmur Abdomen/GI:Soft, Non tender, Bowel sounds present Extremities/Musculoskeletal:normal inspection, Trace edema Neurologic/Psych:AAOX2, grossly no focal neurological deficits Skin: normal color, warm Results & Data Results & Data Vital Signs (Past 12 Hours) Vital Signs Temp Pulse Pulse Resp BP Pulse Ox O2 Del Method 10/14/24 12:45 36.9 C 76 62 18 108/68 95 Room Air 10/14/24 08:00 Room Air 10/14/24 07:50 36.8 C 70 62 18 120/72 93 Room Air
--- NOTE | 2024-10-15 15:18 | Hospitalist Progress Note ---
Date of Service October 15, 2024 Assessment & Plan (1) Hallucinations: (2) Leg swelling: Plan This is a 63-year-old female who has significant past medical history of intellectual disability, hypothyroidism, HLD, intermittent asthma, GERD and allergic rhinitis who presents to ED secondary to auditory hallucinations. Patient has a mild intellectual disability but lives independently and has staff from [facility] help her manage her care for a few hours during the week but they do not provide 24 hour care. Auditory Hallucinations: Intellectual disability: No clear evidence of UTI, UA negative Has a neuropsych referral as outpt - but has not had formal eval; scheduled for 11/2024 Appreciate psychiatry input Pt does have auditory hallucinations; trial Abilify 2.5 mg QHS per psych recs B12 normal B12 normal, VBG normal, BNP 17, UDS and UA negative. Patient appears to be at near baseline Case management to help with discharge planning Will need neurocognitive testing as outpatient on discharge Patient lives alone, unsafe to be discharged home Waiting for placement Bilateral lower extremity swelling, non pitting Possible lymphedema afebrile, no leukocytosis Venous doppler US: (-) DVT Possible dependent edema given heat/humidity, encourage leg elevation No transaminitis, BNP normal ECHO EF 60-65%, LVWMN, G1DDx Empirically treated with IV Rocephin; last dose 10/11 Appears euvolemic on examination Monitor volume status closely Hypothyroidism: OPT providers have decreased levothyroxine dose from 150mcg down to 100mcg between August and September 2024; closer to 09/24 TSH 0.064 here in ED Reduce Synthroid to 75 mcg daily starting 10/10 Ensure on discharge instructions that TSH level to be checked six weeks DVT Px: Lovenox SQ Code Status: Full Code Disposition Case management to help with discharge planning Admission and Anticipated Discharge Date Admission Date: October 09, 2024 Subjective Patient is seen and examined at bedside Still having intermittent hallucination Pleasantly confused No other complaints today Denies any chest pain, dyspnea, nausea, vomiting, abdominal pain Waiting for placement Review of Systems Review of Systems: All systems reviewed & are unremarkable except as noted in Subjective Physical Exam Physical Exam: Physical Exam: Vitals signs as noted above General Appearance:Moderately built and nourished, no apparent distress Head: normocephalic, Atraumatic Eyes: normal inspection, EOMI Neck: supple, Trachea midline Respiratory/Chest: Normal breath sounds, CTA, No accessory muscle use Cardiovascular: S1, S2, +murmur Abdomen/GI:Soft, Non tender, Bowel sounds present Extremities/Musculoskeletal:normal inspection, Trace edema Neurologic/Psych:AAOX2, grossly no focal neurological deficits Skin: normal color, warm Results & Data Results & Data Vital Signs (Past 12 Hours) Vital Signs Temp Pulse Resp BP Pulse Ox O2 Del Method 10/15/24 14:30 36.5 C 70 16 117/68 99 Room Air 10/15/24 07:42 36.5 C 60 14 112/66 94 Room Air 10/15/24 07:00 Room Air
--- NOTE | 2024-10-16 15:45 | Hospitalist Progress Note ---
Date of Service October 16, 2024 Assessment & Plan (1) Hallucinations: (2) Leg swelling: Plan This is a 63-year-old female who has significant past medical history of intellectual disability, hypothyroidism, HLD, intermittent asthma, GERD and allergic rhinitis who presents to ED secondary to auditory hallucinations. Patient has a mild intellectual disability but lives independently and has staff from [facility] help her manage her care for a few hours during the week but they do not provide 24 hour care. Auditory Hallucinations: Intellectual disability: No clear evidence of UTI, UA negative Has a neuropsych referral as outpt - but has not had formal eval; scheduled for 11/2024 Appreciate psychiatry input Pt does have auditory hallucinations; trial Abilify 2.5 mg QHS per psych recs B12 normal B12 normal, VBG normal, BNP 17, UDS and UA negative. Patient appears to be at near baseline Will need neurocognitive testing as outpatient on discharge Patient lives alone, unsafe to be discharged home Waiting for placement Case management working on placement Bilateral lower extremity swelling, non pitting Possible lymphedema afebrile, no leukocytosis Venous doppler US: (-) DVT Possible dependent edema given heat/humidity, encourage leg elevation No transaminitis, BNP normal ECHO EF 60-65%, LVWMN, G1DDx Empirically treated with IV Rocephin; last dose 10/11 Appears euvolemic on examination Monitor volume status closely Continue current management Hypothyroidism: OPT providers have decreased levothyroxine dose from 150mcg down to 100mcg between August and September 2024; closer to 09/24 TSH 0.064 here in ED Reduced levothyroxine to 75 mcg daily starting 10/10 Needs repeat thyroid function test in 6 weeks as outpatient DVT Px: Lovenox SQ Code Status: Full Code Disposition Case management to help with discharge planning Waiting for placement Admission and Anticipated Discharge Date Admission Date: October 09, 2024 Subjective Patient is seen and examined at bedside Was having PT, walking in hallway during my encounter Offers no new complaints Denies any chest pain, dyspnea, nausea, vomiting, abdominal pain Waiting for placement Review of Systems Review of Systems: All systems reviewed & are unremarkable except as noted in Subjective Physical Exam Physical Exam: Physical Exam: Vitals signs as noted above General Appearance:Moderately built and nourished, no apparent distress Head: normocephalic, Atraumatic Eyes: normal inspection, EOMI Neck: supple, Trachea midline Respiratory/Chest: Normal breath sounds, CTA, No accessory muscle use Cardiovascular: S1, S2, +murmur Abdomen/GI:Soft, Non tender, Bowel sounds present Extremities/Musculoskeletal:normal inspection, Trace edema Neurologic/Psych:AAOX2, grossly no focal neurological deficits Skin: normal color, warm Results & Data Results & Data Vital Signs (Past 12 Hours) Vital Signs Temp Pulse Pulse Resp BP Pulse Ox O2 Del Method 10/16/24 15:12 36.4 C L 70 16 145/79 H 96 Room Air 10/16/24 12:34 36.8 C 71 16 99/62 L 96 Room Air 10/16/24 08:10 36.7 C 72 18 110/75 94 Room Air 10/16/24 07:00 Room Air
--- NOTE | 2024-10-17 14:26 | Hospitalist Progress Note ---
Date of Service October 17, 2024 Assessment & Plan (1) Hallucinations: (2) Leg swelling: Plan This is a 63-year-old female who has significant past medical history of intellectual disability, hypothyroidism, HLD, intermittent asthma, GERD and allergic rhinitis who presents to ED secondary to auditory hallucinations. Patient has a mild intellectual disability but lives independently and has staff from [facility] help her manage her care for a few hours during the week but they do not provide 24 hour care. Auditory Hallucinations: Intellectual disability: No clear evidence of UTI, UA negative Has a neuropsych referral as outpt - but has not had formal eval; scheduled for 11/2024 Appreciate psychiatry input Pt does have auditory hallucinations; trial Abilify 2.5 mg QHS per psych recs B12 normal B12 normal, VBG normal, BNP 17, UDS and UA negative. Patient appears to be at near baseline Will need neurocognitive testing as outpatient on discharge Patient lives alone, unsafe to be discharged home No agitation currently Waiting for placement Bilateral lower extremity swelling, non pitting Possible lymphedema afebrile, no leukocytosis Venous doppler US: (-) DVT Possible dependent edema given heat/humidity, encourage leg elevation No transaminitis, BNP normal ECHO EF 60-65%, LVWMN, G1DDx Empirically treated with IV Rocephin; last dose 10/11 Appears euvolemic on examination Monitor volume status Hypothyroidism: OPT providers have decreased levothyroxine dose from 150mcg down to 100mcg between August and September 2024; closer to 09/24 TSH 0.064 here in ED Reduced levothyroxine to 75 mcg daily starting 10/10 Needs repeat thyroid function test in 6 weeks as outpatient DVT Px: Lovenox SQ Code Status: Full Code Disposition Case management to help with discharge planning Waiting for placement Admission and Anticipated Discharge Date Admission Date: October 09, 2024 Subjective Patient is seen and examined at bedside Sitting in chair during my encounter Offers no complaints today Waiting for placement Denies any chest pain, dyspnea, nausea, vomiting, abdominal pain Review of Systems Review of Systems: All systems reviewed & are unremarkable except as noted in Subjective Physical Exam Physical Exam: Physical Exam: Vitals signs as noted above General Appearance:Moderately built and nourished, no apparent distress Head: normocephalic, Atraumatic Eyes: normal inspection, EOMI Neck: supple, Trachea midline Respiratory/Chest: Normal breath sounds, CTA, No accessory muscle use Cardiovascular: S1, S2, +murmur Abdomen/GI:Soft, Non tender, Bowel sounds present Extremities/Musculoskeletal:normal inspection, Trace edema Neurologic/Psych:AAOX2, grossly no focal neurological deficits Skin: normal color, warm Results & Data Results & Data Vital Signs (Past 12 Hours) Vital Signs Temp Pulse Resp BP Pulse Ox O2 Del Method 10/17/24 07:10 36.5 C 60 16 115/75 95 Room Air
--- NOTE | 2024-10-18 15:01 | Hospitalist Progress Note ---
Date of Service October 18, 2024 Assessment & Plan (1) Hallucinations: (2) Leg swelling: Plan This is a 63-year-old female who has significant past medical history of intellectual disability, hypothyroidism, HLD, intermittent asthma, GERD and allergic rhinitis who presents to ED secondary to auditory hallucinations. Patient has a mild intellectual disability but lives independently and has staff from [facility] help her manage her care for a few hours during the week but they do not provide 24 hour care. Auditory Hallucinations: Intellectual disability: No clear evidence of UTI, UA negative Has a neuropsych referral as outpt - but has not had formal eval; scheduled for 11/2024 Appreciate psychiatry input Pt does have auditory hallucinations; trial Abilify 2.5 mg QHS per psych recs B12 normal B12 normal, VBG normal, BNP 17, UDS and UA negative. Patient appears to be at near baseline Will need neurocognitive testing as outpatient on discharge Patient lives alone, unsafe to be discharged home Pleasant, no agitation while hospitalized Waiting for placement Stable for discharge Bilateral lower extremity swelling, non pitting Possible lymphedema afebrile, no leukocytosis Venous doppler US: (-) DVT Possible dependent edema given heat/humidity, encourage leg elevation No transaminitis, BNP normal ECHO EF 60-65%, LVWMN, G1DDx Empirically treated with IV Rocephin; last dose 10/11 Appears euvolemic on examination Monitor volume status Hypothyroidism: OPT providers have decreased levothyroxine dose from 150mcg down to 100mcg between August and September 2024; closer to 09/24 TSH 0.064 here in ED Reduced levothyroxine to 75 mcg daily starting 10/10 Needs repeat thyroid function test in 6 weeks as outpatient DVT Px: Lovenox SQ Code Status: Full Code Disposition Case management to help with discharge planning Waiting for placement Admission and Anticipated Discharge Date Admission Date: October 09, 2024 Subjective Patient is seen and examined at bedside No complaints today Denies any chest pain, dyspnea, nausea, vomiting, abdominal pain Review of Systems Review of Systems: All systems reviewed & are unremarkable except as noted in Subjective Physical Exam Physical Exam: Physical Exam: Vitals signs as noted above General Appearance:Moderately built and nourished, no apparent distress Head: normocephalic, Atraumatic Eyes: normal inspection, EOMI Neck: supple, Trachea midline Respiratory/Chest: Normal breath sounds, CTA, No accessory muscle use Cardiovascular: S1, S2, +murmur Abdomen/GI:Soft, Non tender, Bowel sounds present Extremities/Musculoskeletal:normal inspection, Trace edema Neurologic/Psych:AAOX2, grossly no focal neurological deficits Skin: normal color, warm Results & Data Results & Data Vital Signs (Past 12 Hours) Vital Signs Temp Pulse Resp BP Pulse Ox O2 Del Method 10/18/24 08:01 36.6 C 66 16 113/73 96 Room Air
--- NOTE | 2024-10-19 14:54 | Hospitalist Progress Note ---
Date of Service October 19, 2024 Assessment & Plan (1) Hallucinations: (2) Leg swelling: Plan This is a 63-year-old female who has significant past medical history of intellectual disability, hypothyroidism, HLD, intermittent asthma, GERD and allergic rhinitis who presents to ED secondary to auditory hallucinations. Patient has a mild intellectual disability but lives independently and has staff from [facility] help her manage her care for a few hours during the week but they do not provide 24 hour care. Auditory Hallucinations: Intellectual disability: No clear evidence of UTI, UA negative Has a neuropsych referral as outpt - but has not had formal eval; scheduled for 11/2024 Appreciate psychiatry input Pt does have auditory hallucinations; trial Abilify 2.5 mg QHS per psych recs B12 normal B12 normal, VBG normal, BNP 17, UDS and UA negative. Patient appears to be at near baseline Will need neurocognitive testing as outpatient on discharge Patient lives alone, unsafe to be discharged home Pleasant, no agitation while hospitalized Waiting for placement Case management working on placement Bilateral lower extremity swelling, non pitting Possible lymphedema afebrile, no leukocytosis Venous doppler US: (-) DVT Possible dependent edema given heat/humidity, encourage leg elevation No transaminitis, BNP normal ECHO EF 60-65%, LVWMN, G1DDx Empirically treated with IV Rocephin; last dose 10/11 Appears euvolemic on examination Monitor volume status Hypothyroidism: OPT providers have decreased levothyroxine dose from 150mcg down to 100mcg between August and September 2024; closer to 09/24 TSH 0.064 here in ED Reduced levothyroxine to 75 mcg daily starting 10/10 Needs repeat thyroid function test in 6 weeks as outpatient DVT Px: Lovenox SQ Code Status: Full Code Disposition Case management to help with discharge planning Waiting for placement Admission and Anticipated Discharge Date Admission Date: October 09, 2024 Subjective Patient is seen and examined at bedside Lying down comfortably during my encounter Denies any chest pain, dyspnea, nausea, vomiting, abdominal pain Waiting for placement Review of Systems Review of Systems: All systems reviewed & are unremarkable except as noted in Subjective Physical Exam Physical Exam: Physical Exam: Vitals signs as noted above General Appearance:Moderately built and nourished, no apparent distress Head: normocephalic, Atraumatic Eyes: normal inspection, EOMI Neck: supple, Trachea midline Respiratory/Chest: Normal breath sounds, CTA, No accessory muscle use Cardiovascular: S1, S2, +murmur Abdomen/GI:Soft, Non tender, Bowel sounds present Extremities/Musculoskeletal:normal inspection, Trace edema Neurologic/Psych:AAOX2, grossly no focal neurological deficits Skin: normal color, warm Results & Data Results & Data Vital Signs (Past 12 Hours) Vital Signs Temp Pulse Pulse Resp BP Pulse Ox O2 Del Method 10/19/24 14:50 36.6 C 70 16 120/70 98 Room Air 10/19/24 12:12 36.6 C 77 18 123/80 94 Room Air 10/19/24 07:32 36.5 C 58 L 19 109/70 95 Room Air 10/19/24 07:15 Room Air
--- NOTE | 2024-10-20 15:05 | Hospitalist Progress Note ---
Date of Service October 20, 2024 Assessment & Plan (1) Hallucinations: (2) Leg swelling: Plan This is a 63-year-old female who has significant past medical history of intellectual disability, hypothyroidism, HLD, intermittent asthma, GERD and allergic rhinitis who presents to ED secondary to auditory hallucinations. Patient has a mild intellectual disability but lives independently and has staff from [facility] help her manage her care for a few hours during the week but they do not provide 24 hour care. Auditory Hallucinations: Intellectual disability: No clear evidence of UTI, UA negative Has a neuropsych referral as outpt - but has not had formal eval; scheduled for 11/2024 Appreciate psychiatry input Pt does have auditory hallucinations; trial Abilify 2.5 mg QHS per psych recs B12 normal B12 normal, VBG normal, BNP 17, UDS and UA negative. Patient appears to be at near baseline Will need neurocognitive testing as outpatient on discharge Patient lives alone, unsafe to be discharged home Pleasant, no agitation while hospitalized Waiting for placement Case management working on placement Remains medically stable without any acute symptoms and no more hallucinations Bilateral lower extremity swelling, non pitting Possible lymphedema afebrile, no leukocytosis Venous doppler US: (-) DVT Possible dependent edema given heat/humidity, encourage leg elevation No transaminitis, BNP normal ECHO EF 60-65%, LVWMN, G1DDx Empirically treated with IV Rocephin; last dose 10/11 Appears euvolemic on examination Monitor volume status Denies any symptoms in her legs and no signs and or symptoms of fluid overload Hypothyroidism: OPT providers have decreased levothyroxine dose from 150mcg down to 100mcg between August and September 2024; closer to 09/24 TSH 0.064 here in ED Reduced levothyroxine to 75 mcg daily starting 10/10 Needs repeat thyroid function test in 6 weeks as outpatient DVT Px: Lovenox SQ Code Status: Full Code Disposition Case management to help with discharge planning awaiting placement Admission and Anticipated Discharge Date Admission Date: October 09, 2024 Subjective 10/20/2024 The patient was seen and examined in medical floor She has been stable without any significant symptoms Pleasantly confused but does not have any more hallucinations Review of Systems Review of Systems: all systems reviewed and are unremarkable except as noted below Physical Exam Physical Exam: sitting on a chair without any acute distress Constitutional: well developed and well nourished; not ill appearing Eyes: PERRL, conjunctivae normal, anicteric sclerae ENMT: external ear and nose normal, oropharynx normal Neck: trachea midline, no thyromegaly Respiratory: no respiratory distress Auscultation: lungs clear to auscultation bilaterally Cardiovascular: Rate/Rhythm: regular rate and regular rhythm Heart Sounds: normal S1 and normal S2; no murmur Extremities: + edema ( trace edema bilaterally) Gastrointestinal (Abdomen): Inspection/Auscultation: normal bowel sounds; abdomen not distended Percussion/Palpation: abdomen soft; abdomen nontender Musculoskeletal: no acute arthritis involving any of the joints Neurologic: normal touch/pain/proprioception and moves all extremities; no focal motor deficits Lymphatic: no cervical or axillary lymphadenopathy Results & Data Results & Data Vital Signs (Past 12 Hours) Vital Signs Temp Pulse Resp BP Pulse Ox O2 Del Method 10/20/24 07:43 36.8 C 54 L 16 112/60 93 Room Air Medications Administered Current Inpatient Medications Acetaminophen (Acetaminophen 325 Mg Tab) 650 mg PO Q4H PRN PRN Reason: pain/fever Stop: 11/08/24 17:14 Last Admin: 10/09/24 18:42 Dose: 650 mg Aripiprazole (Aripiprazole 5 Mg Tab) 2.5 mg PO HS MEL Stop: 11/10/24 20:59 Last Admin: 10/19/24 19:21 Dose: 2.5 mg Enoxaparin Sodium (Enoxaparin Inj 40 Mg/0.4 Ml Syr) 40 mg SQ HS MEL Stop: 11/08/24 20:59 Last Admin: 10/19/24 19:21 Dose: 40 mg Famotidine (Famotidine 20 Mg Tab) 20 mg PO DAILY PRN PRN Reason: Heartburn Stop: 11/08/24 17:14 Lactobacillus Acidophilus (Advanced Probiotic 625 Mg Capsule) 1,250 mg PO DAILY MEL Stop: 11/09/24 08:59 Last Admin: 10/20/24 07:24 Dose: 1,250 mg Levothyroxine Sodium (Levothyroxine Sodium 75 Mcg Tablet) 75 mcg PO DAILYBB MEL Stop: 11/10/24 06:29 Last Admin: 10/20/24 05:02 Dose: 75 mcg Melatonin (Melatonin 3 Mg Tab) 3 mg PO HS PRN PRN Reason: Insomnia Stop: 11/08/24 17:14 Montelukast Sodium (Montelukast Sodium 10 Mg Tablet) 10 mg PO DAILY MEL Stop: 11/09/24 08:59 Last Admin: 10/20/24 07:24 Dose: 10 mg Ondansetron HCl (Ondansetron Inj 2 Mg/Ml 2 Ml Vial) 4 mg IV Q6H PRN PRN Reason: Nausea Stop: 11/08/24 17:14 Pantoprazole Sodium (Pantoprazole 40 Mg Tab) 40 mg PO DAILY MEL Stop: 11/09/24 08:59 Last Admin: 10/20/24 07:24 Dose: 40 mg Polyethylene Glycol (Polyethylene (Miralax) 17 Gm Pack) 17 gm PO DAILY PRN PRN Reason: Constipation Stop: 11/08/24 17:14 Last Admin: 10/14/24 15:08 Dose: 17 gm
--- NOTE | 2024-10-21 15:29 | Hospitalist Progress Note ---
Date of Service October 21, 2024 Assessment & Plan (1) Hallucinations: (2) Leg swelling: Plan This is a 63-year-old female who has significant past medical history of intellectual disability, hypothyroidism, HLD, intermittent asthma, GERD and allergic rhinitis who presents to ED secondary to auditory hallucinations. Patient has a mild intellectual disability but lives independently and has staff from [facility] [place] help her manage her care for a few hours during the week but they do not provide 24 hour care. Auditory Hallucinations: Intellectual disability: No clear evidence of UTI, UA negative Has a neuropsych referral as outpt - but has not had formal eval; scheduled for 11/2024 Appreciate psychiatry input Pt does have auditory hallucinations; trial Abilify 2.5 mg QHS per psych recs B12 normal B12 normal, VBG normal, BNP 17, UDS and UA negative. Patient appears to be at near baseline Will need neurocognitive testing as outpatient on discharge Patient lives alone, unsafe to be discharged home Pleasant, no agitation while hospitalized Waiting for placement Case management working on placement Remains medically stable without any acute symptoms and no more hallucinations Awaiting transfer and remains medically stable Bilateral lower extremity swelling, non pitting Possible lymphedema afebrile, no leukocytosis Venous doppler US: (-) DVT Possible dependent edema given heat/humidity, encourage leg elevation No transaminitis, BNP normal ECHO EF 60-65%, LVWMN, G1DDx Empirically treated with IV Rocephin; last dose 10/11 Appears euvolemic on examination Monitor volume status Denies any symptoms in her legs and no signs and or symptoms of fluid overload no leg pain or pain in the ankle Hypothyroidism: OPT providers have decreased levothyroxine dose from 150mcg down to 100mcg between August and September 2024; closer to 09/24 TSH 0.064 here in ED Reduced levothyroxine to 75 mcg daily starting 10/10 Needs repeat thyroid function test in 6 weeks as outpatient DVT Px: Lovenox SQ Code Status: Full Code Disposition Case management to help with discharge planning awaiting placement Admission and Anticipated Discharge Date Admission Date: October 09, 2024 Subjective 10/20/2024 The patient was seen and examined in medical floor She has been stable without any significant symptoms Pleasantly confused but does not have any more hallucinations 10/21/2024 The patient was seen and examined in medical floor She remains stable and awaiting transfer Hallucinations or delirium Review of Systems Review of Systems: all systems reviewed and are unremarkable except as noted below Physical Exam Physical Exam: sitting on a chair without any acute distress Constitutional: well developed and well nourished; not ill appearing Eyes: PERRL, conjunctivae normal, anicteric sclerae ENMT: external ear and nose normal, oropharynx normal Neck: trachea midline, no thyromegaly Respiratory: no respiratory distress Auscultation: lungs clear to auscultation bilaterally Cardiovascular: Rate/Rhythm: regular rate and regular rhythm Heart Sounds: normal S1 and normal S2; no murmur Extremities: + edema ( trace edema bilaterally) Gastrointestinal (Abdomen): Inspection/Auscultation: normal bowel sounds; abdomen not distended Percussion/Palpation: abdomen soft; abdomen nontender Neurologic: normal touch/pain/proprioception and moves all extremities; no focal motor deficits Lymphatic: no cervical or axillary lymphadenopathy Results & Data Results & Data Vital Signs (Past 12 Hours) Vital Signs Temp Pulse Pulse Pulse Resp BP BP 10/21/24 11:29 36.6 C 60 54 L 16 102/64 10/21/24 08:10 36.5 C 64 76 14 111/68 Pulse Ox O2 Del Method 10/21/24 11:29 97 Room Air 10/21/24 08:10 94 Room Air Medications Administered Current Inpatient Medications Acetaminophen (Acetaminophen 325 Mg Tab) 650 mg PO Q4H PRN PRN Reason: pain/fever Stop: 11/08/24 17:14 Last Admin: 10/09/24 18:42 Dose: 650 mg Aripiprazole (Aripiprazole 5 Mg Tab) 2.5 mg PO HS MEL Stop: 11/10/24 20:59 Last Admin: 10/20/24 19:16 Dose: 2.5 mg Enoxaparin Sodium (Enoxaparin Inj 40 Mg/0.4 Ml Syr) 40 mg SQ HS MEL Stop: 11/08/24 20:59 Last Admin: 10/20/24 19:16 Dose: 40 mg Famotidine (Famotidine 20 Mg Tab) 20 mg PO DAILY PRN PRN Reason: Heartburn Stop: 11/08/24 17:14 Lactobacillus Acidophilus (Advanced Probiotic 625 Mg Capsule) 1,250 mg PO DAILY MEL Stop: 11/09/24 08:59 Last Admin: 10/21/24 07:41 Dose: 1,250 mg Levothyroxine Sodium (Levothyroxine Sodium 75 Mcg Tablet) 75 mcg PO DAILYBB [facility] Stop: 11/10/24 06:29 Last Admin: 10/21/24 05:19 Dose: 75 mcg Melatonin (Melatonin 3 Mg Tab) 3 mg PO HS PRN PRN Reason: Insomnia Stop: 11/08/24 17:14 Montelukast Sodium (Montelukast Sodium 10 Mg Tablet) 10 mg PO DAILY [facility] Stop: 11/09/24 08:59 Last Admin: 10/21/24 07:41 Dose: 10 mg Ondansetron HCl (Ondansetron Inj 2 Mg/Ml 2 Ml Vial) 4 mg IV Q6H PRN PRN Reason: Nausea Stop: 11/08/24 17:14 Pantoprazole Sodium (Pantoprazole 40 Mg Tab) 40 mg PO DAILY [facility] Stop: 11/09/24 08:59 Last Admin: 10/21/24 07:41 Dose: 40 mg Polyethylene Glycol (Polyethylene (Miralax) 17 Gm Pack) 17 gm PO DAILY PRN PRN Reason: Constipation Stop: 11/08/24 17:14 Last Admin: 10/14/24 15:08 Dose: 17 gm
[2024-10-21 19:25] VITALS: TEMP 99; O2SAT 96
[2024-10-22 08:01] VITALS: BP 112/68; PULSE 60; RESP 16
--- NOTE | 2024-10-22 11:59 | Hospitalist Progress Note ---
Date of Service October 22, 2024 Assessment & Plan (1) Hallucinations: (2) Leg swelling: Plan This is a 63-year-old female who has significant past medical history of intellectual disability, hypothyroidism, HLD, intermittent asthma, GERD and allergic rhinitis who presents to ED secondary to auditory hallucinations. Patient has a mild intellectual disability but lives independently and has staff from [facility] help her manage her care for a few hours during the week but they do not provide 24 hour care. Auditory Hallucinations: Intellectual disability: No clear evidence of UTI, UA negative Has a neuropsych referral as outpt - but has not had formal eval; scheduled for 11/2024 Appreciate psychiatry input Pt does have auditory hallucinations; trial Abilify 2.5 mg QHS per psych recs B12 normal B12 normal, VBG normal, BNP 17, UDS and UA negative. Patient appears to be at near baseline Will need neurocognitive testing as outpatient on discharge Patient lives alone, unsafe to be discharged home Pleasant, no agitation while hospitalized Waiting for placement Case management working on placement Remains medically stable without any acute symptoms and no more hallucinations Denies any significant symptoms at rest and did not have any issues overnight for the last few days She will be discharged to SNF this afternoon Bilateral lower extremity swelling, non pitting Possible lymphedema afebrile, no leukocytosis Venous doppler US: (-) DVT Possible dependent edema given heat/humidity, encourage leg elevation No transaminitis, BNP normal ECHO EF 60-65%, LVWMN, G1DDx Empirically treated with IV Rocephin; last dose 10/11 Appears euvolemic on examination Monitor volume status Denies any symptoms in her legs and no signs and or symptoms of fluid overload no leg pain or pain in the ankle No increase in leg swelling and no arthritis involving any of the joints Hypothyroidism: [facility] providers have decreased levothyroxine dose from 150mcg down to 100mcg between August and September 2024; closer to 09/24 TSH 0.064 here in ED Reduced levothyroxine to 75 mcg daily starting 10/10 Needs repeat thyroid function test in 6 weeks as outpatient DVT Px: Lovenox SQ Code Status: Full Code Disposition Case management to help with discharge planning She will be discharged to SNF this afternoon Admission and Anticipated Discharge Date Admission Date: October 09, 2024 Subjective 10/20/2024 The patient was seen and examined in medical floor She has been stable without any significant symptoms Pleasantly confused but does not have any more hallucinations 10/21/2024 The patient was seen and examined in medical floor She remains stable and awaiting transfer Hallucinations or delirium 10/22/2024 The patient was seen and examined in medical floor She has been stable without any significant symptoms No issues noted overnight She will be discharged to rehab/skilled care facility this afternoon Review of Systems Review of Systems: all systems reviewed and are unremarkable except as noted below Physical Exam Physical Exam: sitting on a chair without any acute distress Constitutional: well developed and well nourished; not ill appearing Eyes: PERRL, conjunctivae normal, anicteric sclerae ENMT: external ear and nose normal, oropharynx normal Neck: trachea midline, no thyromegaly Respiratory: no respiratory distress Auscultation: lungs clear to auscultation bilaterally Cardiovascular: Rate/Rhythm: regular rate and regular rhythm Heart Sounds: normal S1 and normal S2; no murmur Extremities: + edema ( trace edema bilaterally) Gastrointestinal (Abdomen): Inspection/Auscultation: normal bowel sounds; abdomen not distended Percussion/Palpation: abdomen soft; abdomen nontender Neurologic: normal touch/pain/proprioception and moves all extremities; no focal motor deficits Lymphatic: no cervical or axillary lymphadenopathy Results & Data Results & Data Vital Signs (Past 12 Hours) Vital Signs Temp Pulse Resp BP Pulse Ox O2 Del Method 10/22/24 08:00 37.2 C 60 16 112/68 96 Room Air Medications Administered Current Inpatient Medications Acetaminophen (Acetaminophen 325 Mg Tab) 650 mg PO Q4H PRN PRN Reason: pain/fever Stop: 11/08/24 17:14 Last Admin: 10/09/24 18:42 Dose: 650 mg Aripiprazole (Aripiprazole 5 Mg Tab) 2.5 mg PO HS MEL Stop: 11/10/24 20:59 Last Admin: 10/21/24 19:16 Dose: 2.5 mg Enoxaparin Sodium (Enoxaparin Inj 40 Mg/0.4 Ml Syr) 40 mg SQ HS MEL Stop: 11/08/24 20:59 Last Admin: 10/21/24 19:16 Dose: 40 mg Famotidine (Famotidine 20 Mg Tab) 20 mg PO DAILY PRN PRN Reason: Heartburn Stop: 11/08/24 17:14 Lactobacillus Acidophilus (Advanced Probiotic 625 Mg Capsule) 1,250 mg PO DAILY [facility] Stop: 11/09/24 08:59 Last Admin: 10/22/24 09:21 Dose: 1,250 mg Levothyroxine Sodium (Levothyroxine Sodium 75 Mcg Tablet) 75 mcg PO DAILYBB [facility] Stop: 11/10/24 06:29 Last Admin: 10/22/24 05:31 Dose: 75 mcg Melatonin (Melatonin 3 Mg Tab) 3 mg PO HS PRN PRN Reason: Insomnia Stop: 11/08/24 17:14 Montelukast Sodium (Montelukast Sodium 10 Mg Tablet) 10 mg PO DAILY [facility] Stop: 11/09/24 08:59 Last Admin: 10/22/24 09:21 Dose: 10 mg Ondansetron HCl (Ondansetron Inj 2 Mg/Ml 2 Ml Vial) 4 mg IV Q6H PRN PRN Reason: Nausea Stop: 11/08/24 17:14 Pantoprazole Sodium (Pantoprazole 40 Mg Tab) 40 mg PO DAILY MEL Stop: 11/09/24 08:59 Last Admin: 10/22/24 09:21 Dose: 40 mg Polyethylene Glycol (Polyethylene (Miralax) 17 Gm Pack) 17 gm PO DAILY PRN PRN Reason: Constipation Stop: 11/08/24 17:14 Last Admin: 10/14/24 15:08 Dose: 17 gm
--- NOTE | 2024-10-22 17:02 | Discharge Summary ---
Date of Service October 22, 2024 Admission HPI Per Admitting Provider This is a 63-year-old female who has significant past medical history of intellectual disability, hypothyroidism, HLD, intermittent asthma, GERD and allergic rhinitis who presents to ED secondary to auditory hallucinations. Patient's brother and caregiver are at bedside. She has caregivers from the [facility] coming throughout the week. Caregiver notes increase in auditory hallucinations. This been ongoing for the past 2 months. She was initially admitted here approximately in June with similar symptoms. At that point in time she was diagnosed with a urinary tract infection. Since then she has had recurrent urinary tract infections which seemingly go [id number] with increasing auditory hallucinations. She recently completed a course of oral Macrobid from an infection in early September. Brother at bedside notes that she will come running out of [employer] due to her hallucinations. She also has been sleeping on the couch due to thinking she has, "visitors." She is currently being worked up as an outpatient and has a referral to neuropsychiatry but has yet to be evaluated. According to caregivers and family member at bedside her hallucinations have been constant over the last 2 months and have never really went away despite treatment of the urinary tract infections. They feel she has been more confused and are concerned with her living alone at home. She does live by herself and ambulates without assistance. Caregiver notes increasing lower extremity swelling and redness over the last 2 days. In ED patient remained hemodynamically stable. Her lab work and urinalysis were relatively unremarkable. She is being admitted for further workup as well as inability to live at home safely at this current time. Admission Exam Per Admitting Provider Physical Exam: Vitals signs as noted above General Appearance:Overweight, no apparent distress Head: normocephalic, Atraumatic Eyes: normal inspection, EOMI Neck: supple, Trachea midline Respiratory/Chest: Normal breath sounds, CTA, No accessory muscle use Cardiovascular: S1, S2, No murmur Abdomen/GI:Soft, Non tender, Bowel sounds present Extremities/Musculoskeletal:normal inspection, B/L LE edema Neurologic/Psych:AAOX3, grossly no focal neurological deficits Skin: normal color, warm Principal Diagnosis Auditory hallucinations, intellectual disability, hypothyroidism, bilateral lower extremity swelling likely lymphedema Discharge Exam sitting on a chair without any acute distress Constitutional well developed and well nourished; not ill appearing Eyes PERRL, conjunctivae normal, anicteric sclerae ENMT external ear and nose normal, oropharynx normal Neck trachea midline, no thyromegaly Respiratory no respiratory distress Auscultation: lungs clear to auscultation bilaterally Cardiovascular Rate/Rhythm: regular rate and regular rhythm Heart Sounds: normal S1 and normal S2; no murmur Extremities: + edema ( trace edema bilaterally) Gastrointestinal (Abdomen) Inspection/Auscultation: normal bowel sounds; abdomen not distended Percussion/Palpation: abdomen soft; abdomen nontender Neurologic normal touch/pain/proprioception and moves all extremities; no focal motor deficits Lymphatic no cervical or axillary lymphadenopathy Discharge Data Allergies Allergy/AdvReac Type Severity Reaction Status Date / Time No Known Allergies Allergy Verified 07/21/24 15:11 Consultations 10/09/24 14:15 ED Decision to Admit Stat 10/09/24 14:55 Consult Psychiatry Routine Ordered Studies 10/09/24 10:49 CT head/brain wo con Stat 10/09/24 14:51 US venous doppler [facility] Stat Hospital Course (1) Hallucinations: (2) Leg swelling: Plan This is a 63-year-old female who has significant past medical history of intellectual disability, hypothyroidism, HLD, intermittent asthma, GERD and allergic rhinitis who presents to ED secondary to auditory hallucinations. Patient has a mild intellectual disability but lives independently and has staff from [facility] help her manage her care for a few hours during the week but they do not provide 24 hour care. Auditory Hallucinations: Intellectual disability: No clear evidence of UTI, UA negative Has a neuropsych referral as outpt - but has not had formal eval; scheduled for 11/2024 Appreciate psychiatry input Pt does have auditory hallucinations; trial Abilify 2.5 mg QHS per psych recs B12 normal B12 normal, VBG normal, BNP 17, UDS and UA negative. Patient appears to be at near baseline Will need neurocognitive testing as outpatient on discharge Patient lives alone, unsafe to be discharged home Pleasant, no agitation while hospitalized Waiting for placement Case management working on placement Remains medically stable without any acute symptoms and no more hallucinations Denies any significant symptoms at rest and did not have any issues overnight for the last few days She will be discharged to SNF this afternoon Bilateral lower extremity swelling, non pitting Possible lymphedema afebrile, no leukocytosis Venous doppler US: (-) DVT Possible dependent edema given heat/humidity, encourage leg elevation No transaminitis, BNP normal ECHO EF 60-65%, LVWMN, G1DDx Empirically treated with IV Rocephin; last dose 10/11 Appears euvolemic on examination Monitor volume status Denies any symptoms in her legs and no signs and or symptoms of fluid overload no leg pain or pain in the ankle No increase in leg swelling and no arthritis involving any of the joints Hypothyroidism: OPT providers have decreased levothyroxine dose from 150mcg down to 100mcg between August and September 2024; closer to 09/24 TSH 0.064 here in ED Reduced levothyroxine to 75 mcg daily starting 10/10 Needs repeat thyroid function test in 6 weeks as outpatient DVT Px: Lovenox SQ Code Status: Full Code Disposition Case management to help with discharge planning She will be discharged to SNF this afternoon Total Time Total Time Spent Total Time Spent (In Minutes): 45 minutes Discharge Plan Discharge Items Patient Disposition: Personal Halfway Reason For Visit: AMS Discharge Diagnosis: Auditory hallucinations, intellectual disability, hypothyroidism, bilateral lower extremity swelling likely lymphedema Condition on Discharge: Good Activity: Resume your previous activity Non-emergency contact: Primary Care Provider Call non-emergency contact if: you have any medication questions and your symptoms worsen Follow-up/Referrals: Valorie Fowler CRNP [Primary Care Provider] - ( Date & Time 10/29/2024 1:40 PM Provider: Radha Melo, [facility] ) Diet: Regular Diet Texture: Easy to Chew Addtl Attending Provider Instructions: Please take precautions to avoid falls Take your medications as advised Please keep appointments with your healthcare providers You will need to have a repeat TSH tested in about 6 weeks Pending Studies at Discharge: No Stand-Alone Forms: My [email or web address], Smoking Cessation Skilled Items Patient informed of condition?: Yes DNR: No Discharge Level of Care: Skilled Communicable Disease: No Discharge Prognosis: Stable Lines: None Urinary Catheter: No Medications and DC Order Prescriptions: New levothyroxine [Synthroid] 75 mcg Tablet 75 mcg PO DAILYBB Qty: 30 0RF aripiprazole [Abilify] 5 mg Tablet 2.5 mg PO HS Qty: 30 0RF Continued omeprazole 20 mg capsule,delayed release(DR/EC) 20 mg PO DAILY Qty: 30 0RF montelukast 10 mg tablet 10 mg PO DAILY Qty: 30 0RF estradiol 0.01 % (0.1 mg/gram) cream 1 applic VAGINAL DIRECTED Qty: 30 0RF Rx Instructions: Or 1 tube Advanced Probiotic 625 mg (10 billion cell) Capsule 1 cap PO DAILY Qty: 30 0RF Discontinued levothyroxine [Synthroid] 150 mcg tablet 100 mcg PO DAILYBB Discharge Orders: Discharge Order (Routine); Ordered 10/22/24 Ordered By: Migdalia Alvarez Admission Data Admit Date/Time: 10/09/24 14:27 Attending Provider: Migdalia Alvarez Admit Provider: Nitin Win Primary Care Provider: Valorie Fowler Other Providers: Marta Carlton; Ankit Ferreira; Linda Harman; Brittany Coley; Jay Page; Lula Iyer; Evin iVckers; Nitin Win; Kendrick Liao Other Interventions: Discharge Summary Assessment (RN) Last Done: 10/22/24 15:10
== END 2024-10-22 15:32 | disposition home or self-care (01) | DRG 880 ==
LOC: ED 10:32 → SUATTDRO 14:27 → EDINP 14:27 → 3E 18:27